=== PATIENT | female | born 1945 | race Caucasian/White ===

== ENCOUNTER 2019-05-10 13:25 | Outpatient (CLI) | payer MEDICARE, SELFPAY ==
--- NOTE | 2019-05-10 13:37 | ECG_ITS ---
Measurements Intervals [place] Rate: 68 P: 77 HI: 154 QRS: 69 QRSD: 84 T: 69 QT: 375 QTc: 399 Interpretive Statements SINUS RHYTHM WITH MARKED SINUS ARRHYTHMIA NORMAL ECG Electronically Signed On 05-10-2019 13:55:11 AIRCRAFT SERVIC[employer] by Sammy Allred D.O.
== END 2019-05-10 13:26 | disposition home or self-care (01) ==
LOC: CHSCARD 13:33
PROVIDERS: PCP Internal Medicine; Visit Provider Internal Medicine Cardiovascular Disease
DX: I49.9 Cardiac arrhythmia, unspecified (principal)
CPT/HCPCS: 93005

== ENCOUNTER 2019-05-17 09:32 | Outpatient (RCR) | payer MEDICARE, SELFPAY ==
--- NOTE | 2019-05-17 10:47 | PTOPEVAL ---
Thank you for referring this patient to [facility]. Please review, sign, date and return this plan of care [facility]. I agree with and certify that the following plan of care is medically necessary. Referring Physician Date Admitting Provider: Attending Provider: Darius Urbina MD Referring Provider: *PT Outpatient Evaluation Start: 05/17/19 10:10 Freq: Status: Active Protocol: Document 05/17/19 10:05 [facility] (Rec: 05/17/19 10:36 [facility] [id number]) Therapy Assessment Status Assessment Status Assessment Status Evaluation Outpatient Past Medical History Past Medical History Reason Unable to Obtain see patient intake form Evaluation Information Problem Diagnosis low back pain, L hip pain Onset 05/03/19 Additional Evaluation Detail oswestry = 56% functionally declined Subjective Information patient reports she has been Query Text:As Reported By Patient/ having pain in the low back Family and L side posterior hip for a few months. she reports no injury to the low back. she reports she has x-ray and believes she has also had an MRI of the back. patient reports she has increased pain with walking. she reports she has decreased pain with sitting with her legs propper up. she reports she has increased pain especially with cleaning her house (vaccuming , bending, dusting). she reports she is taking tramadol - she has been on this for pain in the back for a year or more. she reports she does not see much benefit from the tramadol. Prior Level of Function Comments Additional Prior Level of Function prior to a few months ago when Comments her back pain became increased she was able to do all above listed activities. she reports she feels the L side of her low back seems be getting worse more quickly. Pain Assessment Timing of Pain Assessment Timing of Pain Assessment Assessment Pain Scale Pain Scale Used Numeric (1 - 10) Self Report Pain Assessment Left Lower Back Reported Pain Level 7 Pain Description
== END 2019-05-31 17:00 | disposition home or self-care (01) ==
LOC: CHSPT 09:32
PROVIDERS: PCP Internal Medicine; Visit Provider Internal Medicine
DX: M54.5 Low back pain (principal)
CPT/HCPCS: 97014; 97110; 97161; G0283

== ENCOUNTER 2019-06-02 10:00 | Outpatient (RCR) | payer MEDICARE, SELFPAY | END 2019-06-07 12:52 | disposition home or self-care (01) | LOC: CHSSENLIFE 10:00 | PROVIDERS: PCP Internal Medicine; Visit Provider Psychiatry & Neurology Psychiatry | DX: F33.0 Major depressive disorder, recurrent, mild (principal); F41.9 Anxiety disorder, unspecified | CPT/HCPCS: 90792; 90853; 99213; G0463 ==

== ENCOUNTER 2019-08-04 09:41 | Outpatient (CLI) | payer MEDICARE, SELFPAY ==
[2019-08-04 09:52] LABS: Basophils Absolute Auto 0.04 K/mm3 (0.00-0.10); Basophils Percent Auto 0.8 % (0.0-1.0); Eosinophils Absolute Auto 0.14 K/mm3 (0.02-0.50); Eosinophils Percent Auto 2.9 % (1.0-6.0); Hematocrit 46.8 % (35.0-42.0); Immature Granulocyte Absolute 0.02 K/mm3 (0.00-0.00); Immature Granulocyte Percent A 0.4 % (0.0-0.0); Lymphocytes Absolute Auto 1.64 K/mm3 (1.10-4.50); Lymphocytes Percent Auto 33.5 % (18.0-42.0); Mean Corpuscular HGB Conc 29.9 g/dL (32.0-36.0); Mean Corpuscular Hemoglobin 31.9 pg (27.0-31.0); Mean Corpuscular Volume 106.6 fL (78.0-102.0); Mean Platelet Volume 10.3 fl (9.2-11.8); Monocytes Absolute Auto 0.35 K/mm3 (0.10-0.90); Monocytes Percent Auto 7.2 % (2.0-11.0); Neutrophils Absolute Auto 2.7 K/mm3 (1.7-7.2); Neutrophils Percent Auto 55.2 % (50.0-70.0); Platelet Count Result 198 K/mm3 (150-420); Red Blood Count 4.39 M/mm3 (4.20-5.40); Red Cell Distribution Width 12.7 % (11.6-14.4); White Blood Count 4.9 K/mm3 (4.8-10.8)
[2019-08-04 09:57] LABS: Add Urine Microscopic? NO; Appearance Urine Clear (Clear); Bilirubin Urine Negative (Negative); Blood Urine Negative (Negative); Color Urine Yellow (Yellow); Glucose Urine UA Negative (Negative); Ketones Urine Negative (Negative); Leukocyte Esterase Ur Negative (Negative); Nitrate Urine Negative (Negative); Protein Urine Negative (Negative); Specific Grav Ur 1.025 (1.010-1.020)
[2019-08-04 10:37] LABS: Alanine Aminotransferase 15 U/L (14-59); Albumin Level 3.3 g/dL (3.4-5.0); Alkaline Phosphatase 89 U/L (46-116); Anion Gap 14.7 mmol/L (7-16); Aspartate Amino Transferase 30 U/L (15-37); Bilirubin,Total 0.4 mg/dL (0.00-1.00); Blood Urea Nitrogen 18 mg/dL (7-18); Calcium 8.3 mg/dL (8.5-10.1); Carbon Dioxide 27 mmol/L (21-32); Chloride 107 mmol/L (98-108); Cholesterol 243 mg/dL (0-200); Estimated Glomerular Filt Rate > 60; Glucose 95 mg/dL (70-99); HDL Direct 72 mg/dL (40-60); LDL Cholesterol Calculated 159 mg/dL (<130); Osmolality Calculated 299 mOsm/kg (285-295); Potassium 4.7 mmol/L (3.5-5.1); Sodium 144 mmol/L (136-145); Total Protein 6.6 g/dL (6.4-8.2); Triglycerides 62 mg/dL (0-150)
== END 2019-08-04 09:42 | disposition home or self-care (01) ==
LOC: CHSLAB 09:43
PROVIDERS: PCP Internal Medicine; Visit Provider Internal Medicine
DX: E78.5 Hyperlipidemia, unspecified (principal); I10 Essential (primary) hypertension; D64.9 Anemia, unspecified
CPT/HCPCS: 36415; 80053; 80061; 81003; 84443; 85025

== ENCOUNTER 2019-11-09 09:40 | Outpatient (CLI) | payer MEDICARE, SELFPAY ==
[2019-11-09 09:50] LABS: Basophils Absolute Auto 0.03 K/mm3 (0.00-0.10); Basophils Percent Auto 0.6 % (0.0-1.0); Eosinophils Percent Auto 4.1 % (1.0-6.0); Hematocrit 40.8 % (35.0-42.0); Hemoglobin 13.2 g/dL (11.7-13.8); Immature Granulocyte Absolute 0.01 K/mm3 (0.00-0.00); Immature Granulocyte Percent A 0.2 % (0.0-0.0); Lymphocytes Absolute Auto 1.61 K/mm3 (1.10-4.50); Lymphocytes Percent Auto 33.4 % (18.0-42.0); Mean Corpuscular HGB Conc 32.4 g/dL (32.0-36.0); Mean Platelet Volume 9.5 fl (9.2-11.8); Monocytes Percent Auto 8.3 % (2.0-11.0); Neutrophils Absolute Auto 2.6 K/mm3 (1.7-7.2); Neutrophils Percent Auto 53.4 % (50.0-70.0); Platelet Count Result 236 K/mm3 (150-420); Red Blood Count 4.12 M/mm3 (4.20-5.40); White Blood Count 4.8 K/mm3 (4.8-10.8)
[2019-11-09 11:02] LABS: Alanine Aminotransferase 14 U/L (14-59); Albumin Level 3.4 g/dL (3.4-5.0); Alkaline Phosphatase 84 U/L (46-116); Anion Gap 5 mmol/L (8-16); Aspartate Amino Transferase 27 U/L (15-37); Bilirubin,Total 0.4 mg/dL (0.00-1.00); Blood Urea Nitrogen 19 mg/dL (7-18); Calcium 9.2 mg/dL (8.5-10.1); Carbon Dioxide 33 mmol/L (21-32); Chloride 104 mmol/L (98-108); Estimated Glomerular Filt Rate 44; Glucose 83 mg/dL (70-99); Osmolality Calculated 295 mOsm/kg (285-295); Potassium 4.6 mmol/L (3.5-5.1); Sodium 142 mmol/L (136-145); Total Protein 6.7 g/dL (6.4-8.2)
[2019-11-11 14:38] LABS: Parathyroid Intact 70 pg/mL (14-64)
[2019-11-12 20:02] LABS: Vitamin D 1,25 (OH)2 Total 45 pg/mL (18-72); Vitamin D2 1,25 (OH)2 <8 pg/mL; Vitamin D3 1,25 (OH)2 45 pg/mL
[2019-11-16 14:42] LABS: Vitamin D 25 Hydroxy 51 ng/mL (30-100)
== END 2019-11-09 09:41 | disposition home or self-care (01) ==
PROVIDERS: PCP Internal Medicine; Visit Provider Internal Medicine
DX: E88.09 Other disorders of plasma-protein metabolism, not elsewhere classified (principal); D75.89 Other specified diseases of blood and blood-forming organs; E55.9 Vitamin D deficiency, unspecified
CPT/HCPCS: 36415; 80053; 82306; 82652; 83970; 85025

== ENCOUNTER 2020-02-07 13:42 | Outpatient (CLI) | payer MEDICARE, SELFPAY ==
[2020-02-07 13:54] LABS: Basophils Absolute Auto 0.02 K/mm3 (0.00-0.10); Basophils Percent Auto 0.3 % (0.0-1.0); Eosinophils Absolute Auto 0.15 K/mm3 (0.02-0.50); Hematocrit 41.4 % (35.0-42.0); Hemoglobin 13.3 g/dL (11.7-13.8); Immature Granulocyte Absolute 0.03 K/mm3 (0.00-0.00); Immature Granulocyte Percent A 0.4 % (0.0-0.0); Lymphocytes Absolute Auto 1.78 K/mm3 (1.10-4.50); Lymphocytes Percent Auto 23.3 % (18.0-42.0); Mean Corpuscular HGB Conc 32.1 g/dL (32.0-36.0); Mean Corpuscular Volume 99.8 fL (78.0-102.0); Mean Platelet Volume 9.8 fl (9.2-11.8); Monocytes Absolute Auto 0.62 K/mm3 (0.10-0.90); Monocytes Percent Auto 8.1 % (2.0-11.0); Neutrophils Percent Auto 65.9 % (50.0-70.0); Platelet Count Result 228 K/mm3 (150-420); Red Blood Count 4.15 M/mm3 (4.20-5.40); White Blood Count 7.6 K/mm3 (4.8-10.8)
[2020-02-07 14:02] LABS: Add Urine Microscopic? YES; Appearance Urine Clear (Clear); Bilirubin Urine Negative (Negative); Blood Urine Negative (Negative); Color Urine Yellow (Yellow); Glucose Urine UA Negative (Negative); Ketones Urine 1+ (Negative); Leukocyte Esterase Ur Trace (Negative); Nitrate Urine Negative (Negative); Protein Urine 1+ (Negative); Specific Grav Ur >= 1.030 (1.010-1.020); pH Urine 5.5 (5.0-8.0)
[2020-02-07 14:10] LABS: Bacteria Urine 1+ /hpf; Mucus Urine Moderate /lpf; RBC Urine 0-2 /hpf (0-2); Squamous Epithelial Cell Urine Few /hpf (Few)
[2020-02-07 14:29] LABS: Alanine Aminotransferase 15 U/L (14-59); Albumin Level 3.8 g/dL (3.4-5.0); Alkaline Phosphatase 86 U/L (46-116); Anion Gap 9 mmol/L (8-16); Aspartate Amino Transferase 23 U/L (15-37); Bilirubin,Total 0.4 mg/dL (0.00-1.00); Blood Urea Nitrogen 21 mg/dL (7-18); Calcium 9.5 mg/dL (8.5-10.1); Carbon Dioxide 30 mmol/L (21-32); Chloride 105 mmol/L (98-108); Cholesterol 180 mg/dL (0-200); Estimated Glomerular Filt Rate 44; Glucose 77 mg/dL (70-99); HDL Direct 73 mg/dL (40-60); LDL Cholesterol Calculated 93 mg/dL (<130); Osmolality Calculated 300 mOsm/kg (285-295); Potassium 4.6 mmol/L (3.5-5.1); Sodium 144 mmol/L (136-145); Total Protein 6.9 g/dL (6.4-8.2); Triglycerides 69 mg/dL (0-150)
== END 2020-02-07 13:43 | disposition home or self-care (01) ==
LOC: CHSLAB 13:45
PROVIDERS: PCP Internal Medicine; Visit Provider Internal Medicine
DX: E78.5 Hyperlipidemia, unspecified (principal); I10 Essential (primary) hypertension; R82.90 Unspecified abnormal findings in urine
CPT/HCPCS: 36415; 80053; 80061; 81001; 85025; 87077; 87086; 87088; 87186

== ENCOUNTER 2020-06-27 10:33 | Outpatient (CLI) | payer MEDICARE, SELFPAY ==
[2020-06-27 10:44] LABS: Basophils Absolute Auto 0.03 K/mm3 (0.00-0.10); Basophils Percent Auto 0.6 % (0.0-1.0); Eosinophils Absolute Auto 0.36 K/mm3 (0.02-0.50); Eosinophils Percent Auto 6.8 % (1.0-6.0); Hematocrit 40.3 % (35.0-42.0); Immature Granulocyte Absolute 0.02 K/mm3 (0.00-0.00); Immature Granulocyte Percent A 0.4 % (0.0-0.0); Lymphocytes Percent Auto 39.5 % (18.0-42.0); Mean Corpuscular HGB Conc 32.3 g/dL (32.0-36.0); Mean Corpuscular Volume 99.3 fL (78.0-102.0); Mean Platelet Volume 9.3 fl (9.2-11.8); Monocytes Absolute Auto 0.44 K/mm3 (0.10-0.90); Monocytes Percent Auto 8.3 % (2.0-11.0); Neutrophils Absolute Auto 2.4 K/mm3 (1.7-7.2); Neutrophils Percent Auto 44.4 % (50.0-70.0); Platelet Count Result 222 K/mm3 (150-420); Red Blood Count 4.06 M/mm3 (4.20-5.40); Red Cell Distribution Width 12.7 % (11.6-14.4); White Blood Count 5.3 K/mm3 (4.8-10.8)
[2020-06-27 11:59] LABS: Alanine Aminotransferase 17 U/L (14-59); Albumin Level 3.4 g/dL (3.4-5.0); Alkaline Phosphatase 86 U/L (46-116); Anion Gap 8 mmol/L (8-16); Aspartate Amino Transferase 25 U/L (15-37); Bilirubin,Total 0.7 mg/dL (0.00-1.00); Blood Urea Nitrogen 21 mg/dL (7-18); CRP < 0.2 mg/dL (0.0-0.9); Carbon Dioxide 29 mmol/L (21-32); Chloride 106 mmol/L (98-108); Cholesterol 186 mg/dL (0-200); Estimated Glomerular Filt Rate 51; Glucose 78 mg/dL (70-99); HDL Direct 63 mg/dL (40-60); LDL Cholesterol Calculated 110 mg/dL (<130); Osmolality Calculated 298 mOsm/kg (285-295); Potassium 4.4 mmol/L (3.5-5.1); Sodium 143 mmol/L (136-145); Total Protein 6.5 g/dL (6.4-8.2); Triglycerides 66 mg/dL (0-150)
== END 2020-06-27 10:34 | disposition home or self-care (01) ==
LOC: CHSLAB 10:36
PROVIDERS: PCP Internal Medicine; Visit Provider Internal Medicine Cardiovascular Disease
DX: E78.5 Hyperlipidemia, unspecified (principal); I10 Essential (primary) hypertension; G89.29 Other chronic pain
CPT/HCPCS: 36415; 80053; 80061; 85025; 86140

== ENCOUNTER 2020-08-08 11:39 | Outpatient (CLI) | payer MEDICARE, SELFPAY ==
--- NOTE | ~2020-08-08 | XR_ITS ---
[id number]_[id number] 08/08/2020 12:09 Indication: Neck pain. Limited range of motion. Procedure: 4 view cervical spine Comparison: No prior studies for comparison. Findings: Normal cervical alignment. Vertebral body heights are maintained. No significant disc narro wing. Odontoid process within normal limits. There is mild multilevel uncinate and facet hypertrophy. There is carotid atherosclerotic changes, left greater than right. Lung apices are normal. Impression: 1: Mild cervical spondylosis. Reviewed, dictated and finalized at location A. Impression: 1: Mild cervical spondylosis.
--- NOTE | ~2020-08-08 | XR_ITS ---
EXAMINATION: XR heel LT min 2V DATE: 08/08/2020 12:09 INDICATION: Left heel pain and swelling. TECHNIQUE: 2 views of left calcaneus were obtained. COMPARISON: None. FINDINGS: Bone alignment is normal. No fracture. There is mild midfoot osteoarthritis. There are enth esophytes at the posterior and plantar aspects of calcaneal tuberosity. There is soft tissue swelling posterior to calcaneus, consistent with Mick deformity. IMPRESSION: 1. Mick deformity. Reviewed, dictated and finalized at location B. IMPRESSION: 1. Mick deformity.
--- NOTE | ~2020-08-08 | XR_ITS ---
EXAMINATION: XR ankle RT min 3V DATE: 08/08/2020 12:09 INDICATION: Right ankle pain. TECHNIQUE: 5 views of right ankle were obtained. COMPARISON: None. FINDINGS: Bone alignment is normal. No fracture. There is mild osteoarthritis of talonavicular joint. There are enthesophytes at the posterior and plantar aspects of calcaneal tuberosity. There is soft tissue swelling about the ankle. IMPRESSION: 1. No fracture. Reviewed, dictated and finalized at location B. IMPRESSION: 1. No fracture.
== END 2020-08-08 11:40 | disposition home or self-care (01) ==
LOC: CHSIMG 11:41
PROVIDERS: PCP Internal Medicine; Visit Provider Internal Medicine
DX: M79.672 Pain in left foot (principal); M25.571 Pain in right ankle and joints of right foot; M54.2 Cervicalgia
CPT/HCPCS: 72040; 73610; 73650

== ENCOUNTER 2020-08-15 15:12 | Outpatient (RCR) | payer MEDICARE, SELFPAY ==
--- NOTE | 2020-08-15 18:03 | PTOPEVAL ---
Thank you for referring Namita Trivedi to [facility].? The patient is scheduled to be seen for therapy? ____x/week for ___ weeks. Please review, sign, date and return this plan of care ARI. I agree with and certify that the following plan of care is medically necessary. Referring Physician Date Admitting Provider: Attending Provider: Darius Urbina MD Referring Provider: *PT Outpatient Evaluation Start: 08/15/20 15:19 Freq: Status: Active Protocol: Document 08/15/20 15:00 [facility] (Rec: 08/15/20 16:33 [facility] [id number]) Evaluation Information Problem Diagnosis cervical stenosis and L achilles tendinitis Onset 08/08/20 Subjective Information Namita Trivedi is a 75 year old Query Text:As Reported By Patient/ female who reports neck pain Family and L achilles pain. She reports both started insidiously about 2-3 months ago. She reports difficulty turning her head, looking up, and lateral flexing her neck in both durections. She reports difficulty looking over both shoulders to check her blind spot when driving. She reports increased achilles pain with ambulation. She is currently taking tramadol for her LBP, but no additional pain medications for her neck or achilles. She has 2 stairs to enter her home and reports no falls. She reports a hx of HTN and a heart arythmia monitored by her MD. Prior Level of Function Comments Additional Prior Level of Function Likes to walk her dog and Comments hopes to return to walking for short distances outside. Pain Assessment Pain Scale Pain Scale Used Numeric (1 - 10) Self Report Pain Assessment Left Posterior Foot/Feet Reported Pain Level 5 Lowest Pain Intensity 2 Greatest Pain Intensity 7 Neck Reported Pain Level 2 Lowest Pain Intensity 2 Greatest Pain Intensity 7 Pain Score Pain Score 2,5: Self Report Interventions Used Interventions Used By Clinicians Activity or ADL's,Exercise Cervical and Lumbar ROM Cervical ROM Cervical Flexion (0-60) 20 Query Text:Active in Degrees Cervical Extension (0-70) 30 Query
--- NOTE | 2020-09-28 10:48 | PTOPEVAL ---
Thank you for referring Namita Trivedi to [facility].? The patient is scheduled to be seen for therapy? ____x/week for ___ weeks. Please review, sign, date and return this plan of care ARI. I agree with and certify that the following plan of care is medically necessary. Referring Physician Date Admitting Provider: Attending Provider: Darius Urbina MD Referring Provider: *PT Outpatient Evaluation Start: 08/15/20 15:19 Freq: Status: Active Protocol: Document 09/28/20 09:45 J (Rec: 09/28/20 10:46 [facility] [id number]) Therapy Assessment Status Assessment Status Assessment Status Re-evaluation Evaluation Information Problem Diagnosis cervical stenosis and L achilles tendinitis Onset 08/08/20 Additional Evaluation Detail LEFS = 61% functional decline (patient reports mostly due to hip and back) NDI = 30% functional decline Subjective Information patient reports she is sore Query Text:As Reported By Patient/ this date. she reports she Family drove to [place] yesterday and reports she has been sore since this drive. she reports the soreness is increased on the R side of her neck and R shoulder this date. Pain Assessment Timing of Pain Assessment Timing of Pain Assessment Assessment Pain Scale Pain Scale Used Numeric (1 - 10) Self Report Pain Assessment Left Posterior Foot/Feet Reported Pain Level 0 Neck Reported Pain Level 6 Greatest Pain Intensity 6 Pain Score Pain Score 0,6: Self Report Interventions Used Interventions Used By Clinicians Activity or ADL's,Education, Electrical Stimulation, Exercise,Heat,Manual Therapy Techniques Cervical and Lumbar ROM Cervical ROM Cervical Flexion (0-60) 45 Query Text:Active in Degrees Cervical Extension (0-70) 45 Query Text:Active in Degrees Cervical Lateral Flexion Right (0-50) 20 Query Text:Active in Degrees Cervical Lateral Flexion Left (0-50) 20 Query Text:Active in Degrees Cervical Rotation Right (0-90) 45 Query Text:Active in Degrees Cervical Rotation Left (0-90) 50 Query Text:Active in Degrees Lower Extremity Range of Motion General Lower Extremity Range of Motion Gross Lower Extremity Range of Motion L ankle AROM PF 50, DF 12 Comments R ankle AROM PF 55, DF 15 Lower Extremity Muscle Strength Testing General Lower Extremity Strength Gross Lower E
--- NOTE | 2020-09-28 10:52 | PTOPEVAL ---
Thank you for referring Namita Trivedi to [facility].? The patient is scheduled to be seen for therapy? ____x/week for ___ weeks. Please review, sign, date and return this plan of care ARI. I agree with and certify that the following plan of care is medically necessary. Referring Physician Date Admitting Provider: Attending Provider: Darius Urbina MD Referring Provider: *PT Outpatient Evaluation Start: 08/15/20 15:19 Freq: Status: Active Protocol: Document 09/28/20 09:45 J (Rec: 09/28/20 10:46 [facility] [id number]) Therapy Assessment Status Assessment Status Assessment Status Re-evaluation Evaluation Information Problem Diagnosis cervical stenosis and L achilles tendinitis Onset 08/08/20 Additional Evaluation Detail LEFS = 61% functional decline (patient reports mostly due to hip and back) NDI = 30% functional decline Subjective Information patient reports she is sore Query Text:As Reported By Patient/ this date. she reports she Family drove to [place] yesterday and reports she has been sore since this drive. she reports the soreness is increased on the R side of her neck and R shoulder this date. Pain Assessment Timing of Pain Assessment Timing of Pain Assessment Assessment Pain Scale Pain Scale Used Numeric (1 - 10) Self Report Pain Assessment Left Posterior Foot/Feet Reported Pain Level 0 Neck Reported Pain Level 6 Greatest Pain Intensity 6 Pain Score Pain Score 0,6: Self Report Interventions Used Interventions Used By Clinicians Activity or ADL's,Education, Electrical Stimulation, Exercise,Heat,Manual Therapy Techniques Cervical and Lumbar ROM Cervical ROM Cervical Flexion (0-60) 45 Query Text:Active in Degrees Cervical Extension (0-70) 45 Query Text:Active in Degrees Cervical Lateral Flexion Right (0-50) 20 Query Text:Active in Degrees Cervical Lateral Flexion Left (0-50) 20 Query Text:Active in Degrees Cervical Rotation Right (0-90) 45 Query Text:Active in Degrees Cervical Rotation Left (0-90) 50 Query Text:Active in Degrees Lower Extremity Range of Motion General Lower Extremity Range of Motion Gross Lower Extremity Range of Motion L ankle AROM PF 50, DF 12 Comments R ankle AROM PF 55, DF 15 Lower Extremity Muscle Strength Testing General Lower Extremity Strength Gross Lower E
== END 2020-10-03 23:59 | disposition home or self-care (01) ==
LOC: CHSPT 15:12
PROVIDERS: PCP Internal Medicine; Visit Provider Internal Medicine
DX: M54.2 Cervicalgia (principal); M47.812 Spondylosis without myelopathy or radiculopathy, cervical region; M76.62 Achilles tendinitis, left leg
CPT/HCPCS: 97014; 97110; 97140; 97161; G0283

== ENCOUNTER 2021-01-26 12:33 | Outpatient (CLI) | payer MEDICARE, SELFPAY ==
[2021-01-26 12:53] LABS: Basophils Absolute Auto 0.02 K/mm3 (0.00-0.10); Basophils Percent Auto 0.4 % (0.0-1.0); Eosinophils Percent Auto 3.8 % (1.0-6.0); Immature Granulocyte Absolute 0.02 K/mm3 (0.00-0.00); Immature Granulocyte Percent A 0.4 % (0.0-0.0); Lymphocytes Percent Auto 30.5 % (18.0-42.0); Mean Corpuscular Hemoglobin 31.9 pg (27.0-31.0); Mean Corpuscular Volume 102.9 fL (78.0-102.0); Mean Platelet Volume 9.3 fl (9.2-11.8); Monocytes Absolute Auto 0.37 K/mm3 (0.10-0.90); Neutrophils Percent Auto 57.9 % (50.0-70.0); Platelet Count Result 212 K/mm3 (150-420); Red Blood Count 4.08 M/mm3 (4.20-5.40); Red Cell Distribution Width 12.3 % (11.6-14.4); White Blood Count 5.3 K/mm3 (4.8-10.8)
[2021-01-26 13:41] LABS: Alanine Aminotransferase 17 U/L (14-59); Albumin Level 3.4 g/dL (3.4-5.0); Alkaline Phosphatase 96 U/L (46-116); Anion Gap 7 mmol/L (8-16); Aspartate Amino Transferase 26 U/L (15-37); Bilirubin,Total 0.3 mg/dL (0.00-1.00); Blood Urea Nitrogen 27 mg/dL (7-18); Calcium 9.1 mg/dL (8.5-10.1); Carbon Dioxide 33 mmol/L (21-32); Chloride 105 mmol/L (98-108); Cholesterol 203 mg/dL (0-200); Estimated Glomerular Filt Rate 49; Glucose 83 mg/dL (70-99); HDL Direct 66 mg/dL (40-60); LDL Cholesterol Calculated 114 mg/dL (<130); Osmolality Calculated 304 mOsm/kg (285-295); Potassium 4.8 mmol/L (3.5-5.1); Sodium 145 mmol/L (136-145); Thyroid Stimulating Hormone 1.23 uIU/mL (0.36-3.74); Total Protein 6.3 g/dL (6.4-8.2); Triglycerides 116 mg/dL (0-150)
== END 2021-01-26 12:34 | disposition home or self-care (01) ==
LOC: CHSLAB 12:35
PROVIDERS: PCP Internal Medicine; Visit Provider Internal Medicine
DX: E78.5 Hyperlipidemia, unspecified (principal); I10 Essential (primary) hypertension
CPT/HCPCS: 36415; 80053; 80061; 84443; 85025

== ENCOUNTER 2021-03-23 10:22 | Outpatient (CLI) | payer MEDICARE, SELFPAY ==
[2021-03-23 11:26] LABS: SARS-CoV-2 Ag Negative (Negative)
== END 2021-03-23 10:23 | disposition home or self-care (01) ==
LOC: CHSLAB 10:24
PROVIDERS: PCP Internal Medicine; Visit Provider Internal Medicine
DX: Z20.822 Contact with and (suspected) exposure to COVID-19 (principal)
CPT/HCPCS: 87426; C9803

== ENCOUNTER 2021-08-03 12:01 | Outpatient (CLI) | payer MEDICARE, SELFPAY ==
[2021-08-03 12:21] LABS: Basophils Absolute Auto 0.03 K/mm3 (0.00-0.10); Basophils Percent Auto 0.4 % (0.0-1.0); Eosinophils Absolute Auto 0.11 K/mm3 (0.02-0.50); Eosinophils Percent Auto 1.6 % (1.0-6.0); Hematocrit 42.8 % (35.0-42.0); Hemoglobin 13.5 g/dL (11.7-13.8); Immature Granulocyte Absolute 0.02 K/mm3 (0.00-0.00); Immature Granulocyte Percent A 0.3 % (0.0-0.0); Lymphocytes Percent Auto 32.7 % (18.0-42.0); Mean Corpuscular HGB Conc 31.5 g/dL (32.0-36.0); Mean Corpuscular Hemoglobin 31.5 pg (27.0-31.0); Mean Corpuscular Volume 99.8 fL (78.0-102.0); Mean Platelet Volume 9.3 fl (9.2-11.8); Monocytes Absolute Auto 0.43 K/mm3 (0.10-0.90); Monocytes Percent Auto 6.1 % (2.0-11.0); Neutrophils Absolute Auto 4.2 K/mm3 (1.7-7.2); Neutrophils Percent Auto 58.9 % (50.0-70.0); Platelet Count Result 274 K/mm3 (150-420); Red Blood Count 4.29 M/mm3 (4.20-5.40); Red Cell Distribution Width 12.2 % (11.6-14.4)
[2021-08-03 18:15] LABS: Alanine Aminotransferase 14 U/L (14-59); Albumin Level 3.8 g/dL (3.4-5.0); Alkaline Phosphatase 89 U/L (46-116); Anion Gap 7 mmol/L (8-16); Aspartate Amino Transferase 27 U/L (15-37); Bilirubin,Total 0.4 mg/dL (0.00-1.00); Blood Urea Nitrogen 18 mg/dL (7-18); Calcium 9.3 mg/dL (8.5-10.1); Carbon Dioxide 30 mmol/L (21-32); Chloride 103 mmol/L (98-108); Cholesterol 202 mg/dL (0-200); Estimated Glomerular Filt Rate 53; Glucose 86 mg/dL (70-99); HDL Direct 69 mg/dL (40-60); LDL Cholesterol Calculated 113 mg/dL (<130); Osmolality Calculated 290 mOsm/kg (285-295); Potassium 4.6 mmol/L (3.5-5.1); Sodium 140 mmol/L (136-145); Thyroid Stimulating Hormone 1.04 uIU/mL (0.36-3.74); Total Protein 7.3 g/dL (6.4-8.2); Triglycerides 99 mg/dL (0-150)
== END 2021-08-03 12:02 | disposition home or self-care (01) ==
LOC: CHSLAB 12:05
PROVIDERS: PCP Internal Medicine; Visit Provider Internal Medicine
DX: I10 Essential (primary) hypertension (principal); E78.5 Hyperlipidemia, unspecified; R53.83 Other fatigue
CPT/HCPCS: 36415; 80053; 80061; 84443; 85025

== ENCOUNTER 2021-09-14 12:07 | Outpatient (CLI) | payer MEDICARE, SELFPAY ==
--- NOTE | 2021-09-14 12:13 | ECHO_ITS ---
Patient Info Name: Namita Trivedi Age: 76 years : 1945 Gender: Female Ht: 65 in Wt: 217 lbs BSA: 2.17 m2 HR: 77 bpm BP: 149 / 62 mmHg Technical Quality: Fair Exam Date: 09/14/2021 12:31 PM Exam Location: [facility] Patient Status: Outpatient Admit Date: 09/14/2021 Staff Ordering Physician: Sammy Allred DO Dredge Boat Engineer: Carlos Hill RDCS, RT Attending Provider: Sammy Allred DO Referring Physician: Chalino MARROQUIN; Exam Type: CA echo doppler color flow Study Info Indications I35.9 - Nonrheumatic aortic valve disorder, unspecified Complete two-dimensional, color flow and Doppler transthoracic echocardiogram is performed. Strain analysis performed. Summary 1. Complete two-dimensional, color flow and Doppler transthoracic echocardiogram is performed. 2. Left ventricular chamber dimension is normal. 3. Left ventricular systolic function is normal, estimated at 60-65%. 4. The left ventricular diastolic function is grade I diastolic dysfunction. 5. E/e' 9 is minimally elevated. 6. Global longitudinal strain is abnormal at -12.6%. 7. There is moderate aortic valve sclerosis. 8. There is mild aortic valve stenosis with a peak velocity of 219 cm/s, mean gradient of 10 mmHg, and aortic valve area of 1.8 cm2. 9. There is mild aortic valve regurgitation. Left Ventricle E/e' 9 is minimally elevated. Global longitudinal strain is abnormal at -12.6%. Left ventricular chamber dimension is normal. Left ventricular systolic function is normal, estimated at 60-65%. The left ventricular diastolic function is grade I diastolic dysfunction. Right Ventricle Right ventricular systolic function is normal and with normal TAPSE 2.0 cm. Right ventricular chamber dimension is normal. Left Atria Left atrial chamber dimension is normal. Right Atria Right atrial chamber dimension is normal. Aortic Valve The aortic valve is not well visualized. There is moderate aortic valve sclerosis. There is mild aortic valve stenosis with a peak velocity of 219 cm/s, mean gradient of 10 mmHg, and aortic valve area of 1.8 cm2. There is mild aortic valve regurgitation. Pulmonic Valve There is no pulmonic regurgitation. Mitral Valve There is no mitral valve stenosis. There is no mitral valve regurgitation. Tricuspid Valve There is no tricuspid valve regurgitation. Pericardium/Pleural There is no pericardial effusion. Inferior Vena Cava Normal inferior vena cava with >50% collapse upon inspiration consistent with normal right atrial pressure, 5 mmHg. Aorta The aortic root size at the sinus of Valsalva is normal. Left Ventricular Outflow Tract Name Value Normal LVOT 2D LVOT Diameter 2.1 cm LVOT Doppler LVOT Peak Velocity 129 cm/s LVOT Peak Gradient 7 mmHg LVOT Mean Gradient 3 mmHg LVOT VTI 23 cm LVOT VTI/AV VTI Ratio 0.5 LVOT Stroke Volume 75 ml Mitral Valve Name
== END 2021-09-14 12:08 | disposition home or self-care (01) ==
LOC: CHSIMG 12:09
PROVIDERS: PCP Internal Medicine; Visit Provider Internal Medicine Cardiovascular Disease
DX: I35.0 Nonrheumatic aortic (valve) stenosis (principal)
CPT/HCPCS: 93306

== ENCOUNTER 2022-01-11 11:15 | Outpatient (CLI) | payer MEDICARE, SELFPAY ==
--- NOTE | ~2022-01-11 | CT_ITS ---
EXAMINATION: CT BRAIN W/O DATE: 01/11/2022 11:35 INDICATION: Headache after injury. TECHNIQUE: Computed tomography (CT) of the head was performed without intravenous contrast. The dose- length product was 203.74 mGy-cm. Automated exposure control and iterative reconstruction technique w ere employed. COMPARISON: CT dated 05/27/2018 FINDINGS: Decreased brain parenchymal volume. There are scattered mild periventricular and subcortica l white matter changes, most likely related to small vessel ischemic disease (microangiopathy). There is intracranial atherosclerosis. Normal black-white differentiation. No acute intracranial hemorrhag e, infarction, mass or mass effect. No ventriculomegaly or midline shift. Midline sagittal images demonstrate a normal corpus callosum, c raniovertebral junction and sella turcica. Basilar cisterns are patent. Paranasal sinuses and mastoids are pneumatized. No depressed skull fractures. IMPRESSION: 1. No acute intracranial abnormality. Reviewed, dictated and finalized at location B.
--- NOTE | ~2022-01-11 | CT_ITS ---
EXAMINATION: CT cervical spine wo con DATE: 01/11/2022 11:35 INDICATION: Neck pain after fall TECHNIQUE: Computed tomography (CT) of the cervical spine was performed without intravenous contrast. The dose-length product was 204 mGy-cm. Automated exposure control and iterative reconstruction tech nique were employed. COMPARISON: None FINDINGS: Normal cervical alignment. There is degenerative disc disease at C4-5, C5-6 and C6-7. No ac ravindra fracture or traumatic malalignment. Craniovertebral junction is normal. Odontoid process is анна l. There is mild multilevel uncinate and facet hypertrophy. Lung apices are normal. There is carotid atherosclerosis. IMPRESSION: 1. No acute fracture. 2: Mild cervical spondylosis. Reviewed, dictated and finalized at location B.
== END 2022-01-11 11:16 | disposition home or self-care (01) ==
LOC: CHSIMG 11:17
PROVIDERS: PCP Internal Medicine; Visit Provider Internal Medicine
DX: S09.90XA Unspecified injury of head, initial encounter (principal); R51.9 Headache, unspecified; M54.2 Cervicalgia
CPT/HCPCS: 70450; 72125

== ENCOUNTER 2022-01-25 10:28 | Outpatient (CLI) | payer MEDICARE, SELFPAY ==
[2022-01-25 10:52] LABS: Appearance Urine Clear (Clear); Basophils Absolute Auto 0.04 K/mm3 (0.00-0.10); Basophils Percent Auto 0.5 % (0.0-1.0); Bilirubin Urine Negative (Negative); Blood Urine Negative (Negative); Eosinophils Absolute Auto 0.14 K/mm3 (0.02-0.50); Eosinophils Percent Auto 1.8 % (1.0-6.0); Glucose Urine UA Negative (Negative); Hematocrit 41.7 % (35.0-42.0); Hemoglobin 13.2 g/dL (11.7-13.8); Immature Granulocyte Absolute 0.02 K/mm3 (0.00-0.00); Immature Granulocyte Percent A 0.3 % (0.0-0.0); Ketones Urine Trace (Negative); Leukocyte Esterase Ur Negative LEU/UL (Negative); Lymphocytes Absolute Auto 1.74 K/mm3 (1.10-4.50); Lymphocytes Percent Auto 22.8 % (18.0-42.0); Mean Corpuscular HGB Conc 31.7 g/dL (32.0-36.0); Mean Corpuscular Hemoglobin 32.1 pg (27.0-31.0); Mean Corpuscular Volume 101.5 fL (78.0-102.0); Mean Platelet Volume 9.5 fl (9.2-11.8); Monocytes Absolute Auto 0.62 K/mm3 (0.10-0.90); Monocytes Percent Auto 8.1 % (2.0-11.0); Neutrophils Absolute Auto 5.1 K/mm3 (1.7-7.2); Neutrophils Percent Auto 66.5 % (50.0-70.0); Nitrate Urine Negative (Negative); Platelet Count Result 216 K/mm3 (150-420); Protein Urine Trace (Negative); Red Blood Count 4.11 M/mm3 (4.20-5.40); Red Cell Distribution Width 12.7 % (11.6-14.4); Specific Grav Ur 1.025 (1.010-1.020); White Blood Count 7.6 K/mm3 (4.8-10.8); pH Urine 6.5 (5.0-8.0)
[2022-01-25 10:57] LABS: Add Urine Microscopic? YES; Bacteria Urine Trace /hpf; Color Urine Dark Orange (Yellow); RBC Urine None seen /hpf (0-2); Squamous Epithelial Cell Urine Few /hpf (Few); WBC Urine None seen /hpf (0-3)
[2022-01-25 11:48] LABS: Alanine Aminotransferase 20 U/L (14-59); Albumin Level 3.5 g/dL (3.4-5.0); Alkaline Phosphatase 73 U/L (46-116); Anion Gap 6 mmol/L (8-16); Aspartate Amino Transferase 25 U/L (15-37); Bilirubin,Total 0.3 mg/dL (0.00-1.00); Blood Urea Nitrogen 25 mg/dL (7-18); Calcium 8.5 mg/dL (8.5-10.1); Carbon Dioxide 31 mmol/L (21-32); Chloride 107 mmol/L (98-108); Estimated Glomerular Filt Rate 39; Glucose 100 mg/dL (70-99); Osmolality Calculated 302 mOsm/kg (285-295); Potassium 4.9 mmol/L (3.5-5.1); Sodium 144 mmol/L (136-145); Total Protein 6.4 g/dL (6.4-8.2)
[2022-01-25 11:53] LABS: CRP < 0.5 mg/dL (0.0-0.9)
== END 2022-01-25 10:29 | disposition home or self-care (01) ==
LOC: CHSLAB 10:30
PROVIDERS: PCP Internal Medicine; Visit Provider Internal Medicine
DX: R51.9 Headache, unspecified (principal); I10 Essential (primary) hypertension; R53.83 Other fatigue
CPT/HCPCS: 36415; 80053; 81001; 85025; 86140

== ENCOUNTER 2022-02-20 14:37 | Outpatient (CLI) | payer MEDICARE, SELFPAY ==
[2022-02-20 15:54] LABS: Albumin Level 3.6 g/dL (3.4-5.0); Alkaline Phosphatase 71 U/L (46-116); Anion Gap 6 mmol/L (8-16); Aspartate Amino Transferase 28 U/L (15-37); Bilirubin,Total 0.3 mg/dL (0.00-1.00); Blood Urea Nitrogen 15 mg/dL (7-18); Carbon Dioxide 32 mmol/L (21-32); Chloride 108 mmol/L (98-108); Estimated Glomerular Filt Rate 51; Glucose 83 mg/dL (70-99); Osmolality Calculated 301 mOsm/kg (285-295); Potassium 4.7 mmol/L (3.5-5.1); Sodium 146 mmol/L (136-145); Total Protein 6.4 g/dL (6.4-8.2)
[2022-02-20 16:16] LABS: Alanine Aminotransferase 13 U/L (14-59)
== END 2022-02-20 14:38 | disposition home or self-care (01) ==
LOC: CHSLAB 14:39
PROVIDERS: PCP Internal Medicine; Visit Provider Internal Medicine
DX: R79.89 Other specified abnormal findings of blood chemistry (principal)
CPT/HCPCS: 36415; 80053

== ENCOUNTER 2022-04-04 09:54 | Emergency (ER) | payer MEDICARE, SELFPAY ==
--- NOTE | ~2022-04-04 | XR_ITS ---
XR chest 1V portable DATE: 04/04/2022 10:29 INDICATION: Dizziness, hypotension, weakness TECHNIQUE: Portable upright AP chest on 04/04/2022 at 1038 hours COMPARISON: May 13, 2018 CTA chest FINDINGS: Cardiomegaly. Aortic arch calcification and minimal thoracic aortic tortuosity. No hilar or mediastinal enlargement is detected. No pulmonary infiltrate or consolidation, pleural effusion or pulmonary vascular congestion or pneumo thorax. Diffuse osteopenia. Mild dextroscoliosis and degenerative spurring of the thoracic spine. IMPRESSION: Cardiomegaly, aortic atherosclerosis No active pulmonary disease Reviewed, dictated and finalized at location L. CIENCE TECHNICIAN
--- NOTE | 2022-04-04 10:07 | ECG_ITS ---
Measurements Intervals [place] Rate: 67 P: 51 NM: 158 QRS: 24 QRSD: 86 T: 29 QT: 404 QTc: 429 Interpretive Statements SINUS RHYTHM WITH SINUS ARRHYTHMIA BORDERLINE T WAVE ABNORMALITY- ANTERIOR LEADS BASELINE ARTIFACT- III, AVR, AVL, AVF BORDERLINE ECG COMPARED TO ECG 05/10/2019 13:47:35 NO SIGNIFICANT CHANGES Electronically Signed On 04-04-2022 10:55:06 [place] by Sammy Allred D.O.
[2022-04-04 10:23] VITALS: BP 118/85; PULSE 55; RESP 20; TEMP 36.6; O2SAT 98
[2022-04-04 10:27] LABS: Basophils Absolute Auto 0.02 K/mm3 (0.00-0.10); Basophils Percent Auto 0.4 % (0.0-1.0); Eosinophils Absolute Auto 0.09 K/mm3 (0.02-0.50); Eosinophils Percent Auto 1.8 % (1.0-6.0); Hematocrit 38.1 % (35.0-42.0); Hemoglobin 12.5 g/dL (11.7-13.8); Immature Granulocyte Absolute 0.01 K/mm3 (0.00-0.00); Immature Granulocyte Percent A 0.2 % (0.0-0.0); Lymphocytes Percent Auto 32.8 % (18.0-42.0); Mean Corpuscular HGB Conc 32.8 g/dL (32.0-36.0); Mean Corpuscular Hemoglobin 33.1 pg (27.0-31.0); Mean Corpuscular Volume 100.8 fL (78.0-102.0); Monocytes Absolute Auto 0.48 K/mm3 (0.10-0.90); Monocytes Percent Auto 9.8 % (2.0-11.0); Neutrophils Absolute Auto 2.7 K/mm3 (1.7-7.2); Platelet Count Result 196 K/mm3 (150-420); Red Blood Count 3.78 M/mm3 (4.20-5.40); Red Cell Distribution Width 12.1 % (11.6-14.4); White Blood Count 4.9 K/mm3 (4.8-10.8)
[2022-04-04 10:44] LABS: Lactic Acid Reflex 1.7 mmol/L (0.4-2.0)
[2022-04-04 10:45] LABS: Alanine Aminotransferase 11 U/L (14-59); Albumin Level 3.4 g/dL (3.4-5.0); Alkaline Phosphatase 63 U/L (46-116); Anion Gap 10 mmol/L (8-16); Aspartate Amino Transferase 26 U/L (15-37); Bilirubin,Total 0.5 mg/dL (0.00-1.00); Blood Urea Nitrogen 22 mg/dL (7-18); Calcium 8.8 mg/dL (8.5-10.1); Carbon Dioxide 29 mmol/L (21-32); Chloride 105 mmol/L (98-108); Estimated CRCL calculation 39 ml/min; Estimated Glomerular Filt Rate 42; Glucose 93 mg/dL (70-99); Osmolality Calculated 301 mOsm/kg (285-295); Potassium 4.6 mmol/L (3.5-5.1); Sodium 144 mmol/L (136-145); Total Protein 6.6 g/dL (6.4-8.2); Troponin I 11.2 ng/L (0.00-60.4)
[2022-04-04] MEDS: SODIUM CHLORIDE 0.9% IV 500 ML 999 ML IV CONT (10:50)
[2022-04-04 10:53] LABS: CRP < 0.5 mg/dL (0.0-0.9)
--- NOTE | 2022-04-04 11:53 | ED.DIZZY ---
HPI - Dizziness General Chief Complaint: Dizziness Stated Complaint: low blood pressure Time Seen by Provider: 04/04/22 09:57 Source: patient and EMS Mode of arrival: EMS Limitations: no limitations History of Present Illness HPI Narrative: this is a 76-year-old female with a history hypertension hyperlipidemia has been feeling dizzy with some mild weakness over the past 3 to 4 weeks, patient had her blood pressure checked and was a little bit low and called EMS and brought her to the emergency department. Otherwise patient denies any fever chills has been having some dizzy spells blood pressure here currently was 118 systolic. Denies any chest pain or shortness of breath no no abdominal pain no diarrhea constipation denies any dysuria or flank pain no cough or congestion. MD elicited complaint: dizziness Onset (ago): day(s) Timing: gradual onset Severity: mild Description: lightheadedness and off-balance Exacerbating factors: nothing Relieving factors: nothing Associated symptoms: other ( weakness) Related Data Home Medications Medication Instructions Recorded Confirmed lorazepam 0.5 mg tablet 0.5 mg PO DAILY PRN 01/15/19 08/27/21 tramadol 50 mg tablet 50 mg PO Q6H PRN 01/15/19 08/27/21 alendronate 70 mg tablet 70 mg PO WEEKLY 05/10/19 08/27/21 Allergies Allergy/AdvReac Type Severity Reaction Status Date / Time No Known Allergies Allergy Verified 08/27/21 14:02 Review of Systems Review of Systems: All systems reviewed & are unremarkable except as noted in HPI and below PMFSH Past Medical History Medical History Anxiety CKD (chronic kidney disease) stage 3, GFR 30-59 ml/min Colon cancer Depression Elevated lipids Essential hypertension Headache, migraine History of stroke Surgical History Surgical History H/O hernia repair Hx of appendectomy Social History Social History Smoking status: Never smoker Exam Const: General: healthy appearing Nutritional Appearance: well nourished Orientation/consciousness: patient oriented x3 Limitations: no limitations HENMT: Head: normal to inspection Face and sinus: normal facial exam Mouth: Yes Normal oral and palatal mucosa present Eyes: Conjunctivae: conjunctivae normal Pupils: Equal, round and reactive pupils present EOM: EOMs intact bilaterally Neck: Neck: normal visual inspection, no lymphadenopathy and no meningeal signs Chest: Chest palpation & inspection: normal inspection of the chest Resp: Effort & Inspection: normal respiratory effort Auscultation: clear to auscultation bilaterally Cardio: Rate: regular rate Rhythm: regular rhythm GI: Auscultation: normal bowel sounds : General: Yes bladder normal to palpation Urinary Catheter: Urinary Catheter: patent and draining Back/Spine/Pelvis: Back: no CVA tenderness Skin: General skin exam: normal color Rashes: no rashes Wounds: no wounds Neuro: General: patient oriented x3 and moves all extremities Cranial nerves: Yes Nystagmus not present Speech: normal speech Extrem: General: normal to inspection Psych: Mental Status: mental status grossly normal Course Course Emergency Course: Labs x-rays EKGs reviewed with patient with no acute findings. Vital Signs Vital signs: Vital Signs Temperature 36.6 C 04/04/22 10:23 Pulse Rate 55 L 04/04/22 10:23 Respiratory Rate 20 04/04/22 10:23 Blood Pressure 118/85 04/04/22 10:23 Pulse Oximetry 98 04/04/22 10:23 Oxygen Delivery Room Air 04/04/22 10:23 Temperature 36.7 C 04/04/22 14:00 Pulse Rate 60 04/04/22 14:00 Respiratory Rate 20 04/04/22 14:00 Blood Pressure 119/80 04/04/22 14:00 Pulse Oximetry 98 04/04/22 14:00 Oxygen Delivery Room Air 04/04/22 14:00 MDM - Dizziness Lab Data 04/04/22 10:22
[2022-04-04 12:07] LABS: Add Urine Microscopic? YES; Appearance Urine Clear (Clear); Bilirubin Urine Negative (Negative); Blood Urine Negative (Negative); Color Urine Light Yellow (Yellow); Glucose Urine UA Negative (Negative); Ketones Urine Negative (Negative); Leukocyte Esterase Ur 2+ LEU/UL (Negative); Nitrate Urine Negative (Negative); Protein Urine Negative (Negative); Specific Grav Ur 1.015 (1.010-1.020); Urobilinogen Urine 0.2 mg/dL (0.2-1.0); pH Urine 7.5 (5.0-8.0)
[2022-04-04 12:14] LABS: RBC Urine None seen /hpf (0-2); Squamous Epithelial Cell Urine Occasional /hpf (Few)
[2022-04-04 12:15] LABS: Bacteria Urine Trace /hpf
[2022-04-04 12:30] VITALS: BP 116/78; PULSE 58; RESP 20; O2SAT 98
[2022-04-04] MEDS: ACETAMINOPHEN 500 MG TABLET 1000 MG PO (13:00)
[2022-04-04 14:00] VITALS: BP 119/80; PULSE 60; RESP 20; TEMP 36.7; O2SAT 98
== END 2022-04-04 14:02 | disposition home or self-care (01) ==
PROVIDERS: Emergency Provider Emergency Medicine; PCP Internal Medicine
DX: N39.0 Urinary tract infection, site not specified (principal); F41.9 Anxiety disorder, unspecified; E78.5 Hyperlipidemia, unspecified; I12.9 Hypertensive chronic kidney disease with stage 1 through stage 4 chronic kidney disease, or unspecified chronic kidney disease; N18.30 Chronic kidney disease, stage 3 unspecified; Z85.038 Personal history of other malignant neoplasm of large intestine
CPT/HCPCS: 36415; 71045; 80053; 81001; 83605; 84484; 85025; 86140; 87086; 87088; 93005; 96361; 96365; 99284; J0696; J7040

== ENCOUNTER 2022-10-24 06:59 | Outpatient (CLI) | payer MEDICARE, SELFPAY ==
--- NOTE | ~2022-10-24 | XR_ITS ---
AP and lateral views of the bilateral hips Clinical history: Pain Findings: No acute fracture or dislocation is seen. Osseous alignment is anatomic. There is mild dege nerative spurring of both hip joints, left worse than right.. Soft tissues are unremarkable. Impression: Mild degenerative change of both hip joints, left worse than right. Reviewed, dictated and finalized at location . Impression: Mild degenerative change of both hip joints, left worse than right.
--- NOTE | ~2022-10-24 | XR_ITS ---
Right Knee Technique: AP, lateral, and sunrise views were obtained. Clinical History: Pain Findings: No fracture or dislocation is seen. Right knee arthroplasty hardware is in place. No hardwa re complication is evident. Soft tissues are unremarkable. No joint effusion is seen. Impression: No acute abnormality. Right knee arthroplasty in place. Reviewed, dictated and finalized at location . Impression: No acute abnormality. Right knee arthroplasty in place.
--- NOTE | ~2022-10-24 | XR_ITS ---
Left Knee Technique: AP, lateral, and sunrise views were obtained. Clinical History: Pain Findings: No fracture or dislocation is seen. Osseous alignment is anatomic. There is minimal degener ative spurring of the patella. Probable subtle chondrocalcinosis of menisci. No joint effusion is see n. Impression: Minimal degenerative spurring, as above. Probable subtle chondrocalcinosis of the menisci. Reviewed, dictated and finalized at location M. Impression: Minimal degenerative spurring, as above. Probable subtle chondrocalcinosis of the menisci.
--- NOTE | ~2022-10-24 | MR_ITS ---
. EXAMINATION: MR lumbar spine wo con DATE: 10/24/2022 08:19 INDICATION: Back pain with spinal stenosis. Low back pain. TECHNIQUE: Magnetic resonance imaging (MRI) of the lumbar spine was performed without intravenous con trast. Sequences included sagittal T2-weighted FSE, sagittal T2-weighted FS FSE, sagittal T1-weighted FSE, and axial T2-weighted FSE. COMPARISON: Lumbar spine MRI 08/18/2013 FINDINGS: There is 4 mm retrolisthesis of L1 on L2, 3 mm retrolisthesis of L2 on L3, and 3 mm anterol isthesis of L4 on L5. There is mild chronic anterior wedging of T11 vertebral body. There is moderate ly decreased disc height at L1-L2, mildly decreased disc height at L2-L3 and L3-L4, moderately decrea sed disc height at L4-L5, and mildly decreased disc height at L5-S1. The distal spinal cord signal intensity is normal. The conus medullaris is at L1. The following disc levels are specifically discussed: L1-L2: The disc is bulging. There is moderate bilateral facet joint osteoarthritis. There is mild rig ht and moderate left neural foraminal stenosis. There is mild central canal stenosis. L2-L3: The disc is bulging. There is moderate bilateral facet joint osteoarthritis. There is mild deandra ateral neural foraminal stenosis. There is mild central canal stenosis. L3-L4: The disc is bulging. There is mild bilateral facet joint osteoarthritis. There is moderate rig ht and mild left neural foraminal stenosis. There is mild central canal stenosis. L4-L5: The disc is bulging. There is severe bilateral facet joint osteoarthritis. There is mild bilat eral neural foraminal stenosis. There is mild central canal stenosis. L5-S1: The disc is bulging. There is severe bilateral facet joint osteoarthritis. There is mild bilat eral neural foraminal stenosis. There is mild central canal stenosis. IMPRESSION: 1. Moderate lumbar spondylosis, worsened from 08/18/2013. Reviewed, dictated and finalized at location A.
--- NOTE | ~2022-10-24 | US_ITS ---
EXAMINATION: US arterial ankle brachial ind DATE: 10/24/2022 08:50 INDICATION: Peripheral arterial occlusive disease TECHNIQUE: Segmental pressures and plethysmographic and Doppler waveforms of the brachial and lower e xtremity arteries were obtained. COMPARISON: None. FINDINGS: Right and left brachial artery pressures of 155 mm Hg and 136 mm Hg, respectively, are concordant (no rmal difference <= 30 mmHg). The right ankle-brachial index (BEAU) is 1.03 (normal >= 0.9-1.0). The right great toe-brachial index (TBI) is 0.48 (normal >= 0.65). Arterial Doppler waveforms are triphasic with brisk systolic upstroke s at both right posterior tibial and dorsalis pedis arteries. The left BEAU is 1.06. The left TBI is 0.50. Arterial Doppler waveforms are triphasic with brisk systo lic upstrokes at both left posterior tibial and dorsalis pedis arteries. IMPRESSION: 1. Mild arterial occlusive disease to the bilateral lower limbs with normal bilateral ABIs but mildly decreased bilateral TBIs Reviewed, dictated and finalized at location L. IMPRESSION: 1. Mild arterial occlusive disease to the bilateral lower limbs with normal deandra ateral ABIs but mildly decreased bilateral TBIs
== END 2022-10-24 07:00 | disposition home or self-care (01) ==
LOC: CHSIMG 07:01
PROVIDERS: PCP Internal Medicine; Visit Provider Internal Medicine
DX: I73.9 Peripheral vascular disease, unspecified (principal); M48.061 Spinal stenosis, lumbar region without neurogenic claudication; M54.50 Low back pain, unspecified; M43.06 Spondylolysis, lumbar region; Z96.651 Presence of right artificial knee joint
CPT/HCPCS: 72148; 73521; 73562; 93922

== ENCOUNTER 2022-11-14 09:37 | Outpatient (CLI) | payer MEDICARE, SELFPAY ==
[2022-11-14 10:44] LABS: Cholesterol 174 mg/dL (0-200); HDL Direct 61 mg/dL (40-60); LDL Cholesterol Calculated 98 mg/dL (<130); Triglycerides 74 mg/dL (0-150)
== END 2022-11-14 09:38 | disposition home or self-care (01) ==
LOC: CHSLAB 09:39
PROVIDERS: PCP Internal Medicine; Visit Provider Internal Medicine Cardiovascular Disease
DX: E78.5 Hyperlipidemia, unspecified (principal)
CPT/HCPCS: 36415; 80061

== ENCOUNTER 2022-12-19 12:26 | Outpatient (CLI) | payer MEDICARE, SELFPAY ==
--- NOTE | ~2022-12-19 | XR_ITS ---
EXAMINATION: XR lumbar spine 2-3V DATE: 12/19/2022 12:44 INDICATION: Back pain. TECHNIQUE: 3 views of lumbar spine were obtained. COMPARISON: Lumbar spine radiographs 08/05/2017 FINDINGS: There is 5 degrees levocurvature of lumbar spine. There is 6 mm retrolisthesis of L1 on L2 and 4 mm retrolisthesis of L2 on L3. There is 3 mm anterolisthesis of L4 on L5. There is a chronic co mpression fracture of T11 with 2/5 loss of height. There is moderately decreased disc height at L1-L2 and mildly decreased disc height at L3-L4 and L4-L5. There is multilevel facet joint osteoarthritis, severe in lower lumbar spine. There are surgical clips in the abdomen and pelvis. IMPRESSION: 1. Moderate lumbar spondylosis. Reviewed, dictated and finalized at location E.
== END 2022-12-19 12:27 | disposition home or self-care (01) ==
LOC: CHSIMG 12:28
PROVIDERS: PCP Internal Medicine; Visit Provider Internal Medicine
DX: M54.50 Low back pain, unspecified (principal); M43.06 Spondylolysis, lumbar region
CPT/HCPCS: 72100

== ENCOUNTER 2023-04-25 11:07 | Outpatient (CLI) | payer MEDICARE, SELFPAY ==
[2023-04-25 11:22] LABS: Basophils Absolute Auto 0.04 K/mm3 (0.00-0.10); Basophils Percent Auto 0.6 % (0.0-1.0); Eosinophils Absolute Auto 0.09 K/mm3 (0.02-0.50); Eosinophils Percent Auto 1.3 % (1.0-6.0); Hematocrit 43.4 % (35.0-42.0); Immature Granulocyte Absolute 0.03 K/mm3 (0.00-0.00); Immature Granulocyte Percent A 0.4 % (0.0-0.0); Lymphocytes Absolute Auto 2.02 K/mm3 (1.10-4.50); Mean Corpuscular HGB Conc 32.3 g/dL (32.0-36.0); Mean Corpuscular Hemoglobin 32.3 pg (27.0-31.0); Mean Corpuscular Volume 100.2 fL (78.0-102.0); Mean Platelet Volume 8.9 fl (9.2-11.8); Monocytes Absolute Auto 0.57 K/mm3 (0.10-0.90); Monocytes Percent Auto 8.2 % (2.0-11.0); Neutrophils Absolute Auto 4.2 K/mm3 (1.7-7.2); Neutrophils Percent Auto 60.5 % (50.0-70.0); Platelet Count Result 297 K/mm3 (150-420); Red Blood Count 4.33 M/mm3 (4.20-5.40); Red Cell Distribution Width 12.3 % (11.6-14.4)
[2023-04-25 12:24] LABS: Alanine Aminotransferase 19 U/L (14-59); Albumin Level 3.6 g/dL (3.4-5.0); Alkaline Phosphatase 76 U/L (46-116); Anion Gap 9 mmol/L (8-16); Aspartate Amino Transferase 34 U/L (15-37); Bilirubin,Total 0.5 mg/dL (0.00-1.00); Blood Urea Nitrogen 21 mg/dL (7-18); CRP < 0.5 mg/dL (0.0-0.9); Calcium 9.4 mg/dL (8.5-10.1); Carbon Dioxide 30 mmol/L (21-32); Chloride 104 mmol/L (98-108); Cholesterol 205 mg/dL (0-200); Estimated Glomerular Filt Rate 50; Free T3 2.33 pg/mL (2.18-3.98); Free T4 Free Thyroxine 0.85 ng/dL (0.76-1.46); Glucose 90 mg/dL (70-99); HDL Direct 68 mg/dL (40-60); LDL Cholesterol Calculated 118 mg/dL (<130); Osmolality Calculated 299 mOsm/kg (285-295); Potassium 4.4 mmol/L (3.5-5.1); Sodium 143 mmol/L (136-145); Thyroid Stimulating Hormone 1.29 uIU/mL (0.36-3.74); Total Protein 6.7 g/dL (6.4-8.2); Triglycerides 93 mg/dL (0-150)
== END 2023-04-25 11:08 | disposition home or self-care (01) ==
PROVIDERS: PCP Internal Medicine; Visit Provider Internal Medicine
DX: R63.4 Abnormal weight loss (principal); J18.9 Pneumonia, unspecified organism; I10 Essential (primary) hypertension; E78.5 Hyperlipidemia, unspecified
CPT/HCPCS: 36415; 80053; 80061; 84439; 84443; 84481; 85025; 86140

== ENCOUNTER 2023-05-26 14:59 | Outpatient (CLI) | payer MEDICARE, SELFPAY ==
--- NOTE | 2023-05-26 15:05 | ECHO_ITS ---
Patient Info Name: Namita Triveid Age: 78 years : 1945 Gender: Female Ht: 65 in Wt: 192 lbs BSA: 2.03 m2 HR: 75 bpm BP: 170 / 102 mmHg Heart Rhythm: Sinus Rhythm Technical Quality: Good Exam Date: 05/26/2023 2:55 PM Exam Location: Echo Lab Patient Status: Outpatient Admit Date: 05/26/2023 Staff Ordering Physician: Sammy Allred DO Supervisor Detasseling Crew: Isidoro Judge RDCS Attending Provider: Sammy Allred DO Referring Physician: Chalino MARROQUIN; Exam Type: CA echo doppler color flow Study Info Indications - nONRHUMATIC AORTIC VALVE STENOSIS Complete two-dimensional, color flow and Doppler transthoracic echocardiogram is performed. Summary 1. Complete two-dimensional, color flow and Doppler transthoracic echocardiogram is performed. 2. Left ventricular chamber dimension is normal. 3. Left ventricular systolic function is normal, estimated at 60-65%. 4. The left ventricular diastolic function is abnormal. 5. E/e' 16 is elevated. 6. There is moderate aortic valve stenosis based on a peak velocity of 210 cm/s, mean gradient of 11 mmHg, and aortic valve area of 1.2 cm2. 7. There is severe aortic valve sclerosis. 8. There is mild aortic valve regurgitation. 9. The mitral valve has moderately calcified annulus. 10. There is mild mitral valve regurgitation. 11. There is mild tricuspid valve regurgitation. 12. No pulmonary hypertension, estimated pulmonary arterial systolic pressure is 30 mmHg. Left Ventricle E/e' 16 is elevated. Left ventricular chamber dimension is normal. Left ventricular systolic function is normal, estimated at 60-65%. The left ventricular diastolic function is abnormal. Right Ventricle Right ventricular systolic function is normal and with normal TAPSE 2.3 cm. Right ventricular chamber dimension is normal. Left Atria Left atrial chamber dimension is normal. Right Atria Right atrial chamber dimension is normal. Aortic Valve The aortic valve is not well visualized. Cannot determine number of aortic valve leaflets. There is moderate aortic valve stenosis based on a peak velocity of 210 cm/s, mean gradient of 11 mmHg, and aortic valve area of 1.2 cm2. There is severe aortic valve sclerosis. There is mild aortic valve regurgitation. Pulmonic Valve There is no pulmonic regurgitation. Mitral Valve The mitral valve has moderately calcified annulus. There is no mitral valve stenosis. There is mild mitral valve regurgitation. Tricuspid Valve There is mild tricuspid valve regurgitation. No pulmonary hypertension, estimated pulmonary arterial systolic pressure is 30 mmHg. Pericardium/Pleural There is no pericardial effusion. Inferior Vena Cava Normal inferior vena cava with >50% collapse upon inspiration consistent with normal right atrial pressure, 5 mmHg. Aorta The aortic root size at the sinus of Valsalva is normal. Left Ventricular Outflow Tract Name Value Normal LVOT 2D LVOT Diameter 1.7 cm LVOT Doppler LVOT Peak Velocity 116 cm/s LVOT Peak Gradient 5 mmHg LVOT Mean Gradient 2 mmHg LVOT VTI 26 cm LVOT VTI/AV VTI Ratio 0.5
== END 2023-05-26 15:00 | disposition home or self-care (01) ==
PROVIDERS: PCP Internal Medicine; Visit Provider Internal Medicine Cardiovascular Disease
DX: I08.1 Rheumatic disorders of both mitral and tricuspid valves (principal)
CPT/HCPCS: 93306

== ENCOUNTER 2023-11-05 10:48 | Outpatient (CLI) | payer MEDICARE, SELFPAY ==
[2023-11-05 11:02] LABS: Basophils Absolute Auto 0.03 K/mm3 (0.00-0.10); Basophils Percent Auto 0.4 % (0.0-1.0); Eosinophils Absolute Auto 0.07 K/mm3 (0.02-0.50); Hematocrit 42.7 % (35.0-42.0); Hemoglobin 13.8 g/dL (11.7-13.8); Immature Granulocyte Absolute 0.02 K/mm3 (0.00-0.00); Immature Granulocyte Percent A 0.3 % (0.0-0.0); Lymphocytes Absolute Auto 2.02 K/mm3 (1.10-4.50); Lymphocytes Percent Auto 29.1 % (18.0-42.0); Mean Corpuscular HGB Conc 32.3 g/dL (32-36); Mean Corpuscular Hemoglobin 33.3 pg (27.0-31.0); Mean Corpuscular Volume 103.1 fL (78.0-102.0); Mean Platelet Volume 9.5 fl (9.2-11.8); Monocytes Percent Auto 8.7 % (2.0-11.0); Neutrophils Absolute Auto 4.19 K/mm3 (1.70-7.20); Neutrophils Percent Auto 60.5 % (50.0-70.0); Platelet Count Result 204 K/mm3 (150-420); Red Blood Count 4.14 M/mm3 (4.20-5.40); Red Cell Distribution Width 12.2 % (11.6-14.4); White Blood Count 6.9 K/mm3 (4.8-10.8)
[2023-11-05 11:11] LABS: Appearance Urine Clear (Clear); Bilirubin Urine 1+ (Negative); Blood Urine Negative (Negative); Glucose Urine UA Trace (Negative); Ketones Urine 1+ (Negative); Leukocyte Esterase Ur Trace LEU/UL (Negative); Nitrate Urine Negative (Negative); Protein Urine Trace (Negative); Specific Grav Ur >= 1.030 (1.010-1.020); pH Urine 5.5 (5.0-8.0)
[2023-11-05 11:38] LABS: Add Urine Microscopic? YES; Bacteria Urine 1+ /hpf; Color Urine Dark Orange (Yellow); RBC Urine None seen /hpf (0-2); Squamous Epithelial Cell Urine Rare /hpf (Few)
[2023-11-05 12:18] LABS: Alanine Aminotransferase 19 U/L (14-59); Albumin Level 3.8 g/dL (3.4-5.0); Alkaline Phosphatase 72 U/L (46-116); Anion Gap 10 mmol/L (4-12); Aspartate Amino Transferase 29 U/L (15-37); Bilirubin,Total 0.5 mg/dL (0.00-1.00); Blood Urea Nitrogen 22 mg/dL (7-18); Calcium 9.1 mg/dL (8.5-10.1); Carbon Dioxide 27 mmol/L (21-32); Chloride 102 mmol/L (98-108); Cholesterol 197 mg/dL (0-200); Estimated Glomerular Filt Rate 47; Glucose 99 mg/dL (70-99); HDL Direct 78 mg/dL (40-60); LDL Cholesterol Calculated 104 mg/dL (<130); Osmolality Calculated 291 mOsm/kg (285-295); Potassium 4.2 mmol/L (3.5-5.1); Sodium 139 mmol/L (136-145); Total Protein 6.6 g/dL (6.4-8.2); Triglycerides 74 mg/dL (0-150)
== END 2023-11-05 10:49 | disposition home or self-care (01) ==
LOC: CHSLAB 10:50
PROVIDERS: PCP Internal Medicine; Visit Provider Internal Medicine
DX: I10 Essential (primary) hypertension (principal); E78.5 Hyperlipidemia, unspecified
CPT/HCPCS: 36415; 80053; 80061; 81001; 85025

== ENCOUNTER 2024-02-05 10:54 | Outpatient (CLI) | payer MEDICARE, SELFPAY ==
[2024-02-05 11:07] LABS: Basophils Absolute Auto 0.03 K/mm3 (0.00-0.10); Basophils Percent Auto 0.4 % (0.0-1.0); Eosinophils Percent Auto 1.4 % (1.0-6.0); Hemoglobin 13.8 g/dL (11.7-13.8); Immature Granulocyte Absolute 0.02 K/mm3 (0.00-0.00); Immature Granulocyte Percent A 0.3 % (0.0-0.0); Lymphocytes Absolute Auto 1.72 K/mm3 (1.10-4.50); Lymphocytes Percent Auto 23.2 % (18.0-42.0); Mean Corpuscular HGB Conc 32.9 g/dL (32-36); Mean Corpuscular Hemoglobin 33.3 pg (27.0-31.0); Mean Corpuscular Volume 101.2 fL (78.0-102.0); Monocytes Absolute Auto 0.63 K/mm3 (0.10-0.90); Monocytes Percent Auto 8.5 % (2.0-11.0); Neutrophils Percent Auto 66.2 % (50.0-70.0); Platelet Count Result 219 K/mm3 (150-420); Red Blood Count 4.15 M/mm3 (4.20-5.40); Red Cell Distribution Width 12.2 % (11.6-14.4); White Blood Count 7.4 K/mm3 (4.8-10.8)
[2024-02-05 11:52] LABS: Alanine Aminotransferase 15 U/L (14-59); Albumin Level 3.7 g/dL (3.4-5.0); Alkaline Phosphatase 78 U/L (46-116); Anion Gap 7 mmol/L (4-12); Aspartate Amino Transferase 26 U/L (15-37); Bilirubin,Total 0.5 mg/dL (0.00-1.00); Blood Urea Nitrogen 22 mg/dL (7-18); Calcium 9.5 mg/dL (8.5-10.1); Carbon Dioxide 31 mmol/L (21-32); Chloride 103 mmol/L (98-108); Estimated Glomerular Filt Rate 47; Glucose 79 mg/dL (70-99); Osmolality Calculated 294 mOsm/kg (285-295); Potassium 4.1 mmol/L (3.5-5.1); Sodium 141 mmol/L (136-145); Total Protein 6.7 g/dL (6.4-8.2)
[2024-02-05 11:55] LABS: CRP < 0.5 mg/dL (0.0-0.9)
== END 2024-02-05 10:55 | disposition home or self-care (01) ==
PROVIDERS: PCP Internal Medicine; Visit Provider Internal Medicine
DX: I10 Essential (primary) hypertension (principal); R07.9 Chest pain, unspecified
CPT/HCPCS: 36415; 80053; 85025; 86140

== ENCOUNTER 2024-03-12 10:22 | Outpatient (CLI) | payer MEDICARE, SELFPAY ==
--- NOTE | ~2024-03-12 | XR_ITS ---
XR sacrum coccyx min 2V Ordering provider: Rodney Wallace, TANA History: . Sensory urge incontinence - RECENT FALL . Comparison: None. FINDINGS: BONES: Possibility of lucency over the first coccygeal segment is not excluded as seen in the lateral view. Otherwise, No acute fracture or dislocation. JOINTS: The sacroiliac joint spaces are normal. Pubic symphysitis. Bilateral hip mild to moderate osteoarthritic changes. Degenerative changes of the spine. SOFT TISSUES: Normal. Right stimulator device is noted. Postoperative changes are seen in the area of the pelvis and mid ab domen. IMPRESSION: No definite acute osseous abnormality sacrum. Possibility of lucency over the first coccygeal segment is not excluded CT evaluation advised. Reviewed, dictated and finalized at location A. S [employer]IST IMPRESSION: No definite acute osseous abnormality sacrum. Possibility of lucency over the f irst coccygeal segment is not excluded CT evaluation advised.
== END 2024-03-12 10:23 | disposition home or self-care (01) ==
PROVIDERS: PCP Internal Medicine; Visit Provider Physician Assistant Medical
DX: N39.41 Urge incontinence (principal)
CPT/HCPCS: 72220

== ENCOUNTER 2024-06-15 14:41 | Outpatient (CLI) | payer MEDICARE, SELFPAY ==
--- NOTE | 2024-06-15 14:45 | ECHO_ITS ---
Patient Info Name: Namita Trivedi Age: 79 years : 1945 Gender: Female Ht: 65 in Wt: 199 lbs BSA: 2.07 m2 HR: 79 bpm BP: 158 / 102 mmHg Heart Rhythm: Sinus Rhythm Technical Quality: Fair Exam Date: 06/15/2024 2:23 PM Exam Location: Echo Lab Patient Status: Outpatient Admit Date: 06/15/2024 Staff Ordering Physician: Sammy Allred DO Lead Java Programmer: Miriam Pulliam RDCS Attending Provider: Sammy Allred DO Referring Physician: Chalino MARROQUIN; Exam Type: CA echo doppler color flow Study Info Indications - Nonrheumatic aortic valve stenosis Complete two-dimensional, color flow and Doppler transthoracic echocardiogram is performed. Summary 1. Complete two-dimensional, color flow and Doppler transthoracic echocardiogram is performed. 2. Left ventricular chamber dimension is normal. 3. Left ventricular systolic function is normal, estimated at 60-65%. 4. The left ventricular diastolic function is abnormal. 5. E/e' 12 is mildly elevated. 6. There is severe aortic valve sclerosis. 7. There is mild to moderate aortic valve stenosis with a peak velocity of 253 cm/s, mean gradient of 14 mmHg, and aortic valve area of 1.5 cm2. 8. There is mild aortic valve regurgitation. 9. The mitral valve has moderately calcified annulus. 10. There is trace mitral valve regurgitation. 11. There is trace tricuspid valve regurgitation. 12. Mild pulmonary hypertension, estimated pulmonary arterial systolic pressure is 47 mmHg. Left Ventricle E/e' 12 is mildly elevated. Left ventricular chamber dimension is normal. Left ventricular systolic function is normal, estimated at 60-65%. The left ventricular diastolic function is abnormal. Right Ventricle Right ventricular systolic function is normal and with normal TAPSE 2.0 cm. Right ventricular chamber dimension is normal. Left Atria Left atrial chamber dimension is normal. Right Atria Right atrial chamber dimension is normal. Aortic Valve The aortic valve is trileaflet. There is severe aortic valve sclerosis. There is mild to moderate aortic valve stenosis with a peak velocity of 253 cm/s, mean gradient of 14 mmHg, and aortic valve area of 1.5 cm2. There is mild aortic valve regurgitation. Pulmonic Valve There is no pulmonic regurgitation. Mitral Valve The mitral valve has moderately calcified annulus. There is no mitral valve stenosis. There is trace mitral valve regurgitation. Tricuspid Valve There is trace tricuspid valve regurgitation. Mild pulmonary hypertension, estimated pulmonary arterial systolic pressure is 47 mmHg. Pericardium/Pleural There is no pericardial effusion. Inferior Vena Cava Normal inferior vena cava with >50% collapse upon inspiration consistent with normal right atrial pressure, 5 mmHg. Aorta The aortic root size at the sinus of Valsalva is normal. Left Ventricular Outflow Tract Name Value Normal LVOT 2D LVOT Diameter 2.0 cm LVOT Doppler LVOT Peak Velocity 140 cm/s LVOT Peak Gradient 0 mmHg LVOT Mean Gradient 0 mmHg LVOT VTI 28 cm LVOT VTI/AV VTI Ratio 0.5 LVOT Stroke Volume 85 ml Pulmonic Valve Name Value Normal RVOT Doppler RVOT Peak Gradient 2 mmHg PV Doppler PV Peak Velocity 104 cm/s PV Peak Gradient 4 mmHg Mitral Valve Name Value Normal MV Doppler MV Decel Bent 499 cm/s2 MV PHT 65 ms MV Area (PHT) 3.4 cm2 4.0-5.0 MV Diastolic Function MV E Peak Velocity 112 cm/s MV A Peak Velocity 100 cm/s MV E/A 1.1 MV Decel Time 224 ms Tricuspid Valve Name Value Normal TV Regurgitation Doppler TR Peak Velocity 325 cm/s TR Peak Gradient 42 mmHg Estimated PAP/RSVP RA Pressure 5 mmHg <=5 PA Systolic Pressure 47 mmHg <36 RV Systolic Pressure 47 mmHg <36 Aortic Valve Name Value Normal AV Doppler AV Peak Velocity 253 cm/s AV Peak Gradient 26 mmHg AV Mean Gradient 14 mmHg AV VTI 56 cm AV Area (Cont Eq VTI) 1.5 cm2 >=3.0 AV Area (Cont Eq Dimitri) 1.6 cm2 AV V1/V2 Ratio 0.55 AV Regurgitation 2D LVOT Area 3.0 cm2 AV Regurgitation Doppler AR Decel Time 1,676 ms AR Decel Bent 278 cm/s2 AR PHT 486 ms Ventricles Name Value Normal LV Dimensions 2D/MM IVS Diastolic Thickness (2D) 1.1 cm 0.6-1.0 LVID Diastole (2D) 4.5 cm 3.8-5.2 LVIW Diastolic Thickness (2D) 0.9 cm 0.6-0.9 LVID Systole (2D) 3.1 cm 2.2-3.5 LVOT Diameter 2.0 cm LV Mass (2D Cubed) 151.08 g 67.00-162.00 LV Mass Index (2D Cubed) 73 g/m2 43-95 Relative Wall Thickness (2D) 0.41 LV Fractional Shortening/Ejection Fraction 2D/MM LV Fractional Shortening (2D) 31 % 27-45 LV EF (2D Teicholz) 59 % 54-74 LV Diastolic Volume (4C MOD) 138 ml LV EF (4C MOD) 70 % LV Diastolic Volume (2C MOD) 143 ml LV EF (2C MOD) 64 % LV Diastolic Volume (BP MOD) 145 ml 46-106 LV Diastolic Volume Index (BP MOD) 70 ml/m2 29-61 LV Systolic Volume (BP MOD) 47 ml 14-42 LV Systolic Volume Index (BP MOD) 23 ml/m2 8-24 LV EF (BP MOD) 68 % 54-74 LV Diastolic Length (4C) 8.1 cm LV Systolic Length (4C) 7.1 cm LV Stroke Volume (4C MOD) 96 ml Atria Name Value Normal LA Dimensions LA Volume (4C A-L) 42 ml LA Volume (BP A-L) 53 ml RA Dimensions RA Area (4C) 13.5 cm2 <=18.0 Report Signatures
--- OUTSIDE RECORDS SUMMARY | 2024-06-15 16:11 | XMS_ITS | Clinical Summary ---
Author Organization [facility] Address [address] [place] [address] Phone Care Team Providers Care Grievance Coordinator Name Role Phone DOMENIC PERRY MD Primary Care Provider [phone] Reason for Visit and Chief Complaint The Chief Complaint is: Follow up after left SI injection 05/22/2023 ~50 % - 60 ongoing Problems Includes: Problems addressed during this encounter and other active Problems Current Visit Onset Date Resolved Date Provider Conditio n Status Chronic Kidney Disease Stage 2 Unknown AFSANEH Banda DARRIN SPRAYER INSECTICIDE-FPA, EARLY CHILDHOOD ASSOCIATE TEACHER-BC Active Last Documented On 3 2:12PM ; [facility] Past Visits Onset Date Resolved Date Provider Condition Status Depression Unknown AFSANEH G DARRIN SPRAYER INSECTICIDE-FPA, EARLY CHILDHOOD ASSOCIATE TEACHER-BC Active Last Documented On 3 2:10PM ; [facility] Anxiety Disorder Nos Unknown AFSANEH G DARRIN SPRAYER INSECTICIDE-FPA, EARLY CHILDHOOD ASSOCIATE TEACHER-BC Active Last Documented On 3 2:10PM ; [facility] Osteopenia Unknown AFSANEH G DARRIN SPRAYER INSECTICIDE-FPA, EARLY CHILDHOOD ASSOCIATE TEACHER-BC Active Last Documented On 3 2:12PM ; [facility] Hyperlipidemia Unknown AFSANEH G DARRIN SPRAYER INSECTICIDE-F PA, EARLY CHILDHOOD ASSOCIATE TEACHER-BC Active Last Documented On 3 2:12PM ; [facility] Labile Hypertension Unknown AFSANEH G DARRIN A PRN-FPA, EARLY CHILDHOOD ASSOCIATE TEACHER-BC Active Last Documented On 3 2:11PM ; [facility] Iron Deficiency Anemia Unknown AFSANEH G KUL P SPRAYER INSECTICIDE-FPA, EARLY CHILDHOOD ASSOCIATE TEACHER-BC Active Last Documented On 3 2:11PM ; [facility] Myalgia and Myositis Unknown AFSANEH CLIFFORD SPRAYER INSECTICIDE-FPA, EARLY CHILDHOOD ASSOCIATE TEACHER-BC Active Last Documented On 3 2:11PM ; [facility] Obesity Unknown AFSANEH CLIFFORD SPRAYER INSECTICIDE-FPA, EARLY CHILDHOOD ASSOCIATE TEACHER-BC Active Last Documented On 3 2:12PM ; [facility] Osteoarthritis Unknown AFSANEH MARQUEZL P SPRAYER INSECTICIDE-FPA, EARLY CHILDHOOD ASSOCIATE TEACHER-BC Active Last Documented On 3 2:11PM ; [facility] Note: multiple joints Plan of Treatment Patient was seen today for 4 chronic unstable conditions of the cervical, lumbosacral spine, and central nervous system.Without treatment patient is at risk for significant functional limitations resulting in diminished quality of life and impaired age appropriate activities of daily living. Multiple documents have been reviewed in combination with today's evaluation including imaging studies, outside provider notes, laboratory data, patient self-report questionnaires, and [place] prescription monitoring database entries. Significant social barriers exist to compliance resulting in limited prognosis. Decision to proceed with interventional therapies was made at the time of today's visit. - Last Documented On 06/17/2023 3:53PM ; [facility] Education and Decision Aids were provided during visit for: Pill Count: Tramadol Dr. Gerard raygoza Last Documented On 4 2:43PM ; [facility] Assessments Includes: Assessments from this encounter Findings - [N18.2 - Chronic kidney disease, stage 2 (mild)] Chronic kidney disease, stage 2 - Last Documented On 06/17/2023 3:53PM ; [facility] - [M46.1 - Sacroiliitis, not elsewhere classified] Sacroiliitis - Last Documented On 06/17/2023 3:53PM ; [facility] - [M47.892 - Other spondylosis, cervical region] Cervical spondylosis - Last Documented On 06/17/2023 3:53PM ; [facility] - [M54.50 - Low back pain, unspecified] Low back pain - Last Documented On 06/17/2023 3:53PM ; [facility] - [M48.061 - Spinal stenosis, lumbar region without neurogenic claudication] Lumbar stenosis - Last Documented On 06/17/2023 3:53PM ; [facility] - [M54.16 - Radiculopathy, lumbar region] Lumbar radiculopathy - Last Documented On 06/17/2023 3:53PM ; [facility] - [M79.7 - Fibromyalgia] Fibromyalgia - Last Documented On 06/17/2023 3:53PM ; [facility] - [G89.4 - Chronic pain syndrome] Chronic pain syndrome - Last Documented On 06/17/2023 3:53PM ; [facility] Instructions Includes: Instructions from this encounter Education and Decision Aids were provided during visit for: Pill Count: Tramadol Dr. Gerard raygoza Last Documented On 4 2:43PM ; [facility] Medical Equipment - Implanted Devices Includes: Current Devices No Medical Equipment Recorded Medications Includes: Medications discussed during this encounter and other current Medications Current Medications (continue as prescribed) Methocarbamol 500 MG Oral Tablet 08/18/2023 Provider: LIZABETH BAPTISTE Diagnosis: Other spondylosi s, cervical region One tablet three times a day as needed for neck or low back stiffness Last Documented On 4 10:09AM By AFSANEH BARONE ; [facility] Prevagen 10 MG Oral Capsule 08/18/2023 Provider: Diagnosis: Last Documented On 4 10:09AM By AFSANEH BARONE ; [facility] DULoxetine HCl 60 MG Oral Ca psule Delayed Release Particles 08/01/2023 Provider: LIZABETH BAPTISTE Diagnosis: 1 CAPSULE DAILY AT BEDTIME Last Documented On 4 10:09AM By AFSANEH BARONE ; [facility] Aspirin EC Low Strength 81 MG Oral Tablet Delayed Rele ase 11/26/2022 Provider: Diagnosis: Last Documented On 3 3:27PM By AFSANEH BARONE ; [facility] traMADol HCl 50 MG Oral Tablet 11/26/2022 Provider: Diagnosis: one tablet a day. Last Documented On 3 3:27PM By AFSANEH BARONE ; [facility] Montelukast Sodium 10 MG Oral Tablet 11/26/2022 Prov ider: Diagnosis: Last Documented On 3 3:27PM By AFSANEH BARONE ; [facility] Verapamil HCl ER 240 MG Oral Capsule Extended Re lease 24 Hour 11/26/2022 Provider: Diagnosis: Last Documented On 3 3:27PM By AFSANEH BARONE ; [facility] Ativan 0.5 MG Oral Tablet 11/26/2022 Provider: Diagnosis: 2 tablets at bedtime. Last Documented On 3 3:27PM By AFSANEH BARONE ; [facility] Bariatric Multivitamins/Iron Oral Capsule 11/26/2022 Provider: Diagnosis: Last Documented On 3 3:27PM By AFSANEH BARONE ; [facility] Pravastatin Sodium 10 MG Oral Tablet 11/26/2022 Prov ider: Diagnosis: Last Documented On 3 3:27PM By AFSANEH BARONE ; [facility] Tylenol Extra Strength 500 MG Oral Tablet 11/26/2022 Provider: Diagnosis: Last Documented On 3 3:27PM By AFSANEH BARONE ; [facility] Alendronate Sodium 70 MG Oral Tablet 11/26/2022 Prov ider: Diagnosis: 1 weekly. Last Documented On 3 3:27PM By AFSANEH BARONE ; [facility] Carvedilol 12.5 MG Oral Tablet 11/26/2022 Provider: Diagnosis: Last Documented On 3 3:27PM By AFSANEH BARONE ; [facility] Past Medications on file Nystatin [id number] UNIT/GM External Cream 08/18/2023 - 09/17/2023 Provider: LIZABETH BAPTISTE Diagnosis: Candidiasis, unspecified apply to buttocks 2 times daily Last Documented On 4 10:21AM By AFSANEH BARONE ; [facility] Fluconazole 100 MG Oral Tablet 08/18/2023 - 08/28/2023 Provider: LIZABETH BAPTISTE Diagnosis: Candidiasis, unspecified take 1 tablet today and then repeat in 1 week Last Documented On 10:21AM By AFSANEH BARNESP- ; [facility] Medications Administered Includes: Administered Medications from this encounter No Administered Medications Recorded Vital Signs Includes: Vital Signs from this encounter Vital Name 06/17/2023 03:05P Blood Pressure Sitting R 120/74 BP Cuff Size Regular Pulse Rate-Sitting (bpm) 96 Temp-Axillary (F) 95.9 Height (in) 65 Weight (lb) 194 Body Mass Index 32.3 Body Surface Area 2 Pain Level 3 Oxygen Saturation (%) 98 Last Documented: On 06/17/2023 3:10PM ; [facility] Results Includes: Results discussed during this encounter No Results Recorded For Specified Dates History of Present Illness Includes: History of Present Illness from this encounter HPI PHQ-9 Score: 8 Date:05/09/2023PI Score: Date:Oswestry Score: 44% Date: 05/09/23SOAPP-R Score: 19 Date: 05/09/23Pain Location: left lumbarQuality: thorbbingRadiation: into left leg. Severity: Timing: constant. Associated Sx: Aggravating Factors:being up on feet, shopping, walking, bending. Alleviating Factors:Laying down. Past Tx: physical therapy *2, injections, 12/31/22 L4-5 TFESI resolved radicular symptoms 90% back pain 50%, L Si joint injection 01/29/23 65% better, PT Mar 25-May 09 cervical spine [not helpful] ANA BASS is a 78 year old female. - Allergy list reviewed - Problem list reviewed - Medication reconciliation performed - Medication list reviewed - Prescription Drug Monitoring Program website checked. 03/05/2023 - How much of the medication are you taking a day? One per day - Last dose of medication? Last night - Pain comes/goes - Primary pain location Left lower back and sometimes down leg - Primary pain duration Some constant until I go sit and rest - Secondary pain duration The neck pain when I tilt head back or turn quickly - Secondary pain location My back and neck - Pain is burning - Pain is throbbing - Pain is dull, aching - Pain is shooting - Pain is described as tingling - Pain aggravated going up stairs - Pain aggravated standing - Pain aggravated by walking - Pain aggravated by working - Pain radiating to both shoulders - Neck pain radiating to both sides - Pain radiates in right eye - Pain radiates in both hands - Pain radiating in the left thigh - Vertigo - Last drug screen appropriate 11/26/2022 Discussion: FU after L SI joint injection which provided her with at least 60% relief of her low back pain. We reviewed her MRI of her cervical spine. She would like to hold off on any interventional procedure at this time. States pain is tolerable. She continues her HEP. She is happy with the increase in the Duloxetine stating it has helped with her depression/anxiety and pain. PRIOR VISIT: FU after doing PT for axial neck pain. She just finished 6 weeks of therapy. PT has not been helpful. She continues a home exercise program. Pain is mostly on the right side but she does have some left sided pain as well. We will obtain MRI and consider ablation depending on MRI results. Her low back pain on the left side is really hurting her again. She feels like her last SI joint injection started to wear off a few weeks ago. She did grocery shopping the other day and vacuumed and pain is severe again. Previous L SI joint injection was 65% helpful for her and this was done 3 1/2 months ago. She did PT for her low back pain last for 6 weeks in summer and continues her home exercise program. She has done PT several times for her low back pain. It has not helped her at all. I would recommend repeating the SI joint injection. PRIOR VISIT: Here for FU after L SI joint injection. She feels like pain is much better, upwards of 70% and only gets to about a 3/10 now. It is tolerable at this time. She continues to benefit from the epidural having little to no radicular symptoms. She is pleased with her results. In regards to her neck pain I would recommend PT. She will start in PT and then I will see her back in a few months. PRIOR VISIT: FU after L4-5 TFESI. She has no right sided back pain and little to no radicular symptoms now in the left leg. Her remaining pain is in the left low back/buttock area and is axial in nature. She has a tender L SI joint with positive provocative maneuvers. She has had conservative tx of her low back pain for over 6 months including PT and continues a home exercise program, rest, OTC meds, and avoidance of aggravating activity. I would recommend L SI joint injection at this time. She also complains of neck pain and states she is full of arthritis . I will request her cervical spine imaging and we can discuss further when low back symptoms have been fully treated. FIRST VISIT 11/26/22: Patient referred by her primary care Dr. Perry for low back pain. The patient states she has experienced low back pain for 4 to 5 years. It seems to have worsened in the last six months to one year. She has done physical therapy 3 to 4 times over the years. Her last physical therapy session for her low back pain was in the last six months. She continues a home exercise program. This has been minimally beneficial. She has used a TENS unit at therapy before and this was helpful for her. Her low back pain radiates down the left leg not past the knee in a L4 dermatomal pattern. She gets tingling in the thigh at times. Denies numbness. Denies any motor weakness. 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 If she has to do grocery shopping she states she needs a full day to rest because her pain increases so much. If she sits or lays down this lessens her pain. She takes Tramadol and Tylenol p.m. at night to sleep. She utilizes Tylenol sometimes throughout the day. She is currently on Duloxetine 30 mg, we may discuss increasing to 60mg. She is not on NSAIDs due to history of chronic kidney disease. Imaging was reviewed. We discussed transforaminal epidural steroid injection. Although she is reluctant and nervous she is agreeable. I encouraged her to take two Tylenol and one of her Lorazepam that she is already prescribed one hour before the procedure to help with her nerves. 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 Imaging: All relevant imaging available was personally reviewed with the patient today with the following tests and results noted: MRI Lumbar Spine 10/24/22 Spondylosis most severe at L4-5 and L5-S1 with mild central canal stenosis throughout lumbar spine. 4mm Retrolisthesis of L1 on L2, 3 mm of L2 on L3, and 3 mm anterolisthesis of L4 on L5. Multilevel DDD and bulging discs X-ray L Knee 10/24/22 Minimal degenerative spurring of patella. Probable subtle chondrocalcinosis X-ray R Knee 10/24/[address]. Unremarkable soft tissues X-ray Hip bilateral w/o pelvis 10/24/22 Mild degenerative changes bilaterally L>R CT cervical Spine01/11/22 Mild spondylosis. DDD MRI Cervical 05/20/23 Minimal broad based disc bulge and moderate to severe facet hypertrophy at C5-6 with moderate bilateral neural foraminal stenosis. Moderate facet hypertrophy with minimal disc bulge at C4-5 with mild bilateral neural foraminal stenosis. No central canal stenosis. Social History Description Last Updated 11/26/2022 Last Documented On 4 2:42PM ; [facility] Tobacco non-user 11/26/2022 Last Documented On 4 2:42PM ; [facility] Difficulty walking 11/26/2022 Last Documented On 4 2:42PM ; [facility] No consumption of alcohol 11/26/2022 Last Documented On 4 2:42PM ; [facility] Not using drugs 11/26/2022 Last Documented On 4 2:42PM ; [facility] Smoking Status Unknown Procedures and Surgical History Includes: Procedures from this encounter Procedures Code Diagnosis Performing Provider Service L ocation Service Date use of tobacco assessment performed 1000F Last Documented On 4 2:42PM ; [facility] patient screened for future fall risk: documentation of any fall with injury in past year 1100F Last Documented On 4 2:42PM ; [facility] review of medications documented 1160F Last Documented On 4 2:42PM ; [facility] screening for adult depression: impressi on and score five Last Documented On 4 2:42PM ; [facility] standardized depression screening: posit tena for symptoms Last Documented On 4 2:42PM ; [facility] Reviewed & agreed to staff entries. Last Documented On 4 2:42PM ; [facility] Clinical summary provided to patient Last Documented On 4 2:42PM ; [facility] SOAPP-R: total score 27 Last Documented On 4 2:42PM ; [facility] Surgical History Last Updated History of cholecystectomy 11/26/2022 Last Documented On 4 2:42PM ; [facility] History of hysterectomy 11/26/2022 Last Documented On 4 2:42PM ; [facility] History of Primary Knee Arthroplasty Rig ht 11/26/2022 Last Documented On 4 2:42PM ; [facility] Prior surgery Gatric Lap Band 11/26/2022 Last Documented On 4 2:42PM ; [facility] No Pacemaker 11/26/2022 Last Documented On 4 2:42PM ; [facility] Medical History Includes: Medical History addressed during this encounter Description Last Updated Has had no fall in the last 12 months. 0 08/18/2023 Last Documented On 4 2:42PM ; [facility] Has a fear of falling. 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 Last Documented On 4 2:42PM ; [facility] CT/MRI Back legs 11/26/2022 Last Documented On 4 2:42PM ; [facility] Exposure to a lot of bright sunlight 02/2023 Last Documented On 4 2:42PM ; [facility] Moderate to severe pain 11/26/2022 Last Documented On 4 2:42PM ; [facility] No Pain Pump 11/26/2022 Last Documented On 4 2:42PM ; [facility] No Spinal cord stimulator 11/26/2022 Last Documented On 4 2:42PM ; [facility] Physical therapy 11/26/2022 Last Documented On 4 2:42PM ; [facility] Please list all illnesses/co nditions you have been diagnosed with: Colon cancer. depression anxietytia in right eyearthritis bladder problems 11/26/2022 Last Documented On 4 2:42PM ; [facility] Please list all surgeries: Sleeve weight loss. 2011colon cancer. 1988-11/26/2022 Last Documented On 4 2:42PM ; [facility] Treatment with TENS unit 11/26/2022 Last Documented On 4 2:42PM ; [facility] Ultrasound Legs 11/26/2022 Last Documented On 4 2:42PM ; [facility] X-rays Legs. hips 11/26/2022 Last Documented On 4 2:42PM ; [facility] Family History Includes: Family History addressed during this encounter Description Last Updated Family history of diabetes mellitus Sist er 11/26/2022 Last Documented On 4 2:42PM ; [facility] Father Dementia 11/26/2022 Last Documented On 4 2:42PM ; [facility] Mother CVA ~OA ~RA 11/26/2022 Last Documented On 4 2:42PM ; [facility] Family history of Arthritis 11/26/2022 Last Documented On 4 2:42PM ; [facility] Maternal history of Arthritis 11/26/2022 Last Documented On 4 2:42PM ; [facility] Maternal history of family history of ki dney disease 11/26/2022 Last Documented On 4 2:42PM ; [facility] Sororal history of Arthritis 11/26/2022 Last Documented On 4 2:42PM ; [facility] Review of Systems Includes: Review of Systems from this encounter Systemic: No systemic symptoms other then noted. Fatigue and recent weight change. No recent weight loss. Head: No head symptoms other then noted. Headache chronic/recurring. Neck: Neck pain. Eyes: Eye symptoms. Otolaryngeal: No otolaryngeal symptoms other than noted. Cardiovascular: No cardiovascular symptoms other than noted. Chest pain or discomfort and varicose veins. Pulmonary: No pulmonary symptoms other than noted. Gastrointestinal: Normal appetite No GI symptoms other than noted. Obstipation with pain and constipation. Genitourinary: No genitourinary symptoms other than noted. Increased urinary frequency and urinary loss of control. Endocrine: No endocrine symptoms other than noted. Weakness. Hematologic: No easy bleeding and no tendency for easy bruising. H/o blood transfusions. Musculoskeletal: No musculoskeletal symptoms other than noted. Back pain, ankle joint swelling, and localized soft tissue swelling in the foot. Neurological: No neurological symptoms other than noted. Dizziness. No fainting passing out with needles or medical procedures. Falls and numbness. Psychological: Feeling nervous and depression. No sleep disturbances other than noted. Skin: No skin symptoms other than noted. Mental Status Includes: Mental Status from this encounter No Mental Status Recorded Functional Status Includes: Functional Status from this encounter No Functional Status Recorded Physical Exam Includes: Physical Exam from this encounter Allergies Includes: Active Allergies Substance Type Reaction Onset Date Resolved Date Statu s Adhesive Tape Allergy 11/26/2022 Activ e Last Documented On 9:45AM ; [facility] Encounters Encounter Provider Location Date Check-In Time Check-Out Time Diagnosis PAIN MANAGEMENT FOLLOW UP AFSANEH OSORIO, LIZABETH [facility] 06/17/19 24 2:42PM 3:20PM Cervical Spondylosis,S thuy Stenosis Lumbar,Chroni c Pain Syndrome,Sacr oiliitis,Lumb ar Radiculopathy ,Chronic Kidney Disease Stage 2,Fibromyalgi a,Dorsopathy Low Back Pain Insurance Includes: Active Insurance Policies Plan Name Member ID Group # Subscriber Relationship Effect tena Dates 1 - MEDICARE PART A CLAIMS/NGS [id number] ANA BASS Self 03/17/2011 - Unknown 2 - [employer] [id number] PLAN F ANA BASS Self 05/15/2017 - Unknown Clinical Notes Includes: Clinical Notes from this encounter * Progress note Date Encounter Last Documented by 06/17/2023 PAIN MANAGEMENT FOLLOW UP Last d ocumented on 06/17/2023; 3:53 PM, AFSANEH OSORIO, LIZABETH; [facility] Active Problems & Conditions - Anxiety Disorder Nos - Chronic Kidney Disease Stage 2 - Depression - Hyperlipidemia - Iron Deficiency Anemia - Labile Hypertension - Myalgia and Myositis - Obesity - Osteoarthritis - Osteopenia Chief Complaint The Chief Complaint is: Follow up after left SI injection 05/22/2023 50 % - 60 ongoing. History of Present Illness PHQ-9 Score: 8 Date:05/09/2023 BPI Score: Date: Oswestry Score: 44% Date: 05/09/23 SOAPP-R Score: 19 Date: 05/09/23 Pain Location: left lumbar Quality: thorbbing Radiation: into left leg. Severity: Timing: constant. Associated Sx: Aggravating Factors:being up on feet, shopping, walking, bending. Alleviating Factors:Laying down. Past Tx: physical therapy *2, injections, 12/31/22 L4-5 TFESI resolved radicular symptoms 90% back pain 50%, L Si joint injection 01/29/23 65% better, PT Mar 25- May 09 cervical spine [not helpful] ANA BASS is a 78 year old female. - Allergy list reviewed - Problem list reviewed - Medication reconciliation performed - Medication list reviewed - Prescription Drug Monitoring Program website checked. 03/05/2023 - How much of the medication are you taking a day? One per day - Last dose of medication? Last night - Pain comes/goes - Primary pain location Left lower back and sometimes down leg - Primary pain duration Some constant until I go sit and rest - Secondary pain duration The neck pain when I tilt head back or turn quickly - Secondary pain location My back and neck - Pain is burning - Pain is throbbing - Pain is dull, aching - Pain is shooting - Pain is described as tingling - Pain aggravated going up stairs - Pain aggravated standing - Pain aggravated by walking - Pain aggravated by working - Pain radiating to both shoulders - Neck pain radiating to both sides - Pain radiates in right eye - Pain radiates in both hands - Pain radiating in the left thigh - Vertigo - Last drug screen appropriate 11/26/2022 Discussion: FU after L SI joint injection which provided her with at least 60% relief of her low back pain. We reviewed her MRI of her cervical spine. She would like to hold off on any interventional procedure at this time. States pain is tolerable. She continues her HEP. She is happy with the increase in the Duloxetine stating it has helped with her depression/anxiety and pain. PRIOR VISIT: FU after doing PT for axial neck pain. She just finished 6 weeks of therapy. PT has not been helpful. She continues a home exercise program. Pain is mostly on the right side but she does have some left sided pain as well. We will obtain MRI and consider ablation depending on MRI results. Her low back pain on the left side is really hurting her again. She feels like her last SI joint injection started to wear off a few weeks ago. She did grocery shopping the other day and vacuumed and pain is severe again. Previous L SI joint injection was 65% helpful for her and this was done 3 1/2 months ago. She did PT for her low back pain last for 6 weeks in summer and continues her home exercise program. She has done PT several times for her low back pain. It has not helped her at all. I would recommend repeating the SI joint injection. PRIOR VISIT: Here for FU after L SI joint injection. She feels like pain is much better, upwards of 70% and only gets to about a 3/10 now. It is tolerable at this time. She continues to benefit from the epidural having little to no radicular symptoms. She is pleased with her results. In regards to her neck pain I would recommend PT. She will start in PT and then I will see her back in a few months. PRIOR VISIT: FU after L4-5 TFESI. She has no right sided back pain and little to no radicular symptoms now in the left leg. Her remaining pain is in the left low back/buttock area and is axial in nature. She has a tender L SI joint with positive provocative maneuvers. She has had conservative tx of her low back pain for over 6 months including PT and continues a home exercise program, rest, OTC meds, and avoidance of aggravating activity. I would recommend L SI joint injection at this time. She also complains of neck pain and states she is full of arthritis . I will request her cervical spine imaging and we can discuss further when low back symptoms have been fully treated. FIRST VISIT 11/26/22: Patient referred by her primary care Dr. Perry for low back pain. The patient states she has experienced low back pain for 4 to 5 years. It seems to have worsened in the last six months to one year. She has done physical therapy 3 to 4 times over the years. Her last physical therapy session for her low back pain was in the last six months. She continues a home exercise program. This has been minimally beneficial. She has used a TENS unit at therapy before and this was helpful for her. Her low back pain radiates down the left leg not past the knee in a L4 dermatomal pattern. She gets tingling in the thigh at times. Denies numbness. Denies any motor weakness. 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 If she has to do grocery shopping she states she needs a full day to rest because her pain increases so much. If she sits or lays down this lessens her pain. She takes Tramadol and Tylenol p.m. at night to sleep. She utilizes Tylenol sometimes throughout the day. She is currently on Duloxetine 30 mg, we may discuss increasing to 60mg. She is not on NSAIDs due to history of chronic kidney disease. Imaging was reviewed. We discussed transforaminal epidural steroid injection. Although she is reluctant and nervous she is agreeable. I encouraged her to take two Tylenol and one of her Lorazepam that she is already prescribed one hour before the procedure to help with her nerves. 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 Imaging: All relevant imaging available was personally reviewed with the patient today with the following tests and results noted: MRI Lumbar Spine 10/24/22 Spondylosis most severe at L4-5 and L5-S1 with mild central canal stenosis throughout lumbar spine. 4mm Retrolisthesis of L1 on L2, 3 mm of L2 on L3, and 3 mm anterolisthesis of L4 on L5. Multilevel DDD and bulging discs X-ray L Knee 10/24/22 Minimal degenerative spurring of patella. Probable subtle chondrocalcinosis X-ray R Knee 10/24/[address]. Unremarkable soft tissues X-ray Hip bilateral w/o pelvis 10/24/22 Mild degenerative changes bilaterally L>R CT cervical Spine01/11/22 Mild spondylosis. DDD MRI Cervical 05/20/23 Minimal broad based disc bulge and moderate to severe facet hypertrophy at C5-6 with moderate bilateral neural foraminal stenosis. Moderate facet hypertrophy with minimal disc bulge at C4-5 with mild bilateral neural foraminal stenosis. No central canal stenosis. Current Medication - Alendronate Sodium 70 MG Oral Tablet 1 weekly., 0 days, 0 refills - Aspirin EC Low Strength 81 MG Oral Tablet Delayed Release One tablet daily 0 days, 0 refills - Ativan 0.5 MG Oral Tablet 2 tablets at bedtime., 0 days, 0 refills - Bariatric Multivitamins/Iron Oral Capsule 1 capsule daily 0 days, 0 refills - Carvedilol 12.5 MG Oral Tablet One tablet daily 0 days, 0 refills - DULoxetine HCl 60 MG Oral Capsule Delayed Release Particles 1 capsule daily at bedtime, 30 days, 2 refills - Montelukast Sodium 10 MG Oral Tablet One tablet daily 0 days, 0 refills - Pravastatin Sodium 10 MG Oral Tablet One tablet daily 0 days, 0 refills - traMADol HCl 50 MG Oral Tablet One tablet daily one tablet a day., 0 days, 0 refills - Tylenol Extra Strength 500 MG Oral Tablet One tablet daily 0 days, 0 refills - Verapamil HCl ER 240 MG Oral Capsule Extended Release 24 Hour 1 capsule daily 0 days, 0 refills Past Medical/Surgical History 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 depression anxietytia in right eyearthritis bladder problems, and Please list all surgeries: Sleeve weight loss. 2011colon cancer. . Medical: Moderate to severe pain. No Spinal cord stimulator and no Pain Pump. Surgical / Procedural: Prior surgery Gatric Lap Band. No Pacemaker. Tests: X-rays Legs. hips, CT/MRI Back legs, and Ultrasound Legs. Environmental Exposure: Exposure to a lot of bright sunlight. Physical Trauma: Has had no fall in the last 12 months. Has a fear of falling. Diagnoses: Cancer Colon w/ Hemicolectomy in 40's Surgical: - Cholecystectomy - Hysterectomy - Primary Knee Arthroplasty Right Social History Difficulty walking. Tobacco use: Tobacco non-user. Alcohol: No consumption of alcohol. Drug Use: Not using drugs. Marital: . Allergies - Adhesive Tape Family History Father Dementia Mother CVA OA RA Arthritis Diabetes mellitus Sister Maternal: Arthritis Kidney disease Sororal: Arthritis Review Of Systems Systemic: No systemic symptoms other then noted. Fatigue and recent weight change. No recent weight loss. Head: No head symptoms other then noted. Headache chronic/recurring. Neck: Neck pain. Eyes: Eye symptoms. Otolaryngeal: No otolaryngeal symptoms other than noted. Cardiovascular: No cardiovascular symptoms other than noted. Chest pain or discomfort and varicose veins. Pulmonary: No pulmonary symptoms other than noted. Gastrointestinal: Normal appetite No GI symptoms other than noted. Obstipation with pain and constipation. Genitourinary: No genitourinary symptoms other than noted. Increased urinary frequency and urinary loss of control. Endocrine: No endocrine symptoms other than noted. Weakness. Hematologic: No easy bleeding and no tendency for easy bruising. H/o blood transfusions. Musculoskeletal: No musculoskeletal symptoms other than noted. Back pain, ankle joint swelling, and localized soft tissue swelling in the foot. Neurological: No neurological symptoms other than noted. Dizziness. No fainting passing out with needles or medical procedures. Falls and numbness. Psychological: Feeling nervous and depression. No sleep disturbances other than noted. Skin: No skin symptoms other than noted. Physical Findings - Vitals taken 06/17/2023 03:05 pm BP-Sitting R 120/74 mmHg BP Cuff Size Regular Pulse Rate-Sitting 96 bpm Temp-Axillary 95.9 F Height 65 in Weight 194 lbs Body Mass Index 32.3 kg/m2 Body Surface Area 2 m2 Pain Level 3 Oxygen Saturation 98 % Musculoskeletal System: General/bilateral: Musculoskeletal Scales: Value Lumbar oswestry score 42 Psychiatric: Psychiatric: Value PHQ9 score: 8 Constitutional: Well developed. Well nourished. No acute distress. HEENT: NC/AT. Anicteric. Clear Conjunctiva. PERRLA. MM's pink/moist. No discharge via nares. No discharge via EAC. Neck supple. No thyromegally. No palpable masses. No lymphadenopathy in cervical chain bilaterally. CVS: RRR. No murmurs. No peripheral edema. Peripheral pulses palpable in all extremities. Pulmonary: CTA bilaterally. No wheezes. No rales. No crackles. No rubs. Normal chest expansion. Spine/MSK: Positive facet loading bilaterally. Positive thigh thrust and Paul's on the L with tender L SI joint. Tender over lower lumbar facets. Negative straight leg test bilaterally. Gait: Not antalgic. No steppage gait. No Trendelenburg gait. No circumspected gait pattern. Heel walk normal. Toe walk normal. Tandem gait normal. Neuro: Awake. Alert. Oriented x3. DTR's intact in all extremities. DTR's equal in all extremities. No sensory deficit. No motor deficit. Psych: No apparent distress. Mood normal. Affect normal. No pain behaviors. Skin: Normal. [place], warm, dry. Tests Educational Testing: Questionnaires PHQ-9: Value SOAPP-R: total score 27 Assessment - [N18.2 - Chronic kidney disease, stage 2 (mild)] Chronic kidney disease, stage 2 - [M46.1 - Sacroiliitis, not elsewhere classified] Sacroiliitis - [M47.892 - Other spondylosis, cervical region] Cervical spondylosis - [M54.50 - Low back pain, unspecified] Low back pain - [M48.061 - Spinal stenosis, lumbar region without neurogenic claudication] Lumbar stenosis - [M54.16 - Radiculopathy, lumbar region] Lumbar radiculopathy - [M79.7 - Fibromyalgia] Fibromyalgia - [G89.4 - Chronic pain syndrome] Chronic pain syndrome Therapy - Reviewed & agreed to staff entries. - Clinical summary provided to patient. Counseling/Education - Pill Count: Tramadol Dr. Perry Discussed FU 2 months and as needed. Consider MBB for cervical spine and lumbar spine. Can repeat SI joint and TFESI as needed. Plan Patient was seen today for 4 chronic unstable conditions of the cervical, lumbosacral spine, and central nervous system.Without treatment patient is at risk for significant functional limitations resulting in diminished quality of life and impaired age appropriate activities of daily living. Multiple documents have been reviewed in combination with today's evaluation including imaging studies, outside provider notes, laboratory data, patient self-report questionnaires, and [place] prescription monitoring database entries. Significant social barriers exist to compliance resulting in limited prognosis. Decision to proceed with interventional therapies was made at the time of today's visit. Practice Management Use of tobacco assessment performed and patient screened for future fall risk documentation of any fall with injury in past year Review of medications documented; Standardized depression screening: positive for symptoms and for adult impression and score five; [70239] Established outpatient, medically appropriate H&P, moderate level decision making, 30-39 minutes. A total of [ 15] minutes were spent caring for this patient. Please see details of care in the notes above. Results of this interaction were communicated directly to the patient's referring and/or primary care provider. All imaging studies and test results discussed in the above document were personally reviewed and evaluated by the performing provider. For all patients on acute or chronic opioids, ongoing need for opioid analgesia is assessed at each visit with consideration of discontinuation or wean to lowest effective dose when possible and appropriate. Contents of this document have been edited for correctness, but may be subject to typographical or bit bender errors. Verify all diagnoses, medications, dosages, and patient instructions with patient and/or the originator of this document. Care Team - DOMENIC PERRY MD - Primary Care Health Reminders - Assess Blood Pressure satisfied 06/17/2023. - Assess BMI satisfied 06/17/2023. - Assess Screening for Fall Risk satisfied 06/17/2023. - Assess Tobacco Use satisfied 06/17/2023. - Depression Screening satisfied 06/17/2023.
--- OUTSIDE RECORDS SUMMARY | 2024-06-15 16:11 | XMS_ITS | Clinical Summary ---
Author Organization [facility] Address [address] [place] [address] Phone Care Team Providers Care Dermatology Technician Name Role Phone DOMENIC PERRY MD Primary Care Provider [phone] Reason for Visit and Chief Complaint The Chief Complaint is: 3 month follow up Problems Includes: Problems addressed during this encounter and other active Problems Current Visit Onset Date Resolved Date Provider Conditio n Status Chronic Kidney Disease Stage 2 Unknown AFSANEH Banda DARRIN RECRUITING OPERATIONS CONSULTANT-FPA, CRYPTOLOGIST-BC Active Last Documented On 3 2:12PM ; [facility] Past Visits Onset Date Resolved Date Provider Condition Status Depression Unknown AFSANEH Banda DARRIN RECRUITING OPERATIONS CONSULTANT-FPA, CRYPTOLOGIST-BC Active Last Documented On 3 2:10PM ; [facility] Anxiety Disorder Nos Unknown AFSANEH Banda DARRIN RECRUITING OPERATIONS CONSULTANT-FPA, CRYPTOLOGIST-BC Active Last Documented On 3 2:10PM ; [facility] Osteopenia Unknown AFSANEH G DARRIN RECRUITING OPERATIONS CONSULTANT-FPA, CRYPTOLOGIST-BC Active Last Documented On 3 2:12PM ; [facility] Hyperlipidemia Unknown AFSANEH Banda DARRIN RECRUITING OPERATIONS CONSULTANT-F PA, CRYPTOLOGIST-BC Active Last Documented On 3 2:12PM ; [facility] Labile Hypertension Unknown AFSANEH G DARRIN A PRN-FPA, CRYPTOLOGIST-BC Active Last Documented On 3 2:11PM ; [facility] Iron Deficiency Anemia Unknown AFSANEH Veronika KUL P RECRUITING OPERATIONS CONSULTANT-FPA, CRYPTOLOGIST-BC Active Last Documented On 3 2:11PM ; [facility] Myalgia and Myositis Unknown AFSANEH MARQUEZLP RECRUITING OPERATIONS CONSULTANT-FPA, CRYPTOLOGIST-BC Active Last Documented On 3 2:11PM ; [facility] Obesity Unknown AFSANEH MARQUEZLP RECRUITING OPERATIONS CONSULTANT-FPA, CRYPTOLOGIST-BC Active Last Documented On 3 2:12PM ; [facility] Osteoarthritis Unknown AFSANEH Banda KUL P RECRUITING OPERATIONS CONSULTANT-FPA, CRYPTOLOGIST-BC Active Last Documented On 3 2:11PM ; [facility] Note: multiple joints Plan of [...] of today's visit. - Last Documented On 05/09/2023 10:19AM ; [facility] Education and Decision Aids were provided during visit for: Pill Count: Tramadol [per PC P] Last Documented On 4 9:39AM ; [facility] Assessments Includes: Assessments from this encounter Findings - [N18.2 - Chronic kidney disease, stage 2 (mild)] Chronic kidney disease, stage 2 - Last Documented On 05/09/2023 10:19AM ; [facility] - [M46.1 - Sacroiliitis, not elsewhere classified] Sacroiliitis - Last Documented On 05/09/2023 10:19AM ; [facility] - [M47.892 - Other spondylosis, cervical region] Cervical spondylosis - Last Documented On 05/09/2023 10:19AM ; [facility] - [M54.50 - Low back pain, unspecified] Low back pain - Last Documented On 05/09/2023 10:19AM ; [facility] - [M48.061 - Spinal stenosis, lumbar region without neurogenic claudication] Lumbar stenosis - Last Documented On 05/09/2023 10:19AM ; [facility] - [M54.16 - Radiculopathy, lumbar region] Lumbar radiculopathy - Last Documented On 05/09/2023 10:19AM ; [facility] - [M79.7 - Fibromyalgia] Fibromyalgia - Last Documented On 05/09/2023 10:19AM ; [facility] - [G89.4 - Chronic pain syndrome] Chronic pain syndrome - Last Documented On 05/09/2023 10:19AM ; [facility] Instructions Includes: Instructions from this encounter Education and Decision Aids were provided during visit for: Pill Count: Tramadol [per PC P] Last Documented On 4 9:39AM ; [facility] Medical Equipment - Implanted Devices Includes: [...] 4 10:09AM By AFSANEH BARONE ; [facility] Prevagen 10 MG Oral Capsule 08/18/2023 Provider: Diagnosis: Last Documented On 4 10:09AM By AFSANEH BARONE ; [facility] DULoxetine HCl 60 MG Oral Ca psule Delayed Release Particles 08/01/2023 Provider: LIZABETH BAPTISTE Diagnosis: 1 CAPSULE DAILY AT BEDTIME Last Documented On 4 10:09AM By AFSANEH BARONE ; [facility] Aspirin EC Low Strength 81 MG Oral Tablet Delayed Rele ase 11/26/2022 Provider: Diagnosis: Last Documented On 3 3:27PM By AFSANEH BARONE ; [facility] traMADol HCl 50 MG Oral Tablet 11/26/2022 Provider: Diagnosis: one tablet a day. Last Documented On 3 3:27PM By AFSANEH BARONE ; [facility] Montelukast Sodium 10 MG Oral Tablet 11/26/2022 Prov ider: Diagnosis: Last Documented On 3 3:27PM By AFSANEH BARONE ; [facility] Verapamil HCl ER 240 MG Oral Capsule Extended Re lease 24 Hour 11/26/2022 Provider: Diagnosis: Last Documented On 3 3:27PM By AFSANEH BARONE ; [facility] Ativan 0.5 MG Oral Tablet 11/26/2022 Provider: Diagnosis: 2 tablets at bedtime. Last Documented On 3 3:27PM By AFSANEH BARONE ; [facility] Bariatric Multivitamins/Iron Oral Capsule 11/26/2022 Provider: Diagnosis: Last Documented On 3 3:27PM By AFSANEH BARONE ; [facility] Pravastatin Sodium 10 MG Oral Tablet 11/26/2022 Prov ider: Diagnosis: Last Documented On 3 3:27PM By AFSANEH BARONE ; [facility] Tylenol Extra Strength 500 MG Oral Tablet 11/26/2022 Provider: Diagnosis: Last Documented On 3 3:27PM By AFSANEH BARONE ; [facility] Alendronate Sodium 70 MG Oral Tablet 11/26/2022 Prov ider: Diagnosis: 1 weekly. Last Documented On 3 3:27PM By AFSANEH ABRONE ; [facility] Carvedilol 12.5 MG Oral Tablet 11/26/2022 Provider: Diagnosis: Last Documented On 3 3:27PM By AFSANEH BARONE ; [facility] Past Medications on file Nystatin [id number] UNIT/GM External Cream 08/18/2023 - 09/17/2023 Provider: LIZABETH BAPTISTE Diagnosis: Candidiasis, unspecified apply to buttocks 2 times daily Last Documented On 4 10:21AM By AFSANEH BARONE ; [facility] Fluconazole 100 MG Oral Tablet 08/18/2023 - 08/28/2023 Provider: LIZABETH BAPTISTE Diagnosis: Candidiasis, unspecified take 1 tablet today and then repeat in 1 week Last Documented On 4 10:21AM By AFSANEH BARONE ; [facility] Medications Administered Includes: Administered Medications from this encounter No Administered Medications Recorded Vital Signs Includes: Vital Signs from this encounter Vital Name 05/09/2023 09:53A Blood Pressure Sitting R 122/72 BP Cuff Size Regular Pulse Rate-Sitting (bpm) 88 Temp-Temporal 96.5 Height (in) 65 Weight (lb) 193 Body Mass Index 32.1 Body Surface Area (m2) 1.9 Pain Level 6 Oxygen Saturation (%) 98 Last Documented: On 05/09/2023 9:54AM ; [facility] Results Includes: Results discussed during [...] drug screen appropriate 11/26/2022 Discussion: FU after doing PT for axial neck [...] numbness. Denies any motor weakness. 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 She understands she needs a steam train driver and was given the procedure without [...] L>R CT cervical Spine01/11/22 Mild spondylosis. DDD Social History Description Last Updated 11/26/2022 Last Documented On 4 9:39AM ; [facility] Tobacco non-user 11/26/2022 Last Documented On 4 9:39AM ; [facility] Difficulty walking 11/26/2022 Last Documented On 4 9:39AM ; [facility] No consumption of alcohol 11/26/2022 Last Documented On 4 9:39AM ; [facility] Not using drugs 11/26/2022 Last Documented On 4 9:39AM ; [facility] Smoking Status Unknown Procedures and Surgical History Includes: Procedures from this encounter Procedures Code Diagnosis Performing Provider Service L ocation Service Date use of tobacco assessment performed 1000F Last Documented On 4 9:39AM ; [facility] patient screened for future fall risk: documentation of any fall with injury in past year 1100F Last Documented On 4 9:52AM ; [facility] review of medications documented 1160F Last Documented On 4 9:39AM ; [facility] screening for adult depression: impressi on and score five Last Documented On 4 9:39AM ; [facility] standardized depression screening: posit tena for symptoms Last Documented On 4 9:39AM ; [facility] Reviewed & agreed to staff entries. Last Documented On 4 9:39AM ; [facility] Clinical summary provided to patient Last Documented On 4 9:39AM ; [facility] SOAPP-R: total score 27 Last Documented On 4 9:39AM ; [facility] Surgical History Last Updated History of cholecystectomy 11/26/2022 Last Documented On 4 9:39AM ; [facility] History of hysterectomy 11/26/2022 Last Documented On 4 9:39AM ; [facility] History of Primary Knee Arthroplasty Rig ht 11/26/2022 Last Documented On 4 9:39AM ; [facility] Prior surgery Gatric Lap Band 11/26/2022 Last Documented On 4 9:39AM ; [facility] No Pacemaker 11/26/2022 Last Documented On 4 9:39AM ; [facility] Medical History Includes: Medical History addressed during this encounter Description Last Updated Has had no fall in the last 12 months. 0 08/18/2023 Last Documented On 4 9:39AM ; [facility] Has a fear of falling. 05/09/2023 Last Documented On 4 10:19AM ; [facility] History of cancer Colon w/ Hemicolectomy in 40's 11/26/2022 Last Documented On 4 9:39AM ; [facility] behavioral health care coordinator 11/26/2022 Last Documented On 4 9:39AM ; [facility] CT/MRI Back legs 11/26/2022 Last Documented On 4 9:39AM ; [facility] Exposure to a lot of bright sunlight 02/2023 Last Documented On 4 9:39AM ; [facility] Moderate to severe pain 11/26/2022 Last Documented On 4 9:39AM ; [facility] No Pain Pump 11/26/2022 Last Documented On 4 9:39AM ; [facility] No Spinal cord stimulator 11/26/2022 Last Documented On 4 9:39AM ; [facility] Physical therapy 11/26/2022 Last Documented On 4 9:39AM ; [facility] Please list all illnesses/co nditions you have been diagnosed with: Colon cancer. depression anxietytia in right eyearthritis bladder problems 11/26/2022 Last Documented On 4 9:39AM ; [facility] Please list all surgeries: Sleeve weight loss. 2011colon cancer. 1989-11/26/2022 Last Documented On 4 9:39AM ; [facility] Treatment with TENS unit 11/26/2022 Last Documented On 4 9:39AM ; [facility] Ultrasound Legs 11/26/2022 Last Documented On 4 9:39AM ; [facility] X-rays Legs. hips 11/26/2022 Last Documented On 4 9:39AM ; [facility] Family History Includes: Family History addressed during this encounter Description Last Updated Family history of diabetes mellitus Sist er 11/26/2022 Last Documented On 4 9:39AM ; [facility] Father Dementia 11/26/2022 Last Documented On 4 9:39AM ; [facility] Mother CVA ~OA ~RA 11/26/2022 Last Documented On 4 9:39AM ; [facility] Family history of Arthritis 11/26/2022 Last Documented On 4 9:39AM ; [facility] Maternal history of Arthritis 11/26/2022 Last Documented On 4 9:39AM ; [facility] Maternal history of family history of ki dney disease 11/26/2022 Last Documented On 4 9:39AM ; [facility] Sororal history of Arthritis 11/26/2022 Last Documented On 4 9:39AM ; [facility] Review of Systems Includes: Review of [...] Activ e Last Documented On 9:45AM ; [facility] Encounters Encounter Provider Location Date Check-In Time Check-Out Time Diagnosis PAIN MANAGEMENT FOLLOW UP AFSANEH MARQUEZNEENA ELIN-FPA, CRYPTOLOGIST-BC [facility] 05/09/19 24 9:34AM 10:17AM Cervical Spondylosis,S thuy Stenosis Lumbar,Chroni c Pain Syndrome,Sacr oiliitis,Lumb ar Radiculopathy ,Chronic Kidney Disease Stage 2,Fibromyalgi a,Dorsopathy Low Back Pain Insurance Includes: Active Insurance Policies Plan Name Member ID Group # Subscriber Relationship Effect tena Dates 1 - MEDICARE PART A CLAIMS/NGS [id number] ANA Shabazz KALI Self 03/17/2011 - Unknown 2 - [employer] [id number] PLAN F NAA BASS Self 05/15/2017 - Unknown Clinical Notes Includes: Clinical Notes from this encounter * Progress note Date Encounter Last Documented by 05/09/2023 PAIN MANAGEMENT FOLLOW UP Last d ocumented on 05/09/2023; 10:19 AM, AFSANEH Banda DARRIN ELIN-BELTRANA, CRYPTOLOGIST-SIERRA; [facility] Active Problems & Conditions - Anxiety Disorder Nos - Chronic Kidney Disease Stage 2 - Depression - Hyperlipidemia - Iron Deficiency Anemia - Labile Hypertension - Myalgia and Myositis - Obesity - Osteoarthritis - Osteopenia Chief Complaint The Chief Complaint is: 3 month follow up. History of Present Illness PHQ-9 Score: 8 [...] injection 01/29/23 65% better, PT Mar 25- Feb 23 cervical spine [not helpful] ANA BASS is [...] drug screen appropriate 11/26/2022 Discussion: FU after doing PT for axial neck [...] numbness. Denies any motor weakness. 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 She understands she needs a steam train driver and was given the procedure without [...] L>R CT cervical Spine01/11/22 Mild spondylosis. DDD Current Medication - Alendronate Sodium 70 MG [...] 0 days, 0 refills - DULoxetine HCl 30 MG Oral Capsule Delayed Release Particles 1 capsule daily 0 days, 0 refills - Montelukast Sodium 10 MG Oral [...] days, 0 refills Past Medical/Surgical History Reported: behavioral health care coordinator, 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 depression anxietytia in right eyearthritis bladder problems, and Please list all surgeries: Sleeve weight loss. 2010colon cancer. 1988-. Medical: Moderate to severe pain. No Spinal [...] than noted. Physical Findings - Vitals taken 05/09/2023 09:53 am BP-Sitting R 122/72 mmHg BP Cuff Size Regular Pulse Rate-Sitting 88 bpm Temp-Temporal 96.5 F Height 65 in Weight 193 lbs Body Mass Index 32.1 kg/m2 Pain Level 6 Pain Level Note lumbar Oxygen Saturation 98 % Musculoskeletal System: General/bilateral: [...] Affect normal. No pain behaviors. Skin: Normal. [place], warm, dry. Tests Educational Testing: Questionnaires PHQ-9: [...] to patient. Counseling/Education - Pill Count: Tramadol [per PCP] Discussed MRI for neck pain. Repeat SI joint injection. FU after procedure. Consider MBB for cervical spine and lumbar spine. Can repeat SI joint and TFESI as needed. Risks, benefits and alternatives (including doing nothing) were discussed with the patient who agreed to proceed with interventional treatment despite risk and agreement that potential benefits outweighs the chance of significant harm. Plan StartCited - Other spondylosis, cervical region Radiology @ [facility]/MRI: MRI Cervical w/o contrast Instructions: continued neck pain R>L despite PT EndCited StartCited - Sacroiliitis, not elsewhere classified Pain Management CPT/(SI) Joint procedur: SI joint injection with fluoro Instructions: L SI joint steroid injection patient would like to schedule this the same day as her MRI of her cervical spine EndCited Patient was seen today for 4 chronic [...] and for adult impression and score five; [[id number]] Established outpatient, medically appropriate H&P, moderate level [...] but may be subject to typographical or telehealth coordinator errors. Verify all diagnoses, medications, dosages, and patient instructions with patient and/or the originator of this document. Care Team - DOMENIC PERRY MD - Primary Care Health Reminders - Assess Blood Pressure satisfied 05/09/2023. - Assess BMI satisfied 05/09/2023. - Assess Screening for Fall Risk satisfied 05/09/2023. - Assess Tobacco Use satisfied 05/09/2023. - Depression Screening satisfied 05/09/2023.
--- OUTSIDE RECORDS SUMMARY | 2024-06-15 16:11 | XMS_ITS | Clinical Summary ---
Author Organization [facility] Address [address] [place] [address] Care Team Providers Care Sheeter Helper Name Role Phone Darius Urbina MD Primary Care Provider [phone] Allergies Active Allergy Reactions Criticality Noted Date Comments Tape Unknown 11/01/2011 Adhesive- red and blisters Medications methocarbamol (ROBAXIN) 500 MG tablet Take 1 tablet (500 mg total) by mouth 3 (three) times daily as needed. Active traMADol (ULTRAM) 50 MG tablet Take 1 tablet (50 mg total) by mouth daily. Active aspirin 81 MG chewable tablet Chew 1 tablet (81 mg total) by mouth daily. Active verapamil (CALAN) 120 MG tablet Take 2 tablets (240 mg total) by mouth daily. Active montelukast (SINGULAIR) 10 MG tablet Take 1 tablet (10 mg total) by mouth daily. Active Multiple Vitamins-Minera ls (MULTIVITAMIN ADULTS OR) Take 1 tablet by mouth daily. bariatric Active LORazepam (ATIVAN) 0.5 MG tablet Take 2 tablets (1 mg total) by mouth daily. Active pravastatin (PRAVACHOL) 10 MG tablet Take 1 tablet (10 mg total) by mouth daily. Active alendronate (FOSAMAX) 70 MG tablet Take 1 tablet (70 mg total) by mouth every 7 days. mondays Active DULoxetine (CYMBALTA) 60 MG capsule Take 1 capsule (60 mg total) by mouth daily. Active diphenhydrAMINE -APAP (TYLENOL PM) 25-500 MG Tab tablet Take 2 tablets by mouth nightly at bedtime. Active acetaminophen (TYLENOL) 500 MG tablet Take 1 tablet (500 mg total) by mouth daily. Active biotin 300 MCG Tab Take 1 tablet (300 mcg total) by mouth daily. Active Family History Medical History Relation Comments Anesthesia problems Mother heart stoppe d- denies mal. hyperthermia Arthritis Mother Kidney Disease Mother Diabetes Sister 1 PONV Sister 1 Mental Health Sister 2 Relation Status Comments Mother Sister 1 Sister 2 Social History Tobacco Use Types Packs/Day Years Used Date Smoking Tobacco: Never Smokeless Tobacco: Never Tobacco Cessation:Counseling Given: Not Answered Alcohol Use Standard Drinks/Week Comments Not Currently 0 (1 standard drink = 0.6 oz pur e alcohol) seldom Comments No Sex and Gender Information Value Date Recorded Sex Assigned at Not on file Legal Sex Female 9:06 PM EXCHANGE TROUBLE SHOOTER Gender Identity Not on file Sexual Orientation Not on file Last Filed Vital Signs Vital Sign Reading Time Taken Comments Blood Pressure 175/103 01/22/2024 1:05 PM EXCHANGE TROUBLE SHOOTER Pulse 69 01/22/2024 1:05 PM EXCHANGE TROUBLE SHOOTER Temperature 36.4 C (97.6 F) 01/22/2024 1:05 PM EXCHANGE TROUBLE SHOOTER Respiratory Rate 18 01/22/2024 1:05 PM EXCHANGE TROUBLE SHOOTER Oxygen Saturation 99% 01/22/2024 1:05 PM EXCHANGE TROUBLE SHOOTER Inhaled Oxygen Concentration - - Weight 88.4 kg (194 lb 14.2 oz) 024 11:06 AM EXCHANGE TROUBLE SHOOTER Height 165.1 cm (5' 5 ) 01/14/2024 10:4 0 AM CDT Body Mass Index 32.43 01/14/2024 10:40 AM CDT Plan of Treatment Health Maintenance Due Date Last Done Comments Hepatitis C 1963 DTaP, Tdap and Td Vaccines ( 1 - Tdap) 1965 Zoster Vaccines (1 of 2) 1996 Annual Medicare Wellness Visit 2011 Dexa Scan (General) 2011 Pneumococcal Vaccine: 65+ Years (1 of 1 - PCV) 2011 RSV Immunization or 60+ Years (1 - 1-dose 75+ series) 2021 COVID-19 Vaccine (4 - 2023-2 5 season) 2023 02/13/2021, 06/13/2020, 05/23/2020 Influenza Adult (#1) 2023 Meningococcal B Vaccine Aged Out No l onger eligible based on patient's age to complete this topic Meningococcal Vaccine Aged Out No enrico irasema eligible based on patient's age to complete this topic RSV Immunizations Under 20 Months Aged Out No longer eligible b ased on patient's age to complete this topic Medical Devices Implanted Type Area Remote Broadcast Technician Device Identifier Shelf Expiration Date Model / Serial / Lot Interstim X Implanted:Qt y: 1 on 01/22/2024 by Wilmer Jaramillo MD at [facility] Stimulator Implant N/A: Buttocks [employer] 04/30/2025 [id number] / [id number] / Implant Lead Implanted:Qt y: 1 on 01/22/2024 by Wilmer Jaramillo MD at [facility] Stimulator Implant N/A: Sacrum [employer] 09/07/2025 [id number] / / [id number] Insurance MEDICARE [id number] Advance Directives * Full Code (Latest Code Status on File) Date Activated Date Inactivated Comments 01/22/2024 12:40 PM 01/22/2024 3:39 PM Care Teams Sheeter Helper Relationship Specialty Start Date End Date Darius Urbina MD [address] [place] [address] PCP - General INTERNAL MEDICINE 01/14/24
--- OUTSIDE RECORDS SUMMARY | 2024-06-15 16:12 | XMS_ITS ---
Care Plan - [facility] Created on: June 15, 2024 ANA BASS : 1945 Sex: Female Author Organization [facility] Address [address] [place] [address] Phone Care Team Providers Care Ground Hand Name Role Phone DOMENIC PERRY MD Primary Care Provider [phone]
--- OUTSIDE RECORDS SUMMARY | 2024-06-15 16:12 | XMS_ITS | Clinical Summary ---
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 Name Role Phone DOMENIC PERRY MD Primary Care Provider [phone] Reason for Visit and Chief Complaint The Chief Complaint is: Follow up SI injection 01/29/2023 ~50 % 65 onoging Problems Includes: Problems addressed during this encounter and other active Problems Current Visit Onset Date Resolved Date Provider Conditio n Status Chronic Kidney Disease Stage 2 Unknown AFSANEH Banda DARRIN FOOD STAND MANAGER-FPA, ZINC PLATING MACHINE OPERATOR-BC Active Last Documented On 3 2:12PM ; [facility] Past Visits Onset Date Resolved Date Provider Condition Status Depression Unknown AFSANEH G DARRIN FOOD STAND MANAGER-FPA, ZINC PLATING MACHINE OPERATOR-BC Active Last Documented On 3 2:10PM ; [facility] Anxiety Disorder Nos Unknown AFSANEH G DARRIN FOOD STAND MANAGER-FPA, ZINC PLATING MACHINE OPERATOR-BC Active Last Documented On 3 2:10PM ; [facility] Osteopenia Unknown AFSANEH G DARRIN FOOD STAND MANAGER-FPA, ZINC PLATING MACHINE OPERATOR-BC Active Last Documented On 3 2:12PM ; [facility] Hyperlipidemia Unknown AFSANEH G DARRIN FOOD STAND MANAGER-F PA, ZINC PLATING MACHINE OPERATOR-BC Active Last Documented On 3 2:12PM ; [facility] Labile Hypertension Unknown AFSANEH G DARRIN A PRN-FPA, ZINC PLATING MACHINE OPERATOR-BC Active Last Documented On 3 2:11PM ; [facility] Iron Deficiency Anemia Unknown AFSANEH G KUL P FOOD STAND MANAGER-FPA, ZINC PLATING MACHINE OPERATOR-BC Active Last Documented On 3 2:11PM ; [facility] Myalgia and Myositis Unknown AFSANEH MARQUEZLP FOOD STAND MANAGER-FPA, ZINC PLATING MACHINE OPERATOR-BC Active Last Documented On 3 2:11PM ; [facility] Obesity Unknown AFSANEH Banda DARRIN FOOD STAND MANAGER-FPA, ZINC PLATING MACHINE OPERATOR-BC Active Last Documented On 3 2:12PM ; [facility] Osteoarthritis Unknown AFSANEH Banda KUL P FOOD STAND MANAGER-FPA, ZINC PLATING MACHINE OPERATOR-BC Active Last Documented On 3 2:11PM ; [facility] Note: multiple joints Plan of Treatment Patient was seen today for 2 chronic unstable conditions of the lumbosacral spine, and central nervous system.Without treatment [...] of today's visit. - Last Documented On 02/17/2023 10:09AM ; [facility] Education and Decision Aids were provided during visit for: Pill Count: Tramadol [per PC P] Last Documented On 3 9:46AM ; [facility] Assessments Includes: Assessments from this encounter Findings - [N18.2 - Chronic kidney disease, stage 2 (mild)] Chronic kidney disease, stage 2 - Last Documented On 02/17/2023 10:09AM ; [facility] - [M46.1 - Sacroiliitis, not elsewhere classified] Sacroiliitis - Last Documented On 02/17/2023 10:09AM ; [facility] - [M47.892 - Other spondylosis, cervical region] Cervical spondylosis - Last Documented On 02/17/2023 10:09AM ; [facility] - [M54.50 - Low back pain, unspecified] Low back pain - Last Documented On 02/17/2023 10:09AM ; [facility] - [M48.061 - Spinal stenosis, lumbar region without neurogenic claudication] Lumbar stenosis - Last Documented On 02/17/2023 10:09AM ; [facility] - [M54.16 - Radiculopathy, lumbar region] Lumbar radiculopathy - Last Documented On 02/17/2023 10:09AM ; [facility] - [M79.7 - Fibromyalgia] Fibromyalgia - Last Documented On 02/17/2023 10:09AM ; [facility] - [G89.4 - Chronic pain syndrome] Chronic pain syndrome - Last Documented On 02/17/2023 10:09AM ; [facility] Instructions Includes: Instructions from this encounter Education and Decision Aids were provided during visit for: Pill Count: Tramadol [per PC P] Last Documented On 3 9:46AM ; [facility] Medical Equipment - Implanted Devices Includes: [...] On 4 10:09AM By AFSANEH BARONE ; [facility] Prevagen 10 MG Oral Capsule 08/18/2023 Provider: Diagnosis: Last Documented On 4 10:09AM By AFSANEH BARONE ; [facility] DULoxetine HCl 60 MG Oral Ca psule Delayed Release Particles 08/01/2023 Provider: LIZABETH BAPTISTE Diagnosis: 1 CAPSULE DAILY AT BEDTIME Last Documented On 4 10:09AM By AFSANEH BARONE ; [facility] Aspirin EC Low Strength 81 MG Oral Tablet Delayed Rele ase 11/26/2022 Provider: Diagnosis: Last Documented On 3 3:27PM By AFSANEH BARONE ; [facility] traMADol HCl 50 MG Oral Tablet 11/26/2022 Provider: Diagnosis: one tablet a day. Last Documented On 3 3:27PM By AFSANEH BARONE ; [facility] Montelukast Sodium 10 MG Oral Tablet 11/26/2022 Prov ider: Diagnosis: Last Documented On 3 3:27PM By AFSANEH BARONE ; [facility] Verapamil HCl ER 240 MG Oral Capsule Extended Re lease 24 Hour 11/26/2022 Provider: Diagnosis: Last Documented On 3 3:27PM By AFSANEH BARONE ; [facility] Ativan 0.5 MG Oral Tablet 11/26/2022 Provider: Diagnosis: 2 tablets at bedtime. Last Documented On 3 3:27PM By AFSANEH BARONE ; [facility] Bariatric Multivitamins/Iron Oral Capsule 11/26/2022 Provider: Diagnosis: Last Documented On 3 3:27PM By AFSANEH BARONE ; [facility] Pravastatin Sodium 10 MG Oral Tablet 11/26/2022 Prov ider: Diagnosis: Last Documented On 3 3:27PM By AFSANEH BARONE ; [facility] Tylenol Extra Strength 500 MG Oral Tablet 11/26/2022 Provider: Diagnosis: Last Documented On 3 3:27PM By AFSANEH BARONE ; [facility] Alendronate Sodium 70 MG Oral Tablet 11/26/2022 Prov ider: Diagnosis: 1 weekly. Last Documented On 3 3:27PM By AFSANEH BARONE ; [facility] Carvedilol 12.5 MG Oral Tablet 11/26/2022 Provider: Diagnosis: Last Documented On 3 3:27PM By AFSANEH BARONE ; [facility] Past Medications on file Nystatin 329111 UNIT/GM External Cream 08/18/2023 - 09/17/2023 Provider: LIZABETH BAPTISTE Diagnosis: Candidiasis, unspecified apply to buttocks 2 times daily Last Documented On 4 10:21AM By AFSANEH BARONE ; [facility] Fluconazole 100 MG Oral Tablet 08/18/2023 - 08/28/2023 Provider: LIZABETH BAPTISTE Diagnosis: Candidiasis, unspecified take 1 tablet today and then repeat in 1 week Last Documented On 4 10:21AM By AFSANEH YU- ; [facility] Medications Administered Includes: Administered Medications from this encounter No Administered Medications Recorded Vital Signs Includes: Vital Signs from this encounter Vital Name 02/17/2023 09:51A Blood Pressure Sitting R 106/70 BP Cuff Size Regular Pulse Rate-Sitting (bpm) 101 Temp-Oral (F) 95.9 Height (in) 65 Weight (lb) 194 Body Mass Index 32.3 Body Surface Area 2 Pain Level 3 Oxygen Saturation (%) 99 Last Documented: On 02/17/2023 9:53AM ; [facility] Results Includes: Results discussed during this encounter No Results Recorded For Specified Dates History of Present Illness Includes: History of Present Illness from this encounter HPI PHQ-9 Score: 8 Date:11/26/2022PI Score: Date:Oswestry Score: 42% Date:11/26/2022SOAPP-R Score: 27 high Date:11/26/2022ain Location: left lumbarQuality: thorbbingRadiation: into left leg. Severity: Timing: constant. Associated Sx: Aggravating Factors:being up on feet, shopping, walking, bending. Alleviating Factors:Laying down. Past Tx: physical therapy *2, injections, L4-5 TFESI 12/25 resolved radicular symptoms 90% back pain 50%, L Si joint injection 01/29/23 65% better ANA BASS is a 77 year old female. - Allergy list reviewed - Problem list reviewed - Medication reconciliation performed - Medication list reviewed - Prescription Drug Monitoring Program website checked. 02/04/2023 Dr. Perry - How much of the medication are [...] Pain radiating in the left thigh - No vertigo - Last drug screen appropriate 11/26/2022 Discussion: Here for FU after L SI joint injection. She feels like pain is much better, upwards of 70% and only gets to about a 3/10 now. It is tolerable at this time. She continues to benefit from the epidural having little to no radicular symptoms. SHe is pleased with her results. In regards [...] numbness. Denies any motor weakness. 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 and was given the procedure without [...] Description Last Updated 11/26/2022 Last Documented On 3 9:46AM ; [facility] Tobacco non-user 11/26/2022 Last Documented On 3 9:46AM ; [facility] Difficulty walking 11/26/2022 Last Documented On 3 9:46AM ; [facility] No consumption of alcohol 11/26/2022 Last Documented On 3 9:46AM ; [facility] Not using drugs 11/26/2022 Last Documented On 3 9:46AM ; [facility] Smoking Status Unknown Procedures and Surgical History Includes: Procedures from this encounter Procedures Code Diagnosis Performing Provider Service L ocation Service Date use of tobacco assessment performed 1000F Last Documented On 3 9:46AM ; [facility] review of medications documented 1160F Last Documented On 3 9:46AM ; [facility] screening for adult depression: impressi on and score five Last Documented On 3 9:46AM ; [facility] standardized depression screening: posit tena for symptoms Last Documented On 3 9:46AM ; [facility] Reviewed & agreed to staff entries. Last Documented On 3 9:46AM ; [facility] Clinical summary provided to patient Last Documented On 3 9:46AM ; [facility] SOAPP-R: total score 27 Last Documented On 3 9:46AM ; [facility] Surgical History Last Updated History of cholecystectomy 11/26/2022 Last Documented On 3 9:46AM ; [facility] History of hysterectomy 11/26/2022 Last Documented On 3 9:46AM ; [facility] History of Primary Knee Arthroplasty Rig ht 11/26/2022 Last Documented On 3 9:46AM ; [facility] Prior surgery Gatric Lap Band 11/26/2022 Last Documented On 3 9:46AM ; [facility] No Pacemaker 11/26/2022 Last Documented On 3 9:46AM ; [facility] Medical History Includes: Medical History addressed during this encounter Description Last Updated Has had no fall in the last 12 months. 0 08/18/2023 Last Documented On 3 9:46AM ; [facility] Denies a fear of falling. 05/09/2023 Last Documented On 3 9:46AM ; [facility] History of cancer Colon w/ Hemicolectomy in 40's 11/26/2022 Last Documented On 3 9:46AM ; [facility] patient centered care specialist 11/26/2022 Last Documented On 3 9:46AM ; [facility] CT/MRI Back legs 11/26/2022 Last Documented On 3 9:46AM ; [facility] Exposure to a lot of bright sunlight 02/2023 Last Documented On 3 9:46AM ; [facility] Moderate to severe pain 11/26/2022 Last Documented On 3 9:46AM ; [facility] No Pain Pump 11/26/2022 Last Documented On 3 9:46AM ; [facility] No Spinal cord stimulator 11/26/2022 Last Documented On 3 9:46AM ; [facility] Physical therapy 11/26/2022 Last Documented On 3 9:46AM ; [facility] Please list all illnesses/co nditions you have been diagnosed with: Colon cancer. depression anxietytia in right eyearthritis bladder problems 11/26/2022 Last Documented On 3 9:46AM ; [facility] Please list all surgeries: Sleeve weight loss. 2011colon cancer. 1988-11/26/2022 Last Documented On 3 9:46AM ; [facility] Treatment with TENS unit 11/26/2022 Last Documented On 3 9:46AM ; [facility] Ultrasound Legs 11/26/2022 Last Documented On 3 9:46AM ; [facility] X-rays Legs. hips 11/26/2022 Last Documented On 3 9:46AM ; [facility] Family History Includes: Family History addressed during this encounter Description Last Updated Family history of diabetes mellitus Sist er 11/26/2022 Last Documented On 3 9:46AM ; [facility] Father Dementia 11/26/2022 Last Documented On 3 9:46AM ; [facility] Mother CVA ~OA ~RA 11/26/2022 Last Documented On 3 9:46AM ; [facility] Family history of Arthritis 11/26/2022 Last Documented On 3 9:46AM ; [facility] Maternal history of Arthritis 11/26/2022 Last Documented On 3 9:46AM ; [facility] Maternal history of family history of ki dney disease 11/26/2022 Last Documented On 3 9:46AM ; [facility] Sororal history of Arthritis 11/26/2022 Last Documented On 3 9:46AM ; [facility] Review of Systems Includes: Review of [...] Allergy 11/26/2022 Activ e Last Documented On 4 9:45AM ; [facility] Encounters Encounter Provider Location Date Check-In Time Check-Out Time Diagnosis PAIN MANAGEMENT FOLLOW UP AFSANEH CLIFFORD FOOD STAND MANAGER-FPA, ZINC PLATING MACHINE OPERATOR-BC [facility] 02/18/20 23 9:42AM 10:07AM Spinal Stenosis Lumbar,Chronic Pain Syndrome,Sacro iliitis,Lumbar Radiculopathy, Chronic Kidney Disease Stage 2,Fibromyalgia ,Dorsopathy Low Back Pain,Cervical Spondylosis Insurance Includes: Active Insurance Policies Plan Name Member ID Group # Subscriber Relationship Effect tena Dates 1 - MEDICARE PART A CLAIMS/NGS [id number] ANA MADRIDS Self 03/17/2011 - Unknown 2 - [employer] [id number] PLAN F ANA Shabazz KALI Self 05/15/2017 - Unknown Clinical Notes Includes: Clinical Notes from this encounter * Progress note Date Encounter Last Documented by 02/17/2023 PAIN MANAGEMENT FOLLOW UP Last d ocumented on 02/17/2023; 10:09 AM, AFSANEH Banda DARRIN FOOD STAND MANAGER-FPA, ZINC PLATING MACHINE OPERATOR-BC; [facility] Active Problems & Conditions - Anxiety Disorder Nos - Chronic Kidney Disease Stage 2 - Depression - Hyperlipidemia - Iron Deficiency Anemia - Labile Hypertension - Myalgia and Myositis - Obesity - Osteoarthritis - Osteopenia Chief Complaint The Chief Complaint is: Follow up SI injection 01/29/2023 50 % 65 onoging. History of Present Illness PHQ-9 Score: 8 Date:11/26/2022 BPI Score: Date: Oswestry Score: 42% Date:11/26/2022 SOAPP-R Score: 27 high Date:11/26/2022 Pain Location: left lumbar Quality: thorbbing Radiation: into left leg. Severity: Timing: constant. Associated Sx: Aggravating Factors:being up on feet, shopping, walking, bending. Alleviating Factors:Laying down. Past Tx: physical therapy *2, injections, L4-5 TFESI 12/25 resolved radicular symptoms 90% back pain 50%, L Si joint injection 01/29/23 65% better ANA BASS is a 77 year old female. - Allergy list reviewed - Problem list reviewed - Medication reconciliation performed - Medication list reviewed - Prescription Drug Monitoring Program website checked. 02/04/2023 Dr. Perry - How much of the medication are [...] Pain radiating in the left thigh - No vertigo - Last drug screen appropriate 11/26/2022 Discussion: Here for FU after L SI joint injection. She feels like pain is much better, upwards of 70% and only gets to about a 3/10 now. It is tolerable at this time. She continues to benefit from the epidural having little to no radicular symptoms. SHe is pleased with her results. In regards [...] numbness. Denies any motor weakness. 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 depression anxietytia in right eyearthritis bladder problems, and Please list all surgeries: Sleeve weight loss. 2010[place] cancer. . Medical: Moderate to severe pain. No Spinal cord stimulator and no Pain Pump. Surgical / Procedural: Prior surgery Gatric Lap Band. No Pacemaker. Tests: X-rays Legs. hips, CT/MRI Back legs, and Ultrasound Legs. Environmental Exposure: Exposure to a lot of bright sunlight. Physical Trauma: Has had no fall in the last 12 months. and Denies a fear of falling. Diagnoses: Cancer Colon w/ Hemicolectomy in 's Surgical: - Cholecystectomy - Hysterectomy - Primary [...] than noted. Physical Findings - Vitals taken 02/17/2023 09:51 am BP-Sitting R 106/70 mmHg BP Cuff Size Regular Pulse Rate-Sitting 101 bpm Temp-Oral 95.9 F Height 65 in Weight 194 lbs Body Mass Index 32.3 kg/m2 Body Surface Area 2 m2 Pain Level 3 Pain Level Note Left hip Oxygen Saturation 99 % Musculoskeletal System: General/bilateral: Musculoskeletal Scales: Value Lumbar oswestry score 42 Psychiatric: Psychiatric: Value PHQ9 score: 5 Constitutional: Well developed. Well nourished. No acute [...] Affect normal. No pain behaviors. Skin: Normal. [place], warm, dry. Tests Educational Testing: Questionnaires PHQ-9: [...] - Pill Count: Tramadol [per PCP] Discussed Start PT for neck pain. FU 3 months. Consider MBB for cervical spine. Plan StartCited - Other spondylosis, cervical region Therapy/Physical Therapy: Physical Therapy Instructions: Evaluate and Treat for neck pain. Establish HEP. She would like to start after the first of the year. Octavio [facility] [place] please EndCited Patient was seen today for 2 chronic unstable conditions of the lumbosacral spine, and central nervous system.Without treatment patient is at risk for significant functional limitations resulting in diminished quality of life and impaired age appropriate activities of daily living. Multiple documents have been reviewed in combination with today's evaluation including imaging studies, outside provider notes, laboratory data, patient self-report questionnaires, and [employer] prescription monitoring database entries. Significant social barriers exist to compliance resulting in limited prognosis. Decision to proceed with interventional therapies was made at the time of today's visit. Practice Management Use of tobacco assessment performed Review of medications documented; Standardized depression screening: positive for symptoms and for adult impression and score five; [[id number]] Established outpatient, medically appropriate H&P, moderate level [...] but may be subject to typographical or machine group leader errors. Verify all diagnoses, medications, dosages, and patient instructions with patient and/or the originator of this document. Care Team - DOMENIC PERRY MD - Primary Care Health Reminders - Assess Blood Pressure satisfied 02/17/2023. - Assess BMI satisfied 02/17/2023. - Assess Need for CT Lung Screen satisfied 02/17/2023. - Assess Tobacco Use satisfied 02/17/2023. - Depression Screening satisfied 02/17/2023.
--- OUTSIDE RECORDS SUMMARY | 2024-06-15 16:12 | XMS_ITS | Clinical Summary ---
Author Organization [facility] Address [address] [place] [address] Phone Care Team Providers Care Timber Killer Name Role Phone DOMENIC PERRY MD Primary Care Provider [phone] Reason for Visit and Chief Complaint POST PROCEDURE PHONE CALL Problems Includes: Problems addressed during this encounter and other active Problems All Visits Onset Date Resolved Date Provider Condition S tatus Depression Unknown AFSANEH G DARRIN STUDENT MINISTRIES DIRECTOR-FPA, SOLUTIONS DEVELOPER-BC Active Last Documented On 3 2:10PM ; [facility] Anxiety Disorder Nos Unknown AFSANEH G DARRIN STUDENT MINISTRIES DIRECTOR-FPA, SOLUTIONS DEVELOPER-BC Active Last Documented On 3 2:10PM ; [facility] Osteopenia Unknown AFSANEH G DARRIN STUDENT MINISTRIES DIRECTOR-FPA, SOLUTIONS DEVELOPER-BC Active Last Documented On 3 2:12PM ; [facility] Chronic Kidney Disease Stage 2 Unknown ANTHONY SA G DARRIN STUDENT MINISTRIES DIRECTOR-FPA, SOLUTIONS DEVELOPER-BC Active Last Documented On 3 2:12PM ; [facility] Hyperlipidemia Unknown AFSANEH G DARRIN STUDENT MINISTRIES DIRECTOR-F PA, SOLUTIONS DEVELOPER-BC Active Last Documented On 3 2:12PM ; [facility] Labile Hypertension Unknown AFSANEH G DARRIN A PRN-FPA, SOLUTIONS DEVELOPER-BC Active Last Documented On 3 2:11PM ; [facility] Iron Deficiency Anemia Unknown AFSANEH G KUL P STUDENT MINISTRIES DIRECTOR-FPA, SOLUTIONS DEVELOPER-BC Active Last Documented On 3 2:11PM ; [facility] Myalgia and Myositis Unknown AFSANEH G DARRIN STUDENT MINISTRIES DIRECTOR-OSCAR, SOLUTIONS DEVELOPER-BC Active Last Documented On 3 2:11PM ; [facility] Obesity Unknown AFSANEH Banda DARRIN STUDENT MINISTRIES DIRECTOR-FPA, SOLUTIONS DEVELOPER-BC Active Last Documented On 3 2:12PM ; [facility] Osteoarthritis Unknown AFSANEH Banda JIMMYMele P TERRY-FPWellington, SOLUTIONS DEVELOPER-BC Active Last Documented On 3 2:11PM ; [facility] Note: multiple joints Plan of Treatment No Plan of Treatment Recorded Assessments Includes: Assessments from this encounter No Assessments Recorded Medical Equipment - Implanted Devices Includes: Current [...] On 4 10:09AM By AFSANEH BARONE ; [facility] Prevagen 10 MG Oral Capsule 08/18/2023 Provider: Diagnosis: Last Documented On 4 10:09AM By AFSANEH BARONE ; [facility] DULoxetine HCl 60 MG Oral Ca psule Delayed Release Particles 08/01/2023 Provider: LIZABETH BAPTISTE Diagnosis: 1 CAPSULE DAILY AT BEDTIME Last Documented On 4 10:09AM By AFSANEH BARONE ; [facility] Aspirin EC Low Strength 81 MG Oral Tablet Delayed Rele ase 11/26/2022 Provider: Diagnosis: Last Documented On 3 3:27PM By AFSANEH BARONE ; [facility] traMADol HCl 50 MG Oral Tablet 11/26/2022 Provider: Diagnosis: one tablet a day. Last Documented On 3 3:27PM By AFSANEH BARONE ; [facility] Montelukast Sodium 10 MG Oral Tablet 11/26/2022 Prov ider: Diagnosis: Last Documented On 3 3:27PM By AFSANEH BARONE ; [facility] Verapamil HCl ER 240 MG Oral Capsule Extended Re lease 24 Hour 11/26/2022 Provider: Diagnosis: Last Documented On 3 3:27PM By AFSANEH BARONE ; [facility] Ativan 0.5 MG Oral Tablet 11/26/2022 Provider: Diagnosis: 2 tablets at bedtime. Last Documented On 3 3:27PM By AFSANEH BARONE ; [facility] Bariatric Multivitamins/Iron Oral Capsule 11/26/2022 Provider: Diagnosis: Last Documented On 3 3:27PM By AFSANEH BARONE ; [facility] Pravastatin Sodium 10 MG Oral Tablet 11/26/2022 Prov ider: Diagnosis: Last Documented On 3 3:27PM By AFSANEH BARONE ; [facility] Tylenol Extra Strength 500 MG Oral Tablet 11/26/2022 Provider: Diagnosis: Last Documented On 3 3:27PM By AFSANEH BARONE ; [facility] Alendronate Sodium 70 MG Oral Tablet 11/26/2022 Prov ider: Diagnosis: 1 weekly. Last Documented On 3 3:27PM By AFSANEH BARONE ; [facility] Carvedilol 12.5 MG Oral Tablet 11/26/2022 Provider: Diagnosis: Last Documented On 3 3:27PM By AFSANEH BARONE ; [facility] Past Medications on file Nystatin 134490 UNIT/GM External Cream 08/18/2023 - 09/17/2023 Provider: LIZABETH BAPTISTE Diagnosis: Candidiasis, unspecified apply to buttocks 2 times daily Last Documented On 4 10:21AM By AFSANEH BARONE ; [facility] Fluconazole 100 MG Oral Tablet 08/18/2023 - 08/28/2023 Provider: LIZABETH BAPTISTE Diagnosis: Candidiasis, unspecified take 1 tablet today and then repeat in 1 week Last Documented On 4 10:21AM By AFSANEH BARONE ; [facility] Medications Administered Includes: Administered Medications from this encounter No Administered Medications Recorded Results Includes: Results discussed during this encounter No Results Recorded For Specified Dates History of Present Illness Includes: History of Present Illness from this encounter No History of Present Illness Recorded Social History Description Last Updated 11/26/2022 Last Documented On 4 9:33AM ; [facility] Tobacco non-user 11/26/2022 Last Documented On 4 9:33AM ; [facility] Difficulty walking 11/26/2022 Last Documented On 4 9:33AM ; [facility] No consumption of alcohol 11/26/2022 Last Documented On 4 9:33AM ; [facility] Not using drugs 11/26/2022 Last Documented On 4 9:33AM ; [facility] Smoking Status Unknown Procedures and Surgical History Surgical History Last Updated History of cholecystectomy 11/26/2022 Last Documented On 4 9:33AM ; [facility] History of hysterectomy 11/26/2022 Last Documented On 4 9:33AM ; [facility] History of Primary Knee Arthroplasty Rig ht 11/26/2022 Last Documented On 4 9:33AM ; [facility] Prior surgery Gatric Lap Band 11/26/2022 Last Documented On 4 9:33AM ; [facility] No Pacemaker 11/26/2022 Last Documented On 4 9:33AM ; [facility] Medical History Includes: Medical History addressed during this encounter Description Last Updated Has had no fall in the last 12 months. 0 08/18/2023 Last Documented On 4 9:33AM ; [facility] Has a fear of falling. 05/09/2023 Last Documented On 4 9:33AM ; [facility] History of cancer Colon w/ Hemicolectomy in 40's 11/26/2022 Last Documented On 4 9:33AM ; [facility] care professional 11/26/2022 Last Documented On 4 9:33AM ; [facility] CT/MRI Back legs 11/26/2022 Last Documented On 4 9:33AM ; [facility] Exposure to a lot of bright sunlight 02/2023 Last Documented On 4 9:33AM ; [facility] Moderate to severe pain 11/26/2022 Last Documented On 4 9:33AM ; [facility] No Pain Pump 11/26/2022 Last Documented On 4 9:33AM ; [facility] No Spinal cord stimulator 11/26/2022 Last Documented On 4 9:33AM ; [facility] Physical therapy 11/26/2022 Last Documented On 4 9:33AM ; [facility] Please list all illnesses/co nditions you have been diagnosed with: Colon cancer. depression anxietytia in right eyearthritis bladder problems 11/26/2022 Last Documented On 4 9:33AM ; [facility] Please list all surgeries: Sleeve weight loss. 2011colon cancer. 1989-11/26/2022 Last Documented On 4 9:33AM ; [facility] Treatment with TENS unit 11/26/2022 Last Documented On 4 9:33AM ; [facility] Ultrasound Legs 11/26/2022 Last Documented On 4 9:33AM ; [facility] X-rays Legs. hips 11/26/2022 Last Documented On 4 9:33AM ; [facility] Family History Includes: Family History addressed during this encounter Description Last Updated Family history of diabetes mellitus Sist er 11/26/2022 Last Documented On 4 9:33AM ; [facility] Father Dementia 11/26/2022 Last Documented On 4 9:33AM ; [facility] Mother CVA ~OA ~RA 11/26/2022 Last Documented On 4 9:33AM ; [facility] Family history of Arthritis 11/26/2022 Last Documented On 4 9:33AM ; [facility] Maternal history of Arthritis 11/26/2022 Last Documented On 4 9:33AM ; [facility] Maternal history of family history of ki dney disease 11/26/2022 Last Documented On 4 9:33AM ; [facility] Sororal history of Arthritis 11/26/2022 Last Documented On 4 9:33AM ; [facility] Review of Systems Includes: Review of Systems from this encounter No Review of Systems Recorded Mental Status Includes: Mental Status from this encounter No Mental Status Recorded Functional Status Includes: Functional Status from this encounter No Functional Status Recorded Physical Exam Includes: Physical Exam from this encounter No Physical Exam Recorded Allergies Includes: Active Allergies Substance Type Reaction Onset Date Resolved Date Statu s Adhesive Tape Allergy 11/26/2022 Activ e Last Documented On 4 9:45AM ; [facility] Encounters Encounter Provider Location Date Check-In Time Check-Out Time Diagnosis POST PROCEDURE PHONE CALL AFSANEH CLIFFORD APRN-FPA, GIGI-BC 05/27/2023 9:32AM 11:59PM Insurance Includes: Active Insurance Policies Plan Name Member ID Group # Subscriber Relationship Effect tena Dates 1 - MEDICARE PART A CLAIMS/NGS [id number] ANA GARLANDVINS Self 03/17/2011 - Unknown 2 - [employer] [id number] PLAN F ANA Shabazz KALI Self 05/15/2017 - Unknown Clinical Notes Includes: Clinical Notes from this encounter * Progress note Date Encounter Last Documented by 05/27/2023 POST PROCEDURE PHONE CALL Last d ocumented on 05/27/2023; 9:43 AM, Maria Elena Suarez RN; [facility] Top of Document Post-Procedural Patient Screening Questionnaire Date of Procedure: 05/22/23 Procedure: Left SI joint steroid injection 1. How have you felt since your last procedure? Doing better each day. Improved Same Worse 2. Pain level prior to procedure? 5-08/24 3. Pain level currently? 05/24 4. How long after procedure did symptoms begin? Denies Same pain but worse New Symptoms ? If new, describe: Improving Staying the same Getting worse 5. Any post procedure issues with injection? Denies Heat Swelling Soreness Redness Streaking Injection site pain Bleeding Discharge/Drainage 6. Are you experiencing new numbness in the groin or saddle area? Yes No 7.New loss of bowel or bladder control? Yes No 8. Are you having any of the following symptoms? Denies Had a COULTER the next day, but it went away Fever Chills Night Sweats Rigors/Shaking Chills Headaches Neck Stiffness Sensitivity to sound New muscle pain/Stiffness Weakness Nausea Vomiting Diarrhea Dizziness Rash Flushing Mood Irritability Blood Pressure changes Blood sugar changes Completed by Mitul Suarez RN on 05/27/23 Active Problems & Conditions - Anxiety Disorder Nos - Chronic Kidney Disease Stage 2 - Depression - Hyperlipidemia - Iron Deficiency Anemia - Labile Hypertension - Myalgia and Myositis - Obesity - Osteoarthritis - Osteopenia Current Medication - Alendronate Sodium 70 MG [...] days, 0 refills Past Medical/Surgical History Reported: care professional, Treatment with TENS unit, Physical therapy, Please [...] Sister Maternal: Arthritis Kidney disease Sororal: Arthritis Care Team - DOMENIC PERRY MD - Primary Care Health Reminders - Assess Tobacco Use satisfied 05/27/2023.
--- OUTSIDE RECORDS SUMMARY | 2024-06-15 16:12 | XMS_ITS | Referral Summary ---
Author Organization [facility] Address [address] [place] [address] Care Team Providers Care Candy Maker Name Role Phone Darius Urbina MD Primary Care Provider [phone] Allergies Active Allergy Reactions Criticality Noted Date Comments Adhesive Tape-Silicones Prochlorperazine Rash Medium Medications celecoxib (CeleBREX) 200 mg capsule take 1 capsule (200MG) by ORAL route every day as needed 30 6 02/04/2012 Active atenolol (TENORMIN) 25 mg tablet 08/07/2017 Active biotin 5 mg capsule Take 1 capsule by mouth. Active ibuprofen (ibuprofen) 200 mg tab/cap Take by mouth every 6 hours. Active LORazepam (ATIVAN) 1 mg tablet Take 1 mg by mouth. Active meloxicam (MOBIC) 15 mg tablet 07/30/2017 Active mirtazapine (REMERON) 30 mg tablet 07/30/2017 Active montelukast (SINGULAIR) 10 mg tablet Take 10 mg by mouth. Active raNITIdine (ZANTAC) 300 mg tablet 08/07/2017 Active traMADol (ULTRAM) 50 mg tablet Take 50 mg by mouth 2 times daily. 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 Gender Identity Not on file Sexual Orientation Not on file Last Filed Vital Signs Vital Sign Reading Time Taken Comments Blood Pressure 165/114 08/26/2017 10:15 AM CDT Pulse 97 08/26/2017 10:15 AM CDT Temperature - - Respiratory Rate - - Oxygen Saturation - - Inhaled Oxygen Concentration - - Weight 97.5 kg (215 lb) 08/26/2017 10:15 AM CDT Height 160 cm (5' 3 ) 08/26/2017 10:15 AM CDT Body Mass Index 38.09 08/26/2017 10:15 AM CDT Plan of Treatment Not on file Insurance MEDICARE [facility] Address: [facility] [address] [place] [address] [facility] Care Teams Candy Maker Relationship Specialty Start Date End Date Darius Urbina MD PCP - General 02/27/12
--- OUTSIDE RECORDS SUMMARY | 2024-06-15 16:12 | XMS_ITS ---
Author Organization [facility] Address [address] [place] [address] Phone Care Team Providers Care Social Welfare Research Worker Name Role Phone DOMENIC PERRY MD Primary Care Provider [phone] Problems Includes: Active, inactive, and resolved Problems All Visits Onset Date Resolved Date Provider Condition S tatus Depression Unknown AFSANEH G DARRIN POLICY ISSUE CLERK-FPA, HOP WEIGHER-BC Active Last Documented On 3 2:10PM ; [facility] Anxiety Disorder Nos Unknown AFSANEH G DARRIN POLICY ISSUE CLERK-FPA, HOP WEIGHER-BC Active Last Documented On 3 2:10PM ; [facility] Osteopenia Unknown AFSANEH G DARRIN POLICY ISSUE CLERK-FPA, HOP WEIGHER-BC Active Last Documented On 3 2:12PM ; [facility] Chronic Kidney Disease Stage 2 Unknown ANTHONY SA G DARRIN POLICY ISSUE CLERK-FPA, HOP WEIGHER-BC Active Last Documented On 3 2:12PM ; [facility] Hyperlipidemia Unknown AFSANEH G DARRIN POLICY ISSUE CLERK-F PA, HOP WEIGHER-BC Active Last Documented On 3 2:12PM ; [facility] Labile Hypertension Unknown AFSANEH G DARRIN A PRN-FPA, HOP WEIGHER-BC Active Last Documented On 3 2:11PM ; [facility] Iron Deficiency Anemia Unknown AFSANEH G KUL P POLICY ISSUE CLERK-FPA, HOP WEIGHER-BC Active Last Documented On 3 2:11PM ; [facility] Myalgia and Myositis Unknown AFSANEH G DARRIN POLICY ISSUE CLERK-FPA, HOP WEIGHER-BC Active Last Documented On 3 2:11PM ; [facility] Obesity Unknown AFSANEH Banda DARRIN POLICY ISSUE CLERK-FPA, HOP WEIGHER-BC Active Last Documented On 3 2:12PM ; [facility] Osteoarthritis Unknown AFSANEH Banda KUL P POLICY ISSUE CLERK-FPA, HOP WEIGHER-BC Active Last Documented On 3 2:11PM ; [facility] Note: multiple joints Plan of Treatment Education and Decision Aids were provided during visit for: Pill Count: Tramadol Dr. Gerard raygoza Last Documented On 4 2:43PM ; [facility] Pill Count: Tramadol [per PC P] Last Documented On 4 9:39AM ; [facility] Pill Count: Tramadol [per PC P] Last Documented On 3 9:46AM ; [facility] Pill Count: Tramadol [per PC P] Last Documented On 3 11:04AM ; [facility] Pill Count: Tramadol [per PC P] Last Documented On 3 3:29PM ; [facility] Assessments Includes: Assessments for all patient encounters Findings Encounter Date Cervical spondylosis PAIN MANAGEMENT FOL LOW UP with AFSANEH Banda DARRIN POLICY ISSUE CLERK-FPA, HOP WEIGHER-BC 08/18/2023 Last Documented On 4 10:16AM ; [facility] Chronic kidney disease, stage 2 PAIN MAN AGEMENT FOLLOW UP with AFSANEH Banda DARRIN POLICY ISSUE CLERK-FPA, HOP WEIGHER-BC 08/18/2023 Last Documented On 4 10:16AM ; [facility] Chronic pain syndrome PAIN MANAGEMENT FO LLOW UP with AFSANEH Veronika DARRIN POLICY ISSUE CLERK-FPA, HOP WEIGHER-BC 08/18/2023 Last Documented On 4 10:16AM ; [facility] Fibromyalgia PAIN MANAGEMENT FOLL OW UP with AFSANEH G DARRIN POLICY ISSUE CLERK-FPA, HOP WEIGHER-BC 08/18/2023 Last Documented On 4 10:16AM ; [facility] Low back pain PAIN MANAGEMENT FOLL OW UP with AFSANEH G DARRIN POLICY ISSUE CLERK-FPA, HOP WEIGHER-BC 08/18/2023 Last Documented On 4 10:16AM ; [facility] Lumbar radiculopathy PAIN MANAGEMENT FOL LOW UP with AFSANEH G DARRIN POLICY ISSUE CLERK-FPA, HOP WEIGHER-BC 08/18/2023 Last Documented On 4 10:16AM ; [facility] Lumbar stenosis PAIN MANAGEMENT FOLL OW UP with AFSANEH G DARRIN POLICY ISSUE CLERK-FPA, HOP WEIGHER-BC 08/18/2023 Last Documented On 4 10:16AM ; [facility] Sacroiliitis PAIN MANAGEMENT FOLL OW UP with AFSANEH G DARRIN POLICY ISSUE CLERK-FPA, HOP WEIGHER-BC 08/18/2023 Last Documented On 4 10:16AM ; [facility] Cervical spondylosis PAIN MANAGEMENT FOL LOW UP with AFSANEH G DARRIN POLICY ISSUE CLERK-FPA, HOP WEIGHER-BC 06/17/2023 Last Documented On 4 3:53PM ; [facility] Chronic kidney disease, stage 2 PAIN MAN AGEMENT FOLLOW UP with AFSANEH G DARRIN POLICY ISSUE CLERK-FPA, HOP WEIGHER-BC 06/17/2023 Last Documented On 4 3:53PM ; [facility] Chronic pain syndrome PAIN MANAGEMENT FO LLOW UP with AFSANEH G DARRIN POLICY ISSUE CLERK-FPA, HOP WEIGHER-BC 06/17/2023 Last Documented On 4 3:53PM ; [facility] Fibromyalgia PAIN MANAGEMENT FOLL OW UP with AFSANEH G DARRIN POLICY ISSUE CLERK-FPA, HOP WEIGHER-BC 06/17/2023 Last Documented On 4 3:53PM ; [facility] Low back pain PAIN MANAGEMENT FOLL OW UP with AFSANEH G DARRIN POLICY ISSUE CLERK-FPA, HOP WEIGHER-BC 06/17/2023 Last Documented On 4 3:53PM ; [facility] Lumbar radiculopathy PAIN MANAGEMENT FOL LOW UP with AFSANEH G DARRIN POLICY ISSUE CLERK-FPA, HOP WEIGHER-BC 06/17/2023 Last Documented On 4 3:53PM ; [facility] Lumbar stenosis PAIN MANAGEMENT FOLL OW UP with AFSANEH G DARRIN POLICY ISSUE CLERK-FPA, HOP WEIGHER-BC 06/17/2023 Last Documented On 4 3:53PM ; [facility] Sacroiliitis PAIN MANAGEMENT FOLL OW UP with AFSANEH G DARRIN POLICY ISSUE CLERK-FPA, HOP WEIGHER-BC 06/17/2023 Last Documented On 4 3:53PM ; [facility] Cervical spondylosis PAIN MANAGEMENT FOL LOW UP with AFSANEH Veronika DARRIN POLICY ISSUE CLERK-FPA, HOP WEIGHER-BC 05/09/2023 Last Documented On 4 10:19AM ; [facility] Chronic kidney disease, stage 2 PAIN MAN AGEMENT FOLLOW UP with AFSANEH Veronika DARRIN POLICY ISSUE CLERK-FPA, HOP WEIGHER-BC 05/09/2023 Last Documented On 4 10:19AM ; [facility] Chronic pain syndrome PAIN MANAGEMENT FO LLOW UP with AFSANEH G DARRIN POLICY ISSUE CLERK-FPA, HOP WEIGHER-BC 05/09/2023 Last Documented On 4 10:19AM ; [facility] Fibromyalgia PAIN MANAGEMENT FOLL OW UP with AFSANEH Veronika DARRIN POLICY ISSUE CLERK-FPA, HOP WEIGHER-BC 05/09/2023 Last Documented On 4 10:19AM ; [facility] Low back pain PAIN MANAGEMENT FOLL OW UP with AFSANEH Veronika DARRIN POLICY ISSUE CLERK-FPA, HOP WEIGHER-BC 05/09/2023 Last Documented On 4 10:19AM ; [facility] Lumbar radiculopathy PAIN MANAGEMENT FOL LOW UP with AFSANEH Veronika DARRIN POLICY ISSUE CLERK-FPA, HOP WEIGHER-BC 05/09/2023 Last Documented On 4 10:19AM ; [facility] Lumbar stenosis PAIN MANAGEMENT FOLL OW UP with AFSANEH Veronika DARRIN POLICY ISSUE CLERK-FPA, HOP WEIGHER-BC 05/09/2023 Last Documented On 4 10:19AM ; [facility] Sacroiliitis PAIN MANAGEMENT FOLL OW UP with AFSANEH G DARRIN POLICY ISSUE CLERK-FPA, HOP WEIGHER-BC 05/09/2023 Last Documented On 4 10:19AM ; [facility] Cervical spondylosis PAIN MANAGEMENT FOL LOW UP with AFSANEH G DARRIN POLICY ISSUE CLERK-FPA, HOP WEIGHER-BC 02/17/2023 Last Documented On 3 10:09AM ; [facility] Chronic kidney disease, stage 2 PAIN MAN AGEMENT FOLLOW UP with AFSANEH G DARRIN POLICY ISSUE CLERK-FPA, HOP WEIGHER-BC 02/17/2023 Last Documented On 3 10:09AM ; [facility] Chronic pain syndrome PAIN MANAGEMENT FO LLOW UP with AFSANEH Veronika DARRIN POLICY ISSUE CLERK-FPA, HOP WEIGHER-BC 02/17/2023 Last Documented On 3 10:09AM ; [facility] Fibromyalgia PAIN MANAGEMENT FOLL OW UP with AFSANEH G DARRIN POLICY ISSUE CLERK-FPA, HOP WEIGHER-BC 02/17/2023 Last Documented On 3 10:09AM ; [facility] Low back pain PAIN MANAGEMENT FOLL OW UP with AFSANEH Veronika DARRIN POLICY ISSUE CLERK-FPA, HOP WEIGHER-BC 02/17/2023 Last Documented On 3 10:09AM ; [facility] Lumbar radiculopathy PAIN MANAGEMENT FOL LOW UP with AFSANEH G DARRIN POLICY ISSUE CLERK-FPA, HOP WEIGHER-BC 02/17/2023 Last Documented On 3 10:09AM ; [facility] Lumbar stenosis PAIN MANAGEMENT FOLL OW UP with AFSANEH G DARRIN POLICY ISSUE CLERK-FPA, HOP WEIGHER-BC 02/17/2023 Last Documented On 3 10:09AM ; [facility] Sacroiliitis PAIN MANAGEMENT FOLL OW UP with AFSANEH G DARRIN POLICY ISSUE CLERK-FPA, HOP WEIGHER-BC 02/17/2023 Last Documented On 3 10:09AM ; [facility] Chronic kidney disease, stage 2 PAIN MAN AGEMENT FOLLOW UP with AFSANEH Veronika DARRIN POLICY ISSUE CLERK-FPA, HOP WEIGHER-BC 01/10/2023 Last Documented On 3 11:30AM ; [facility] Chronic pain syndrome PAIN MANAGEMENT FO LLOW UP with AFSANEH G DARRIN POLICY ISSUE CLERK-FPA, HOP WEIGHER-BC 01/10/2023 Last Documented On 3 11:30AM ; [facility] Fibromyalgia PAIN MANAGEMENT FOLL OW UP with AFSANEH G DARRIN POLICY ISSUE CLERK-FPA, HOP WEIGHER-BC 01/10/2023 Last Documented On 3 11:30AM ; [facility] Low back pain PAIN MANAGEMENT FOLL OW UP with AFSANEH G DARRIN POLICY ISSUE CLERK-FPA, HOP WEIGHER-BC 01/10/2023 Last Documented On 3 11:30AM ; [facility] Lumbar radiculopathy PAIN MANAGEMENT FOL LOW UP with AFSANEH G DARRIN POLICY ISSUE CLERK-FPA, HOP WEIGHER-BC 01/10/2023 Last Documented On 3 11:30AM ; [facility] Lumbar stenosis PAIN MANAGEMENT FOLL OW UP with AFSANEH Veronika DARRIN POLICY ISSUE CLERK-FPA, HOP WEIGHER-BC 01/10/2023 Last Documented On 3 11:30AM ; [facility] Sacroiliitis PAIN MANAGEMENT FOLL OW UP with AFSANEH Veronika DARRIN POLICY ISSUE CLERK-FPA, HOP WEIGHER-BC 01/10/2023 Last Documented On 3 11:30AM ; [facility] Chronic kidney disease, stage 2 PAIN MAN AGEMENT NEW CONSULT with AFSANEH Banda DARRIN POLICY ISSUE CLERK-FPA, HOP WEIGHER-BC 11/26/2022 Last Documented On 3 3:29PM ; [facility] Chronic pain syndrome PAIN MANAGEMENT NE W CONSULT with AFSANEH G DARRIN POLICY ISSUE CLERK-FPA, HOP WEIGHER-BC 11/26/2022 Last Documented On 3 3:29PM ; [facility] Fibromyalgia PAIN MANAGEMENT NEW CONSULT with AFSANEH Veronika DARRIN POLICY ISSUE CLERK-FPA, HOP WEIGHER-BC 11/26/2022 Last Documented On 3 3:29PM ; [facility] Low back pain PAIN MANAGEMENT NEW CONSULT with AFSANEH Veronika DARRIN POLICY ISSUE CLERK-FPA, HOP WEIGHER-BC 11/26/2022 Last Documented On 3 3:29PM ; [facility] Lumbar radiculopathy PAIN MANAGEMENT NEW CONSULT with AFSANEH G DARRIN POLICY ISSUE CLERK-FPA, HOP WEIGHER-BC 11/26/2022 Last Documented On 3 3:29PM ; [facility] Lumbar stenosis PAIN MANAGEMENT NEW CONSULT with AFSANEH Veronika DARRIN POLICY ISSUE CLERK-FPA, HOP WEIGHER-BC 11/26/2022 Last Documented On 3 3:29PM ; [facility] Instructions Includes: Instructions for all patient encounters Education and Decision Aids were provided during visit for: Pill Count: Tramadol Dr. Gerard raygoza Last Documented On 4 2:43PM ; [facility] Pill Count: Tramadol [per PC P] Last Documented On 4 9:39AM ; [facility] Pill Count: Tramadol [per PC P] Last Documented On 3 9:46AM ; [facility] Pill Count: Tramadol [per PC P] Last Documented On 3 11:04AM ; [facility] Pill Count: Tramadol [per PC P] Last Documented On 3 3:29PM ; [facility] Medical Equipment - Implanted Devices Includes: Current and historical Devices No Medical Equipment Recorded Medications Includes: Current and historical Medications Current Medications (continue as prescribed) Methocarbamol 500 MG Oral Tablet 08/18/2023 Provider: LIZABETH BAPTISTE Diagnosis: Other spondylosi s, cervical region One tablet three times a day as needed for neck or low back stiffness Last Documented On 4 10:09AM By AFSANEH BARONE ; [facility] Prevagen 10 MG Oral Capsule 08/18/2023 Provider: Diagnosis: Last Documented On 4 10:09AM By AFSANEH BARONE ; [facility] DULoxetine HCl 60 MG Oral Ca psule Delayed Release Particles 08/01/2023 Provider: LIZABETH BAPTISTE Diagnosis: 1 CAPSULE DAILY AT BEDTIME Last Documented On 4 10:09AM By AFSANEH BARONE ; [facility] Aspirin EC Low Strength 81 MG Oral Tablet Delayed Rele ase 11/26/2022 Provider: Diagnosis: Last Documented On 3 3:27PM By AFSANEH BARONE ; [facility] traMADol HCl 50 MG Oral Tablet 11/26/2022 Provider: Diagnosis: one tablet a day. Last Documented On 3 3:27PM By AFSANEH BARONE ; [facility] Montelukast Sodium 10 MG Oral Tablet 11/26/2022 Prov ider: Diagnosis: Last Documented On 3 3:27PM By AFSANEH BARONE ; [facility] Verapamil HCl ER 240 MG Oral Capsule Extended Re lease 24 Hour 11/26/2022 Provider: Diagnosis: Last Documented On 3 3:27PM By AFSANEH BARONE ; [facility] Ativan 0.5 MG Oral Tablet 11/26/2022 Provider: Diagnosis: 2 tablets at bedtime. Last Documented On 3 3:27PM By AFSANEH BARONE ; [facility] Bariatric Multivitamins/Iron Oral Capsule 11/26/2022 Provider: Diagnosis: Last Documented On 3 3:27PM By AFSANEH BARONE ; [facility] Pravastatin Sodium 10 MG Oral Tablet 11/26/2022 Prov ider: Diagnosis: Last Documented On 3 3:27PM By AFSANEH BARONE ; [facility] Tylenol Extra Strength 500 MG Oral Tablet 11/26/2022 Provider: Diagnosis: Last Documented On 3 3:27PM By AFSANEH BARONE ; [facility] Alendronate Sodium 70 MG Oral Tablet 11/26/2022 Prov ider: Diagnosis: 1 weekly. Last Documented On 3 3:27PM By AFSANEH BARONE ; [facility] Carvedilol 12.5 MG Oral Tablet 11/26/2022 Provider: Diagnosis: Last Documented On 3 3:27PM By AFSANEH BARONE ; [facility] Past Medications on file Nystatin [id number] UNIT/GM External Cream 08/18/2023 - 09/17/2023 Provider: LIZABETH BAPTISTE Diagnosis: Candidiasis, unspecified apply to buttocks 2 times daily Last Documented On 4 10:21AM By AFSANEH BARONE ; [facility] Fluconazole 100 MG Oral Tablet 08/18/2023 - 08/28/2023 Provider: LIZABETH BAPTISTE Diagnosis: Candidiasis, unspecified take 1 tablet today and then repeat in 1 week Last Documented On 4 10:21AM By AFSANEH BARONE ; [facility] DULoxetine HCl 60 MG Oral Capsule Delayed Release Particles 05/14/2023 - 08/01/2023 Provider: AFSANEH HIGGINS HOP WEIGHER-SIERRA Diagnosis: 1 capsule daily at bedtime Last Documented On 4 10:41AM By AFSANEH BARONE ; [facility] DULoxetine HCl 30 MG Oral Ca psule Delayed Release Particles 11/26/2022 - 05/14/2023 Provider: Diagnosis: Last Documented On 4 12:21PM By AFSANEH BARONE ; [facility] Medications Administered Includes: Administered Medications in patient's chart No Administered Medications Recorded Vital Signs Includes: Vital Signs from 06/16/2023 through 06/15/2024 Vital Name 08/18/2023 09:49A 06/17/2023 03: 05P Blood Pressure Sitting R 114/70 120/74 BP Cuff Size Regular Regular Pulse Rate-Sitting (bpm) 77 96 Height (in) 65 65 Weight (lb) 191 194 Body Mass Index 31.8 32.3 Body Surface Area 1.9 2 Pain Level 5 3 Oxygen Saturation (%) 99 98 Temp-Axillary (F) 95.9 Last Documented: On 08/18/2023 9:51AM ; [facility] On 06/17/2023 3:10PM ; [facility] Results Includes: Results from 06/16/2023 through 06/15/2024 No Results Recorded For Specified Dates History of Present Illness History of Present Illness not supported for this document type No History of Present Illness Recorded Social History Description Last Updated 11/26/2022 Last Documented On 3 3:29PM ; [facility] Tobacco non-user 11/26/2022 Last Documented On 3 3:29PM ; [facility] Difficulty walking 11/26/2022 Last Documented On 3 3:29PM ; [facility] No consumption of alcohol 11/26/2022 Last Documented On 3 3:29PM ; [facility] Not using drugs 11/26/2022 Last Documented On 3 3:29PM ; [facility] Smoking Status Unknown Procedures and Surgical History Surgical History Last Updated History of cholecystectomy 11/26/2022 Last Documented On 3 3:29PM ; [facility] History of hysterectomy 11/26/2022 Last Documented On 3 3:29PM ; [facility] History of Primary Knee Arthroplasty Rig ht 11/26/2022 Last Documented On 3 3:29PM ; [facility] Prior surgery Gatric Lap Band 11/26/2022 Last Documented On 3 3:29PM ; [facility] No Pacemaker 11/26/2022 Last Documented On 3 3:29PM ; [facility] Medical History Includes: Medical History in patient's chart Description Last Updated Has had a fall in the last 12 months. On Mothers day 08/18/2023 Last Documented On 4 10:16AM ; [facility] Has a fear of falling. 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 Last Documented On 3 3:29PM ; [facility] CT/MRI Back legs 11/26/2022 Last Documented On 3 3:29PM ; [facility] Exposure to a lot of bright sunlight 02/2023 Last Documented On 3 3:29PM ; [facility] Moderate to severe pain 11/26/2022 Last Documented On 3 3:29PM ; [facility] No Pain Pump 11/26/2022 Last Documented On 3 3:29PM ; [facility] No Spinal cord stimulator 11/26/2022 Last Documented On 3 3:29PM ; [facility] Physical therapy 11/26/2022 Last Documented On 3 3:29PM ; [facility] Please list all illnesses/co nditions you have been diagnosed with: Colon cancer. depression anxietytia in right eyearthritis bladder problems 11/26/2022 Last Documented On 3 3:29PM ; [facility] Please list all surgeries: Sleeve weight loss. 2011colon cancer. 1988-90 11/26/2022 Last Documented On 3 3:29PM ; [facility] Treatment with TENS unit 11/26/2022 Last Documented On 3 3:29PM ; [facility] Ultrasound Legs 11/26/2022 Last Documented On 3 3:29PM ; [facility] X-rays Legs. hips 11/26/2022 Last Documented On 3 3:29PM ; [facility] Family History Includes: Family History in patient's chart Description Last Updated Family history of diabetes mellitus Sist er 11/26/2022 Last Documented On 3 3:29PM ; [facility] Father Dementia 11/26/2022 Last Documented On 3 3:29PM ; [facility] Mother CVA ~OA ~RA 11/26/2022 Last Documented On 3 3:29PM ; [facility] Family history of Arthritis 11/26/2022 Last Documented On 3 3:29PM ; [facility] Maternal history of Arthritis 11/26/2022 Last Documented On 3 3:29PM ; [facility] Maternal history of family history of ki dney disease 11/26/2022 Last Documented On 3 3:29PM ; [facility] Sororal history of Arthritis 11/26/2022 Last Documented On 3 3:29PM ; [facility] Review of Systems Review of Systems not supported for this document type No Review of Systems Recorded Mental Status No Mental Status Recorded Functional Status No Functional Status Recorded Physical Exam Physical Exam not supported for this document type No Physical Exam Recorded Allergies Includes: Active, inactive, and resolved Allergies Substance Type Reaction Onset Date Resolved Date Statu s Adhesive Tape Allergy 11/26/2022 Activ e Last Documented On 4 9:45AM ; [facility] Encounters Includes: Encounters from 06/16/2023 through 06/15/2024 Encounter Provider Location Date Check-In Time Check-Out Time Diagnosis PAIN MANAGEMENT FOLLOW UP AFSANEH CLIFFORD POLICY ISSUE CLERK-FPA, HOP WEIGHER-BC [facility] 08/18/19 24 9:44AM 10:11AM Cervical Spondylosis,S thuy Stenosis Lumbar,Chroni c Pain Syndrome,Sacr oiliitis,Lumb ar Radiculopathy ,Chronic Kidney Disease Stage 2,Fibromyalgi a,Dorsopathy Low Back Pain PAIN MANAGEMENT FOLLOW UP AFSANEH Banda DARRIN OSORIO, [facility] 06/17/19 24 2:42PM 3:20PM Cervical Spondylosis,S thuy Stenosis Lumbar,Chroni c Pain Syndrome,Sacr oiliitis,Lumb ar Radiculopathy ,Chronic Kidney Disease Stage 2,Fibromyalgi a,Dorsopathy Low Back Pain Insurance Includes: Active Insurance Policies Plan Name Member ID Group # Subscriber Relationship Effect tena Dates 1 - MEDICARE PART A CLAIMS/NGS [id number] ANA BASS Self 03/17/2011 - Unknown 2 - [employer] [id number] PLAN F ANA BASS Self 05/15/2017 - Unknown Clinical Notes Includes: Signed Clinical Notes starting from 04/05/2022 * Progress note Date Encounter Last Documented by 08/18/2023 PAIN MANAGEMENT FOLLOW UP Last d ocumented on 08/18/2023; 10:16 AM, AFSANEH Veronika DARRIN OSORIO, [facility]; [facility] Active Problems & Conditions - Anxiety Disorder Nos - Chronic Kidney Disease Stage 2 - Depression - Hyperlipidemia - Iron Deficiency Anemia - Labile Hypertension - Myalgia and Myositis - Obesity - Osteoarthritis - Osteopenia Chief Complaint The Chief Complaint is: 2 month follow up on pain. History of Present Illness PHQ-9 Score: 8 [...] Mar 25- May 09 cervical spine [not helpful]; L SI injection 05/22/23 [60% improvement] ANA BASS is a 78 year old female. - Allergy list reviewed - Problem list reviewed - Medication reconciliation performed - Medication list reviewed - Prescription Drug Monitoring Program website checked. 05/05/2023 - How much of the medication are [...] - Last drug screen appropriate 11/26/2022 Discussion: Routine FU neck and low back pain. States she continues to benefit from the lumbar epidural and has no right sided back pain. Her L side low back pain continues to be better than what it was previously after SI joint injection but doesn't feel like she is getting as much relief as she was before. SHe has noted some back spasms since a fall several weeks ago. She fell while helping her grandson carry a dresser. She saw her PCP a few days later and pain is much better now other than the spasms. Also has a rash in the buttocks area that she is embarrassed to talk w/ her PCP about and asks me to look at it. Feels moist all the time with yellow/white film and noted itching. on exam Noted reddened skin, moist, thick white film to gluteal cleft. FIRST VISIT 11/26/22: Patient referred by her [...] numbness. Denies any motor weakness. 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 and was given the procedure without [...] MG Oral Capsule Delayed Release Particles 1 CAPSULE DAILY AT BEDTIME, 90 days, 0 refills - Montelukast Sodium 10 MG Oral Tablet One tablet daily 0 days, 0 refills - Pravastatin Sodium 10 MG Oral Tablet One tablet daily 0 days, 0 refills - Prevagen 10 MG Oral Capsule One tablet daily 0 days, 0 refills - traMADol HCl 50 MG Oral Tablet One tablet daily one tablet a day., 0 days, 0 refills - Tylenol Extra Strength 500 MG Oral Tablet One tablet daily 0 days, 0 refills - Verapamil HCl ER 240 MG Oral Capsule Extended Release 24 Hour 1 capsule daily 0 days, 0 refills Past Medical/Surgical History 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 depression anxietytia in right eyearthritis bladder problems, and Please list all surgeries: Sleeve weight loss. 2010con cancer. . Medical: Moderate to severe pain. No Spinal cord stimulator and no Pain Pump. Surgical / Procedural: Prior surgery Gatric Lap Band. No Pacemaker. Tests: X-rays Legs. hips, CT/MRI Back legs, and Ultrasound Legs. Environmental Exposure: Exposure to a lot of bright sunlight. Physical Trauma: Has had a fall in the last 12 months. On day and Has a fear of falling. Diagnoses: Cancer [...] than noted. Physical Findings - Vitals taken 08/18/2023 09:49 am BP-Sitting R 114/70 mmHg BP Cuff Size Regular Pulse Rate-Sitting 77 bpm Height 65 in Weight 191 lbs Body Mass Index 31.8 kg/m2 Body Surface Area 1.9 m2 Pain Level 5 Pain Level Note Lumbar and left shoulder Oxygen Saturation 99 % Musculoskeletal System: General/bilateral: [...] Affect normal. No pain behaviors. Skin: Normal. [place], warm, dry. Tests Educational Testing: Questionnaires PHQ-9: [...] entries. - Clinical summary provided to patient. Discussed FU 2 months and as needed. Consider MBB for cervical spine and lumbar spine. Can repeat SI joint and TFESI as needed. Requesting CD images Lumbar spine [?MILD] Plan StartCited - Candidiasis, unspecified Fluconazole 100 MG tablet take 1 tablet today and then repeat in 1 week, 10 days, 0 refills Nystatin 400343 UNIT/GM gram apply to buttocks 2 times daily, 30 days, 0 refills EndCited StartCited - Other PHY ORDER/COMMENT please request CD images of MRI lumbar spine from [place] EndCited StartCited - Other spondylosis, cervical region Methocarbamol 500 MG tablet One tablet three times a day as needed for neck or low back stiffness, 30 days, 0 refills EndCited Patient was seen today for 4 [...] notes, laboratory data, patient self-report questionnaires, and [place] prescription monitoring database entries. Significant social barriers [...] and for adult impression and score five; [20644] Established outpatient, medically appropriate H&P, moderate level decision making, 30+ minutes. A total of [ 15] minutes [...] but may be subject to typographical or ordnance engineer errors. Verify all diagnoses, medications, dosages, and patient instructions with patient and/or the originator of this document. Care Team - DOMENIC PERRY MD - Primary Care Health Reminders - Assess Blood Pressure satisfied 08/18/2023. - Assess BMI satisfied 08/18/2023. - Assess Screening for Fall Risk satisfied 08/18/2023. - Assess Tobacco Use satisfied 08/18/2023. - Depression Screening satisfied 08/18/2023. * Progress note Date Encounter Last Documented by 06/17/2023 PAIN MANAGEMENT FOLLOW UP Last d ocumented on 06/17/2023; 3:53 PM, AFSANEH CLIFFORD APRN-FPA, HOP WEIGHER-BC; [facility] Active Problems & Conditions - [...] pain last for 6 weeks in summer of 2022 and continues her home exercise program. She [...] numbness. Denies any motor weakness. 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 depression anxietytia in right eyearthritis bladder problems, and Please list all surgeries: Sleeve weight loss. 2010palisade cancer. . Medical: Moderate to severe pain. [...] Affect normal. No pain behaviors. Skin: Normal. [place], warm, dry. Tests Educational Testing: Questionnaires PHQ-9: [...] notes, laboratory data, patient self-report questionnaires, and [place] prescription monitoring database entries. Significant social barriers [...] and for adult impression and score five; [62436] Established outpatient, medically appropriate H&P, moderate level [...] but may be subject to typographical or ordnance engineer errors. Verify all diagnoses, medications, dosages, and [...]
--- OUTSIDE RECORDS SUMMARY | 2024-06-15 16:12 | XMS_ITS | CONTINUITY OF CARE DOCUMENT ---
Author Name [facility]laclaireheaven Address Unknown Organization [facility] Address [address] [place] [address] Phone [phone] Care Team Providers Care Base Draw Operator Name Role Phone Jose SKY, Isidoro Unavailable [phone] DOMENIC PERRY MD Unavailable DOMENIC PERRY MD Unavailable INSURANCE PROVIDERS Payer name Policy type / Coverage type [place] red constitution party ID [employer] insurance [employer] [id number] [place] [employer] Medicare [id number]
--- OUTSIDE RECORDS SUMMARY | 2024-06-15 16:12 | XMS_ITS | Clinical Summary ---
Author Organization [facility] Address [address] [place] [address] Phone Care Team Providers Care Outside Sales Account Executive Name Role Phone DOMENIC PERRY MD Primary Care Provider [phone] Reason for Visit and Chief Complaint The Chief Complaint is: 2 month follow up on pain Problems Includes: Problems addressed during this encounter and other active Problems Current Visit Onset Date Resolved Date Provider Conditio n Status Chronic Kidney Disease Stage 2 Unknown AFSANEH Banda DARRIN COMMUNICATION SPECIALIST-FPA, ASSISTANT BUYER-BC Active Last Documented On 3 2:12PM ; [facility] Past Visits Onset Date Resolved Date Provider Condition Status Depression Unknown AFSANEH Banda DARRIN COMMUNICATION SPECIALIST-FPA, ASSISTANT BUYER-BC Active Last Documented On 3 2:10PM ; [facility] Anxiety Disorder Nos Unknown AFSANEH Banda DARRIN COMMUNICATION SPECIALIST-FPA, ASSISTANT BUYER-BC Active Last Documented On 3 2:10PM ; [facility] Osteopenia Unknown AFSANEH G DARRIN COMMUNICATION SPECIALIST-FPA, ASSISTANT BUYER-BC Active Last Documented On 3 2:12PM ; [facility] Hyperlipidemia Unknown AFSANEH Banda DARRIN COMMUNICATION SPECIALIST-F PA, ASSISTANT BUYER-BC Active Last Documented On 3 2:12PM ; [facility] Labile Hypertension Unknown AFSANEH G DARRIN A PRN-FPA, ASSISTANT BUYER-BC Active Last Documented On 3 2:11PM ; [facility] Iron Deficiency Anemia Unknown AFSANEH Veronika KUL P COMMUNICATION SPECIALIST-FPA, ASSISTANT BUYER-BC Active Last Documented On 3 2:11PM ; [facility] Myalgia and Myositis Unknown AFSANEH CLIFFORD COMMUNICATION SPECIALIST-FPA, ASSISTANT BUYER-BC Active Last Documented On 3 2:11PM ; [facility] Obesity Unknown AFSANEH MARQUEZLP COMMUNICATION SPECIALIST-FPA, ASSISTANT BUYER-BC Active Last Documented On 3 2:12PM ; [facility] Osteoarthritis Unknown AFSANEH MARQUEZL P COMMUNICATION SPECIALIST-FPA, ASSISTANT BUYER-BC Active Last Documented On 3 2:11PM ; [facility] Note: multiple joints Plan of [...] of today's visit. - Last Documented On 08/18/2023 10:16AM ; [facility] Assessments Includes: Assessments from this encounter Findings - [N18.2 - Chronic kidney disease, stage 2 (mild)] Chronic kidney disease, stage 2 - Last Documented On 08/18/2023 10:16AM ; [facility] - [M46.1 - Sacroiliitis, not elsewhere classified] Sacroiliitis - Last Documented On 08/18/2023 10:16AM ; [facility] - [M47.892 - Other spondylosis, cervical region] Cervical spondylosis - Last Documented On 08/18/2023 10:16AM ; [facility] - [M54.50 - Low back pain, unspecified] Low back pain - Last Documented On 08/18/2023 10:16AM ; [facility] - [M48.061 - Spinal stenosis, lumbar region without neurogenic claudication] Lumbar stenosis - Last Documented On 08/18/2023 10:16AM ; [facility] - [M54.16 - Radiculopathy, lumbar region] Lumbar radiculopathy - Last Documented On 08/18/2023 10:16AM ; [facility] - [M79.7 - Fibromyalgia] Fibromyalgia - Last Documented On 08/18/2023 10:16AM ; [facility] - [G89.4 - Chronic pain syndrome] Chronic pain syndrome - Last Documented On 08/18/2023 10:16AM ; [facility] Medical Equipment - Implanted Devices Includes: Current Devices No Medical Equipment Recorded Medications Includes: Medications discussed during this encounter and other current Medications New / Renewed during this visit LIZABETH BAPTISTE on 08/18/2023 Nystatin [id number] UNIT/GM External Cream Provider: LIZABETH VASQUEZ 30 day supply: 30 gram, 0 refills Diagnosis: Candidiasis, unspecified apply to buttocks 2 times daily Pharmacy: [facility], [id number] - Last Documented On 4 10:21AM By AFSANEH BARONE ; [facility] Fluconazole 100 MG Oral Tablet Provider: LIZABETH BAPTISTE 10 day supply: 2 tablet, 0 refills Diagnosis: Candidiasis, unspecified take 1 tablet today and then repeat in 1 week Pharm[place]: [place], [id number] - Last Documented On 4 10:21AM By AFSANEH BARONE ; [facility] Methocarbamol 500 MG Oral Tablet Provider: AFSANEH OSORIO ASSISTANT BUYERHENOK 30 day supply: 90 tablet, 0 refills Diagnosis: Other spondylosis, cervical region One tablet three times a day as needed for neck or low back stiffness Pharmacy: [facility], [id number] - Last Documented On 4 10:09AM By AFSANEH BARONE ; [facility] Current Medications (continue as prescribed) Prevagen 10 MG Oral Capsule 08/18/2023 Provider: Diagnosis: Last Documented On 4 10:09AM By AFSANEH BARONE ; [facility] DULoxetine HCl 60 MG Oral Ca psule Delayed Release Particles 08/01/2023 Provider: CANDELARIA BAPTISTE Diagnosis: 1 CAPSULE DAILY AT BEDTIME Last Documented On 4 10:09AM By AFSANEH BARNESPWILLIE ; [facility] Aspirin EC Low Strength 81 MG Oral Tablet Delayed Rele ase 11/26/2022 Provider: Diagnosis: Last Documented On 3 3:27PM By AFSANEH BARONE ; [facility] traMADol HCl 50 MG Oral Tablet 11/26/2022 Provider: Diagnosis: one tablet a day. Last Documented On 3 3:27PM By [facility]H [facility] ; [facility] Montelukast Sodium 10 MG Oral Tablet 11/26/2022 Prov ider: Diagnosis: Last Documented On 3 3:27PM By AFSANEH BARONE ; [facility] Verapamil HCl ER 240 MG Oral Capsule Extended Re lease 24 Hour 11/26/2022 Provider: Diagnosis: Last Documented On 3 3:27PM By AFSANEH BARONE ; [facility] Ativan 0.5 MG Oral Tablet 11/26/2022 Provider: Diagnosis: 2 tablets at bedtime. Last Documented On 3 3:27PM By AFSANEH BARONE ; [facility] Bariatric Multivitamins/Iron Oral Capsule 11/26/2022 Provider: Diagnosis: Last Documented On 3 3:27PM By AFSANEH BARONE ; [facility] Pravastatin Sodium 10 MG Oral Tablet 11/26/2022 Prov ider: Diagnosis: Last Documented On 3 3:27PM By AFSANEH BARONE ; [facility] Tylenol Extra Strength 500 MG Oral Tablet 11/26/2022 Provider: Diagnosis: Last Documented On 3 3:27PM By AFSANEH BARONE ; [facility] Alendronate Sodium 70 MG Oral Tablet 11/26/2022 Prov ider: Diagnosis: 1 weekly. Last Documented On 3 3:27PM By AFSANEH BARONE ; [facility] Carvedilol 12.5 MG Oral Tablet 11/26/2022 Provider: Diagnosis: Last Documented On 3 3:27PM By AFSANEH YU- ; [facility] Medications Administered Includes: Administered Medications from this encounter No Administered Medications Recorded Vital Signs Includes: Vital Signs from this encounter Vital Name 08/18/2023 09:49A Blood Pressure Sitting R 114/70 BP Cuff Size Regular Pulse Rate-Sitting (bpm) 77 Height (in) 65 Weight (lb) 191 Body Mass Index 31.8 Body Surface Area 1.9 Pain Level 5 Oxygen Saturation (%) 99 Last Documented: On 08/18/2023 9:51AM ; [facility] Results Includes: Results discussed during this encounter [...] PT Mar 25-May 09 cervical spine [not helpful]; L SI [...] numbness. Denies any motor weakness. 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 She understands she needs a grab driver and was given the procedure without [...] Last Updated 11/26/2022 Last Documented On 4 9:44AM ; [facility] Tobacco non-user 11/26/2022 Last Documented On 4 9:44AM ; [facility] Difficulty walking 11/26/2022 Last Documented On 4 9:44AM ; [facility] No consumption of alcohol 11/26/2022 Last Documented On 4 9:44AM ; [facility] Not using drugs 11/26/2022 Last Documented On 4 9:44AM ; [facility] Smoking Status Unknown Procedures and Surgical History Includes: Procedures from this encounter Procedures Code Diagnosis Performing Provider Service L ocation Service Date use of tobacco assessment performed 1000F Last Documented On 4 9:44AM ; [facility] patient screened for future fall risk: documentation of any fall with injury in past year 1100F Last Documented On 4 9:44AM ; [facility] review of medications documented 1160F Last Documented On 4 9:44AM ; [facility] screening for adult depression: impressi on and score five Last Documented On 4 9:44AM ; [facility] standardized depression screening: posit tena for symptoms Last Documented On 4 9:44AM ; [facility] Reviewed & agreed to staff entries. Last Documented On 4 9:44AM ; [facility] Clinical summary provided to patient Last Documented On 4 9:44AM ; [facility] SOAPP-R: total score 27 Last Documented On 4 9:44AM ; [facility] Surgical History Last Updated History of cholecystectomy 11/26/2022 Last Documented On 4 9:44AM ; [facility] History of hysterectomy 11/26/2022 Last Documented On 4 9:44AM ; [facility] History of Primary Knee Arthroplasty Rig ht 11/26/2022 Last Documented On 4 9:44AM ; [facility] Prior surgery Gatric Lap Band 11/26/2022 Last Documented On 4 9:44AM ; [facility] No Pacemaker 11/26/2022 Last Documented On 4 9:44AM ; [facility] Medical History Includes: Medical History addressed during this encounter Description Last Updated Has had a fall in the last 12 months. On Mothers day 08/18/2023 Last Documented On 4 10:16AM ; [facility] Has a fear of falling. 05/09/2023 Last Documented On 4 9:44AM ; [facility] History of cancer Colon w/ Hemicolectomy in 40's 11/26/2022 Last Documented On 4 9:44AM ; [facility] manager care management 11/26/2022 Last Documented On 4 9:44AM ; [facility] CT/MRI Back legs 11/26/2022 Last Documented On 4 9:44AM ; [facility] Exposure to a lot of bright sunlight 02/2023 Last Documented On 4 9:44AM ; [facility] Moderate to severe pain 11/26/2022 Last Documented On 4 9:44AM ; [facility] No Pain Pump 11/26/2022 Last Documented On 4 9:44AM ; [facility] No Spinal cord stimulator 11/26/2022 Last Documented On 4 9:44AM ; [facility] Physical therapy 11/26/2022 Last Documented On 4 9:44AM ; [facility] Please list all illnesses/co nditions you have been diagnosed with: Colon cancer. depression anxietytia in right eyearthritis bladder problems 11/26/2022 Last Documented On 4 9:44AM ; [facility] Please list all surgeries: Sleeve weight loss. 2011colon cancer. 11/26/2022 Last Documented On 4 9:44AM ; [facility] Treatment with TENS unit 11/26/2022 Last Documented On 4 9:44AM ; [facility] Ultrasound Legs 11/26/2022 Last Documented On 4 9:44AM ; [facility] X-rays Legs. hips 11/26/2022 Last Documented On 4 9:44AM ; [facility] Family History Includes: Family History addressed during this encounter Description Last Updated Family history of diabetes mellitus Sist er 11/26/2022 Last Documented On 4 9:44AM ; [facility] Father Dementia 11/26/2022 Last Documented On 4 9:44AM ; [facility] Mother CVA ~OA ~RA 11/26/2022 Last Documented On 4 9:44AM ; [facility] Family history of Arthritis 11/26/2022 Last Documented On 4 9:44AM ; [facility] Maternal history of Arthritis 11/26/2022 Last Documented On 4 9:44AM ; [facility] Maternal history of family history of ki dney disease 11/26/2022 Last Documented On 4 9:44AM ; [facility] Sororal history of Arthritis 11/26/2022 Last Documented On 4 9:44AM ; [facility] Review of Systems Includes: Review of Systems [...] e Last Documented On 4 9:45AM ; [facility] Encounters Encounter Provider Location Date Check-In Time Check-Out Time Diagnosis PAIN MANAGEMENT FOLLOW UP AFSANEH CLIFFORD COMMUNICATION SPECIALIST-FPA, ASSISTANT BUYER-BC [facility] 08/18/19 24 9:44AM 10:11AM Cervical Spondylosis,S thuy Stenosis Lumbar,Chroni c Pain Syndrome,Sacr oiliitis,Lumb ar Radiculopathy ,Chronic Kidney Disease Stage 2,Fibromyalgi a,Dorsopathy Low Back Pain Insurance Includes: Active Insurance Policies Plan Name Member ID Group # Subscriber Relationship Effect tena Dates 1 - MEDICARE PART A CLAIMS/NGS [id number] ANA BASS Self 03/17/2011 - Unknown 2 - [employer] [id number] PLAN F ANA BASS Self 05/15/2017 - Unknown Clinical Notes Includes: Clinical Notes from this encounter * Progress note Date Encounter Last Documented by 08/18/2023 PAIN MANAGEMENT FOLLOW UP Last d ocumented on 08/18/2023; 10:16 AM, AFSANEH CLIFFORD APRN-FPA, ASSISTANT BUYER-BC; [facility] Active Problems & Conditions - [...] numbness. Denies any motor weakness. 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 depression anxietytia in right eyearthritis bladder problems, and Please list all surgeries: Sleeve weight loss. 2010colon cancer. . Medical: Moderate to severe pain. [...] Affect normal. No pain behaviors. Skin: Normal. Smock, warm, dry. Tests Educational Testing: Questionnaires PHQ-9: [...] 1 week, 10 days, 0 refills Nystatin [id number] UNIT/GM gram apply to buttocks 2 times daily, 30 days, 0 refills EndCited StartCited - Other PHY ORDER/COMMENT please request CD images of MRI lumbar spine from [place] EndCited StartCited - Other spondylosis, cervical region [...] notes, laboratory data, patient self-report questionnaires, and [place] prescription monitoring database entries. Significant social barriers [...] and for adult impression and score five; [56884] Established outpatient, medically appropriate H&P, moderate level [...] but may be subject to typographical or industrial staff nurse errors. Verify all diagnoses, medications, dosages, and [...]
--- OUTSIDE RECORDS SUMMARY | 2024-06-15 16:12 | XMS_ITS | Encounter Summary ---
Author Organization [facility] Address [address] [place] [address] Care Team Providers Care Binding Machine Operator Name Role Phone Darius Urbina MD Primary Care Provider [phone] Encounter Details Date Type Department Care Team (Late st Contact Info) Description 01/17/[address] [facility] [address] [place], [place] [id number] Kirit Grace MD 3 [facility] 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 providers found PCP: MD Namita NAVARRETE Mele Trivedi is an 78-year-old female. Reason for Admission: * No active hospital problems. * HPI: Urge incontinence. Successful trial of SNS Past Medical History: Diagnosis Date Colon cancer (CMS/HCC HHS/HCC) s/p resection Depression High cholesterol History of blood transfusion with colon cancer Hypertension Irregular heartbeat Obesity, unspecified Sciatica left TIA (transient ischemic attack) 2020 affected right eye- only has peripheral vision in that eye Wears dentures Allergies: Allergies Allergen Reactions Tape Unknown Adhesive- red and blisters Social History Tobacco Use Smoking status: Never Smokeless tobacco: Never Substance Use Topics Alcohol use: Not Currently Comment: seldom Past Surgical History: Procedure Laterality Date COLON SURGERY colon resection- GASTRIC SLEEVE PROCEDURE--P after lap band LAP ADJUSTABLE GASTRIC BAND around 2012 TOTAL KNEE ARTHROPLASTY Right Family History Problem Relation Name Age of Onset Arthritis Mother Kidney Disease Mother Anesthesia problems Mother heart stopped- denies mal. hyperthermia Diabetes Sister PONV Sister Mental Health Sister Travel Exposure: Current Outpatient Medications on File Prior to Visit Medication Sig acetaminophen (TYLENOL) 500 MG tablet Take 1 tablet (500 mg total) by mouth daily. alendronate (FOSAMAX) 70 MG tablet Take 1 tablet (70 mg total) by mouth every 7 days. mondays aspirin 81 MG chewable tablet Chew 1 tablet (81 mg total) by mouth daily. biotin 300 MCG Tab Take 1 tablet (300 mcg total) by mouth daily. diphenhydrAMINE-APAP (TYLENOL PM) 25-500 MG Tab tablet Take 2 tablets by mouth nightly at bedtime. DULoxetine (CYMBALTA) 60 MG capsule Take 1 capsule (60 mg total) by mouth daily. LORazepam (ATIVAN) 0.5 MG tablet Take 2 tablets (1 mg total) by mouth daily. methocarbamol (ROBAXIN) 500 MG tablet Take 1 tablet (500 mg total) by mouth 3 (three) times daily as needed. montelukast (SINGULAIR) 10 MG tablet Take 1 tablet (10 mg total) by mouth daily. Multiple Vitamins-Minerals (MULTIVITAMIN ADULTS OR) Take 1 tablet by mouth daily. bariatric pravastatin (PRAVACHOL) 10 MG tablet Take 1 tablet (10 mg total) by mouth daily. traMADol (ULTRAM) 50 MG tablet Take 1 tablet (50 mg total) by mouth daily. verapamil (CALAN) 120 MG tablet Take 2 tablets (240 mg total) by mouth daily. No current facility-administered medications on file prior to visit. There were no vitals taken for this visit. ROS neg Physical Exam NAD A+O x2 Assessment: UUI Plan: InterStim implant KIRIT GRACE MD 01/17/2024 documented in this encounter Plan of Treatment Not on file documented as of this encounter Visit Diagnoses Not on filedocumented in this encounter Care Teams Binding Machine Operator Relationship Specialty Start Date End Date Darius Urbina MD [address] [place] [address] PCP - General INTERNAL MEDICINE 01/14/24 documented as of this encounter
--- OUTSIDE RECORDS SUMMARY | 2024-06-15 16:12 | XMS_ITS | Clinical Summary ---
Author Organization [facility] Address [address] [place] [address] Care Team Providers Care Supervisor Production Managing Name Role Phone Darius Urbina MD Primary Care Provider [phone] Carmen Beckman RN Unavailable [phone] Source Comments [facility],non-owned Affiliates and Associated Physician Practices is amultiple site organization consisting of ambulatory clinics and hospital sitesin [place], [place], [place] and [place]. This disclosure is being madepursuant to the Care Everywhere program and may not contain all information available regarding this patient. Last updated 17.[facility] Allergies No known active allergies Medications * Be aware that medications may not be up to date on this document. Alwaysverify current medications with the patient. Medication Sig Dispensed Refills Start Date End Date Status BIOTIN 5000 PO Take 1 Cap by mouth at bedtime Active LORazepam (ATIVAN) 1 MG tablet Take 1 mg by mouth nightly as needed for Anxiety Active traMADol (ULTRAM) 50 MG tablet Take 50 mg by mouth 2 times daily as needed for Pain Active raNITIdine (ZANTAC) 300 MG tablet Take 300 mg by mouth once daily Active atenolol (TENORMIN) 50 MG tablet Take 25 mg by mouth once daily Active montelukast (SINGULAIR) 10 MG tablet Take 10 mg by mouth once daily Active aspirin (ASPIRIN) 81 MG tablet Take 81 mg by mouth once daily Active atorvastatin (LIPITOR) 20 MG tablet Take 20 mg by mouth at bedtime Active verapamil (ISOPTIN) 120 MG tablet Take 120 mg by mouth every 8 hours Active clopidogrel (PLAVIX) 75 MG tablet Take 75 mg by mouth once daily Active alendronate (FOSAMAX) 5 MG tablet Take 5 mg by mouth daily before breakfast Active vitamin D3 (CHOLECALCIFEROL) 1000 UNITS tablet Take 5,000 Units by mouth once daily Active Multiple Vitamins-Minerals (BARIATRIC MULTIVITAMINS/IRON PO) Active Magnesium 400 MG Active Active Problems Problem Noted Date Diagnosed Date Hypertension 11/23/2014 Morbid obesity 10/14/2014 Gastric prolapse 06/23/2014 Complication of gastric banding 06/23/2014 Family History Medical History Relation Name Comments Arthritis - Osteo Mother Arthritis - Rheumatoid Mother Seizures Sister 1 CAD (Coronary Artery Disease) Sister 2 Diabetes Sister 3 Arthritis - Rheumatoid Sister 4 Relation Name Status Comments Mother Sister 1 Sister 2 Sister 3 Sister 4 Social History Tobacco Use Types Packs/Day Years Used Date Smoking Tobacco: Never Smokeless Tobacco: Never Tobacco Cessation:Counseling Given: Yes Alcohol Use Standard Drinks/Week Comments No 0 (1 standard drink = 0.6 oz pur e alcohol) Sex and Gender Information Value Date Recorded Sex Assigned at Not on file Gender Identity Not on file Sexual Orientation Not on file Last Filed Vital Signs Vital Sign Reading Time Taken Comments Blood Pressure 131/70 12/15/2017 12:45 PM CDT Pulse 84 12/15/2017 11:00 AM CDT Temperature 36.6 C (97.9 F) 12/15/2017 8:16 AM CDT Respiratory Rate 16 12/15/2017 11:00 AM CDT Oxygen Saturation 99% 12/15/2017 12:45 PM CDT Inhaled Oxygen Concentration - - Weight 94.8 kg (209 lb) 12/15/2017 8:16 AM CDT Height 165.1 cm (5' 5 ) 12/15/2017 8:16 AM CDT Body Mass Index 34.78 12/15/2017 8:16 AM CDT Plan of Treatment Health Maintenance Due Date Last Done Comments BONE DENSITY TESTING 1945 MEDICARE AWV 12 MONTHS 1945 HEPATITIS C SCREENING 04/01/1964 DTAP/TDAP/TD VACCINES (1 - Tdap) 1965 PNEUMOCOCCAL VACCINE 50+ (1 of 1 - PCV) 1996 ZOSTER VACCINE (1 of 2) 1996 Respiratory Syncytial Virus (RSV) Vaccine Pt: or over 60 yrs (1 - 1-dose 75+ series) 2021 COVID-19 VACCINE ( - 2023-2 5 season) 2023 INFLUENZA VACCINE (#1) 2023 DEPRESSION SCREENING 03/17/2024 HEPATITIS B VACCINE Aged Out No longe r eligible based on patient's age to complete this topic HIB VACCINE Aged Out No longer eligi ble based on patient's age to complete this topic HPV VACCINE Aged Out No longer eligi ble based on patient's age to complete this topic MENINGOCOCCAL (Group B) VACC INE SHARED DECISION-MAKING Aged Out No longer eligibl e based on patient's age to complete this topic MENINGOCOCCAL GROUPS A/C/Y/W VACCINE Aged Out No longer eligible b ased on patient's age to complete this topic Advance Directives * Full Code (Latest Code Status on File) Date Activated Date Inactivated Comments 11/22/2014 6:30 PM 11/24/2014 12:04 PM * Full Code Date Activated Date Inactivated Comments 08/09/2014 1:51 PM 08/10/2014 12:08 PM * Full Code Date Activated Date Inactivated Comments 03/28/2010 7:33 AM 03/30/2010 1:49 AM Care Teams Supervisor Production Managing Relationship Specialty Start Date End Date Darius Urbina MD [address] [place], [place] [id number] PCP - General Internal Medicine 03/27/12 Carmen Beckman, RN Supervisor Assembly 11/23/14
--- OUTSIDE RECORDS SUMMARY | 2024-06-15 16:12 | XMS_ITS | Clinical Summary ---
Author Organization [facility] Address [address] [place] [address] Care Team Providers Care Oil Bay Technician Name Role Phone Darius Urbina MD Primary Care Provider [phone] Allergies Active Allergy Reactions Criticality Noted Date [...] of gastric banding 06/23/2014 Gastric prolapse 06/23/2014 Surgical History Surgery Date Site/Laterality Comments HERNIA REPAIR TOTAL KNEE ARTHROPLASTY [facility] COLON SURGERY Medical History Medical History Date Comments Urinary bladder disorder Hypertension Colon cancer (HCC) Depression Family History Medical History Relation Name Comments Arthritis Brother Cancer Father Mental illness Maternal Grandfather Blood Clot Maternal Grandmother Hypertension Mother Kidney disease Other Gout Paternal Grandfather Seizures Paternal Grandmother Lung disease Sister Diabetes Neg Hx Relation Name Status Comments Brother Father Maternal Grandfather Maternal Grandmother Mother Other Paternal Grandfather Paternal Grandmother Sister Social History Tobacco Use Types Packs/Day Years Used Date Smoking Tobacco: Never Smokeless Tobacco: Never Personal Safety Answer Date Recorded Getting School Help Needed Not on file 05/29 Comments Unknown Sex and Gender Information Value Date Recorded Sex Assigned at Not on file Legal Sex Female 11:01 AM CAMP DIRECTOR Gender Identity Not on file Sexual Orientation Not on file Obstetrics History Last Filed Vital Signs Vital Sign Reading [...] of Treatment Not on file Insurance MEDICARE [employer] GENERIC Care Teams Oil Bay Technician Relationship Specialty Start Date End Date Darius Urbina MD PCP - General 02/27/12
== END 2024-06-15 14:42 | disposition home or self-care (01) ==
PROVIDERS: PCP Internal Medicine; Visit Provider Internal Medicine Cardiovascular Disease
DX: I35.0 Nonrheumatic aortic (valve) stenosis (principal); I27.20 Pulmonary hypertension, unspecified; I35.1 Nonrheumatic aortic (valve) insufficiency
CPT/HCPCS: 93306

== ENCOUNTER 2024-06-21 10:48 | Outpatient (CLI) | payer MEDICARE, SELFPAY ==
--- NOTE | ~2024-06-21 | XR_ITS ---
AP and lateral views of the sacrum/coccyx CLINICAL HISTORY: Urinary incontinence, a wire comparison: 03/12/2024 FINDINGS: Stable degenerative spondylosis of the lower lumbar spine. There is degenerative change of the SI joints, mild in degree. Bilateral hip joints are intact. Neurostimulator device in the pelvis is unchanged. Scattered surgical clips are unchanged. IMPRESSION: No acute abnormality seen. Stable neurostimulator device. Reviewed, dictated and finalized at location .
--- OUTSIDE RECORDS SUMMARY | 2024-06-21 12:34 | XMS_ITS | Encounter Summary ---
Author Organization [facility] Address [address] [place] [address] Care Team Providers Care Contractor Buyer Name Role Phone Darius Urbina MD Primary Care Provider [phone] Encounter Details Date Type Department Care Team (Late st Contact Info) Description 01/17/[address] [facility] [address] [place], [place] [id number] Kirit Grace MD [address] [facility]. [place], [place] [id number] Social History Tobacco Use Types Packs/Day Years Used Date Smoking Tobacco: Never Smokeless Tobacco: Never Alcohol Use Standard Drinks/Week Comments Not Currently 0 (1 standard drink = 0.6 oz pur e alcohol) seldom Comments No Sex and Gender Information Value Date Recorded Sex Assigned at Not on file Legal Sex Female 9:06 PM ADVISOR ADVOCATE ANGEL CO FOUNDER Gender Identity Not on file Sexual Orientation [...] on filedocumented in this encounter Care Teams Contractor Buyer Relationship Specialty Start Date End Date Darius Urbina MD [address] [place] [address] PCP - General INTERNAL MEDICINE 01/14/24 documented as of this encounter
--- OUTSIDE RECORDS SUMMARY | 2024-06-21 12:34 | XMS_ITS | Referral Summary ---
Author Organization [facility] Address [address] [place] [address] Care Team Providers Care Chief Gauger Name Role Phone Darius Urbina MD Primary Care Provider Allergies Active Allergy Reactions Criticality Noted Date [...] on file Legal Sex Female 11:01 AM EXCEPTIONAL CHILDREN'S TEACHER Gender Identity Not on file Sexual Orientation [...] of Treatment Not on file Insurance MEDICARE [employer] GENERIC Care Teams Chief Gauger Relationship Specialty Start Date End Date Darius Urbina MD PCP - General 02/27/12
--- OUTSIDE RECORDS SUMMARY | 2024-06-21 12:34 | XMS_ITS | Clinical Summary ---
Author Organization [facility] Address [address] [place] [address] Care Team Providers Care Funeral Service Practitioner/Embalmer Name Role Phone Darius Urbina MD Primary Care Provider [phone] Allergies Active Allergy Reactions Criticality Noted Date [...] on file Legal Sex Female 11:01 AM DISTRICT LEADER Gender Identity Not on file Sexual Orientation [...] of Treatment Not on file Insurance MEDICARE [facility] Address: [facility] [address] [place] [address] [employer] GENERIC Care Teams Funeral Service Practitioner/Embalmer Relationship Specialty Start Date End Date Darius Urbina MD PCP - General 02/27/12
--- OUTSIDE RECORDS SUMMARY | 2024-06-21 12:34 | XMS_ITS | CONTINUITY OF CARE DOCUMENT ---
Author Name [facility] Address Unknown Organization [facility] Address [address] [place] [address] Phone [phone] Care Team Providers Care Front End Java Developer Name Role Phone Jose SKY, Isidoro Unavailable [phone] DOMENIC PERRY MD Unavailable DOMENIC PERRY MD Unavailable INSURANCE PROVIDERS Payer name Policy type / Coverage type [place] red alliance party ID [id number] insurance [employer] [id number] [place] Medicare [id number]
--- OUTSIDE RECORDS SUMMARY | 2024-06-21 12:34 | XMS_ITS | Clinical Summary ---
Author Organization [facility] Address [address] [place] [address] Care Team Providers Care Fur Cleaner Name Role Phone Darius Urbina MD Primary Care Provider [phone] Allergies Active Allergy Reactions Criticality Noted Date [...] on file Legal Sex Female 9:06 PM MAGAZINE REPAIRER Gender Identity Not on file Sexual Orientation Not on file Last Filed Vital Signs Vital Sign Reading Time Taken Comments Blood Pressure 175/103 01/22/2024 1:05 PM MAGAZINE REPAIRER Pulse 69 01/22/2024 1:05 PM MAGAZINE REPAIRER Temperature 36.4 C (97.6 F) 01/22/2024 1:05 PM MAGAZINE REPAIRER Respiratory Rate 18 01/22/2024 1:05 PM MAGAZINE REPAIRER Oxygen Saturation 99% 01/22/2024 1:05 PM MAGAZINE REPAIRER Inhaled Oxygen Concentration - - Weight 88.4 kg (194 lb 14.2 oz) 024 11:06 AM MAGAZINE REPAIRER Height 165.1 cm (5' 5 ) 01/14/2024 [...] 2023-2 5 season) 2023 02/13/2021, 06/13/2020, 05/23/2020 Meningococcal B Vaccine Aged Out No l onger eligible based on patient's age to complete this topic Meningococcal Vaccine Aged Out No enrico irasema eligible based on patient's age to complete this topic RSV Immunizations Under 20 Months Aged Out No longer eligible b ased on patient's age to complete this topic Medical Devices Implanted Type Area Development And Planning Engineer Device Identifier Shelf Expiration Date Model / Serial / Lot Interstim X Implanted:Qt y: 1 on 01/22/2024 by Wilmer Jaramillo MD at [facility] Stimulator Implant N/A: Buttocks [employer] 04/30/2025 [id number] / [id number] H / Implant Lead Implanted:Qt y: 1 on 01/22/2024 by Wilmer Jaramillo MD at [facility] Stimulator Implant N/A: Sacrum [employer] 09/07/2025 [id number] / / [id number] Insurance MEDICARE [facility] Advance Directives * Full Code (Latest Code Status on File) Date Activated Date Inactivated Comments 01/22/2024 12:40 PM 01/22/2024 3:39 PM Care Teams Fur Cleaner Relationship Specialty Start Date End Date Darius Urbina MD [address] [place] [address] PCP - General INTERNAL MEDICINE 01/14/24
--- OUTSIDE RECORDS SUMMARY | 2024-06-21 12:34 | XMS_ITS | Clinical Summary ---
Author Organization [facility] Address [address] [place] [address] Care Team Providers Care Technical Project Coordinator Name Role Phone Darius Urbina MD Primary Care Provider [phone] Carmen Beckman RN Unavailable [phone] Source Comments [facility],non-owned Affiliates and Associated Physician Practices is amultiple site organization consisting of ambulatory clinics and hospital sitesin [place], [place], [place] and [place]. This disclosure is being madepursuant to the Care Everywhere program and may not contain all information available regarding this patient. Last updated 17.[facility] Allergies No known active allergies Medications * [...] VACCINE ( - 2023-2 5 season) 2023 DEPRESSION SCREENING 03/17/2024 INFLUENZA VACCINE (Season Ended) 2024 HEPATITIS B VACCINE Aged Out No longe [...] 7:33 AM 03/30/2010 1:49 AM Care Teams Technical Project Coordinator Relationship Specialty Start Date End Date Darius Urbina MD [address] [place], [place] [id number] PCP - General Internal Medicine 03/27/12 Carmen Beckman, RN Truckload Checker 11/23/14
== END 2024-06-21 10:49 | disposition home or self-care (01) ==
PROVIDERS: PCP Internal Medicine; Visit Provider Physician Assistant Medical
DX: N39.42 Incontinence without sensory awareness (principal); Z96.82 Presence of neurostimulator
CPT/HCPCS: 72220

== ENCOUNTER 2024-06-25 12:43 | Outpatient (CLI) | payer MEDICARE, SELFPAY ==
--- NOTE | ~2024-06-25 | XR_ITS ---
EXAM/ PROCEDURE: XR humerus LT - 06/25/2024 13:00 CDT HISTORY: 79 years old Female with Pain in Lt . shoulder radiates through Lt. humerus, NKI COMPARISON: None available TECHNIQUE: Three view(s) FINDINGS/ IMPRESSION: There are no fractures or dislocations.Joint space narrowing, subchondral sclerosis, subchondral cyst formation and osteophyte formation, compatible with moderate osteoarthritis. Reviewed, dictated and finalized at location A.
--- NOTE | ~2024-06-25 | XR_ITS ---
EXAM/ PROCEDURE: XR shoulder LT min 2V - 06/25/2024 13:00 CDT HISTORY: 79 years old Female with Pain in Lt . shoulder radiates through Lt. humerus, NKI COMPARISON: None available TECHNIQUE: Three view(s) FINDINGS/ IMPRESSION: There are no fractures or dislocations.Joint space narrowing, subchondral sclerosis, subchondral cyst formation and osteophyte formation, compatible with moderate osteoarthritis. Reviewed, dictated and finalized at location A.
--- OUTSIDE RECORDS SUMMARY | 2024-06-25 12:50 | XMS_ITS | Clinical Summary ---
Author Organization [facility] Address [address] [place] [address] Care Team Providers Care Client Server Developer Name Role Phone Darius Urbina MD Primary Care Provider [phone] Allergies Active Allergy Reactions Criticality Noted Date [...] on file Legal Sex Female 9:06 PM HOT DOG VENDER Gender Identity Not on file Sexual Orientation Not on file Last Filed Vital Signs Vital Sign Reading Time Taken Comments Blood Pressure 175/103 01/22/2024 1:05 PM HOT DOG VENDER Pulse 69 01/22/2024 1:05 PM HOT DOG VENDER Temperature 36.4 C (97.6 F) 01/22/2024 1:05 PM HOT DOG VENDER Respiratory Rate 18 01/22/2024 1:05 PM HOT DOG VENDER Oxygen Saturation 99% 01/22/2024 1:05 PM HOT DOG VENDER Inhaled Oxygen Concentration - - Weight 88.4 kg (194 lb 14.2 oz) 024 11:06 AM HOT DOG VENDER Height 165.1 cm (5' 5 ) 01/14/2024 [...] this topic Medical Devices Implanted Type Area Packing House Supervisor Device Identifier Shelf Expiration Date Model / Serial / Lot Interstim X Implanted:Qt y: 1 on 01/22/2024 by Wilmer Jaramillo MD at [facility] Stimulator Implant N/A: Buttocks [employer] 04/30/2025 [id number] / [id number] H / Implant Lead Implanted:Qt y: 1 on 01/22/2024 by Wilmer Jaramillo MD at [facility] Stimulator Implant N/A: Sacrum [employer] 09/07/2025 [id number] / / [id number] Insurance [facility]ICARE [facility] Advance Directives * Full Code (Latest Code Status on File) Date Activated Date Inactivated Comments 01/22/2024 12:40 PM 01/22/2024 3:39 PM Care Teams Client Server Developer Relationship Specialty Start Date End Date Darius Urbina MD [address] [place] [address] PCP - General INTERNAL MEDICINE 01/14/24
--- OUTSIDE RECORDS SUMMARY | 2024-06-25 12:50 | XMS_ITS | Clinical Summary ---
Author Organization [facility] Address [address] [place] [address] Phone Care Team Providers Care Component Overhaul Operator Name Role Phone DOMENIC PERRY MD Primary Care Provider [phone] Reason for Visit and Chief Complaint The Chief Complaint is: 3 month follow up Problems Includes: Problems addressed during this encounter and other active Problems Current Visit Onset Date Resolved Date Provider Conditio n Status Chronic Kidney Disease Stage 2 Unknown AFSANEH Banda DARRIN SIGN ERECTOR-FPA, HYDRAULIC DESIGN ENGINEER-BC Active Last Documented On 3 2:12PM ; [facility] Past Visits Onset Date Resolved Date Provider Condition Status Depression Unknown AFSANEH Banda DARRIN SIGN ERECTOR-FPA, HYDRAULIC DESIGN ENGINEER-BC Active Last Documented On 3 2:10PM ; [facility] Anxiety Disorder Nos Unknown AFSANEH Banda DARRIN SIGN ERECTOR-FPA, HYDRAULIC DESIGN ENGINEER-BC Active Last Documented On 3 2:10PM ; [facility] Osteopenia Unknown AFSANEH G DARRIN SIGN ERECTOR-FPA, HYDRAULIC DESIGN ENGINEER-BC Active Last Documented On 3 2:12PM ; [facility] Hyperlipidemia Unknown AFSANEH Banda DARRIN SIGN ERECTOR-F PA, HYDRAULIC DESIGN ENGINEER-BC Active Last Documented On 3 2:12PM ; [facility] Labile Hypertension Unknown AFSANEH G DARRIN A PRN-FPA, HYDRAULIC DESIGN ENGINEER-BC Active Last Documented On 3 2:11PM ; [facility] Iron Deficiency Anemia Unknown ASFANEH Veronika KUL P SIGN ERECTOR-FPA, HYDRAULIC DESIGN ENGINEER-BC Active Last Documented On 3 2:11PM ; [facility] Myalgia and Myositis Unknown AFSANEH MARQUEZLP SIGN ERECTOR-FPA, HYDRAULIC DESIGN ENGINEER-BC Active Last Documented On 3 2:11PM ; [facility] Obesity Unknown AFSANEH MARQUEZLP SIGN ERECTOR-FPA, HYDRAULIC DESIGN ENGINEER-BC Active Last Documented On 3 2:12PM ; [facility] Osteoarthritis Unknown AFSANEH Banda KUL P SIGN ERECTOR-FPA, HYDRAULIC DESIGN ENGINEER-BC Active Last Documented On 3 2:11PM ; [facility] Note: multiple joints Plan of [...] - Last Documented On 05/09/2023 10:19AM ; [facility] Education and Decision Aids were provided during visit for: Pill Count: Tramadol [per PC P] Last Documented On 4 9:39AM ; [facility] Assessments Includes: Assessments from this encounter Findings - [N18.2 - Chronic kidney disease, stage 2 (mild)] Chronic kidney disease, stage 2 - Last Documented On 05/09/2023 10:19AM ; [facility] - [M46.1 - Sacroiliitis, not elsewhere classified] Sacroiliitis - Last Documented On 05/09/2023 10:19AM ; [facility] - [M47.892 - Other spondylosis, cervical region] Cervical spondylosis - Last Documented On 05/09/2023 10:19AM ; [facility] - [M54.50 - Low back pain, unspecified] Low back pain - Last Documented On 05/09/2023 10:19AM ; [facility] - [M48.061 - Spinal stenosis, lumbar region without neurogenic claudication] Lumbar stenosis - Last Documented On 05/09/2023 10:19AM ; [facility] - [M54.16 - Radiculopathy, lumbar region] Lumbar radiculopathy - Last Documented On 05/09/2023 10:19AM ; [facility] - [M79.7 - Fibromyalgia] Fibromyalgia - Last Documented On 05/09/2023 10:19AM ; [facility] - [G89.4 - Chronic pain syndrome] Chronic pain syndrome - Last Documented On 05/09/2023 10:19AM ; [facility] Instructions Includes: Instructions from this encounter Education and Decision Aids were provided during visit for: Pill Count: Tramadol [per PC P] Last Documented On 4 9:39AM ; [facility] Medical Equipment - Implanted Devices Includes: [...] On 4 10:09AM By AFSANEH BARONE ; [facility] Prevagen 10 MG Oral Capsule 08/18/2023 Provider: Diagnosis: Last Documented On 4 10:09AM By AFSANEH BARONE ; [facility] DULoxetine HCl 60 MG Oral Ca psule Delayed Release Particles 08/01/2023 Provider: LIZABETH BAPTISTE Diagnosis: 1 CAPSULE DAILY AT BEDTIME Last Documented On 4 10:09AM By AFSANEH BARONE ; [facility] Aspirin EC Low Strength 81 MG Oral Tablet Delayed Rele ase 11/26/2022 Provider: Diagnosis: Last Documented On 3 3:27PM By AFSANEH BARONE ; [facility] traMADol HCl 50 MG Oral Tablet 11/26/2022 Provider: Diagnosis: one tablet a day. Last Documented On 3 3:27PM By AFSANEH BARONE ; [facility] Montelukast Sodium 10 MG Oral Tablet 11/26/2022 Prov ider: Diagnosis: Last Documented On 3 3:27PM By AFSANEH BARONE ; [facility] Verapamil HCl ER 240 MG Oral Capsule Extended Re lease 24 Hour 11/26/2022 Provider: Diagnosis: Last Documented On 3 3:27PM By AFSANEH BARONE ; [facility] Ativan 0.5 MG Oral Tablet 11/26/2022 Provider: Diagnosis: 2 tablets at bedtime. Last Documented On 3 3:27PM By AFSANEH BARONE ; [facility] Bariatric Multivitamins/Iron Oral Capsule 11/26/2022 Provider: Diagnosis: Last Documented On 3 3:27PM By AFSANEH BARONE ; [facility] Pravastatin Sodium 10 MG Oral Tablet 11/26/2022 Prov ider: Diagnosis: Last Documented On 3 3:27PM By AFSANEH BARONE ; [facility] Tylenol Extra Strength 500 MG Oral Tablet 11/26/2022 Provider: Diagnosis: Last Documented On 3 3:27PM By AFSANEH BARONE ; [facility] Alendronate Sodium 70 MG Oral Tablet 11/26/2022 Prov ider: Diagnosis: 1 weekly. Last Documented On 3 3:27PM By AFSANEH BARONE ; [facility] Carvedilol 12.5 MG Oral Tablet 11/26/2022 Provider: Diagnosis: Last Documented On 3 3:27PM By AFSANEH BARONE ; [facility] Past Medications on file Nystatin 143723 UNIT/GM External Cream 08/18/2023 - 09/17/2023 Provider: LIZABETH BAPTISTE Diagnosis: Candidiasis, unspecified apply to buttocks 2 times daily Last Documented On 4 10:21AM By AFSANEH BARONE ; [facility] Fluconazole 100 MG Oral Tablet 08/18/2023 - 08/28/2023 Provider: LIZABETH BAPTISTE Diagnosis: Candidiasis, unspecified take 1 tablet today and then repeat in 1 week Last Documented On 4 10:21AM By AFSANEH BARONE ; [facility] Medications Administered Includes: Administered Medications [...] 98 Last Documented: On 05/09/2023 9:54AM ; [facility] Results Includes: Results discussed during [...] numbness. Denies any motor weakness. 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 She understands she needs a spotter driver and was given the procedure without [...] 11/26/2022 Last Documented On 4 9:39AM ; [facility] Difficulty walking 11/26/2022 Last Documented On 4 9:39AM ; [facility] No consumption of alcohol 11/26/2022 Last Documented On 4 9:39AM ; [facility] Not using drugs 11/26/2022 Last Documented On 4 9:39AM ; [facility] Smoking Status Unknown Procedures and Surgical History Includes: Procedures from this encounter Procedures Code Diagnosis Performing Provider Service L ocation Service Date use of tobacco assessment performed 1000F Last Documented On 4 9:39AM ; [facility] patient screened for future fall risk: documentation of any fall with injury in past year 1100F Last Documented On 4 9:52AM ; [facility] review of medications documented 1160F Last Documented On 4 9:39AM ; [facility] screening for adult depression: impressi on and score five Last Documented On 4 9:39AM ; [facility] standardized depression screening: posit tena for symptoms Last Documented On 4 9:39AM ; [facility] Reviewed & agreed to staff entries. Last Documented On 4 9:39AM ; [facility] Clinical summary provided to patient Last Documented On 4 9:39AM ; [facility] SOAPP-R: total score 27 Last Documented On 4 9:39AM ; [facility] Surgical History Last Updated History of cholecystectomy 11/26/2022 Last Documented On 4 9:39AM ; [facility] History of hysterectomy 11/26/2022 Last Documented On 4 9:39AM ; [facility] History of Primary Knee Arthroplasty Rig ht 11/26/2022 Last Documented On 4 9:39AM ; [facility] Prior surgery Gatric Lap Band 11/26/2022 Last Documented On 4 9:39AM ; [facility] No Pacemaker 11/26/2022 Last Documented On 4 9:39AM ; [facility] Medical History Includes: Medical History addressed during this encounter Description Last Updated Has had no fall in the last 12 months. 0 08/18/2023 Last Documented On 4 9:39AM ; [facility] Has a fear of falling. 05/09/2023 Last Documented On 4 10:19AM ; [facility] History of cancer Colon w/ Hemicolectomy in 40's 11/26/2022 Last Documented On 4 9:39AM ; [facility] companion caregiver 11/26/2022 Last Documented On 4 9:39AM ; [facility] CT/MRI Back legs 11/26/2022 Last Documented On 4 9:39AM ; [facility] Exposure to a lot of bright sunlight 02/2023 Last Documented On 4 9:39AM ; [facility] Moderate to severe pain 11/26/2022 Last Documented On 4 9:39AM ; [facility] No Pain Pump 11/26/2022 Last Documented On 4 9:39AM ; [facility] No Spinal cord stimulator 11/26/2022 Last Documented On 4 9:39AM ; [facility] Physical therapy 11/26/2022 Last Documented On 4 9:39AM ; [facility] Please list all illnesses/co nditions you have been diagnosed with: Colon cancer. depression anxietytia in right eyearthritis bladder problems 11/26/2022 Last Documented On 4 9:39AM ; [facility] Please list all surgeries: Sleeve weight loss. 2011colon cancer. 1989-11/26/2022 Last Documented On 4 9:39AM ; [facility] Treatment with TENS unit 11/26/2022 Last Documented On 4 9:39AM ; [facility] Ultrasound Legs 11/26/2022 Last Documented On 4 9:39AM ; [facility] X-rays Legs. hips 11/26/2022 Last Documented On 4 9:39AM ; [facility] Family History Includes: Family History addressed during this encounter Description Last Updated Family history of diabetes mellitus Sist er 11/26/2022 Last Documented On 4 9:39AM ; [facility] Father Dementia 11/26/2022 Last Documented On 4 9:39AM ; [facility] Mother CVA ~OA ~RA 11/26/2022 Last Documented On 4 9:39AM ; [facility] Family history of Arthritis 11/26/2022 Last Documented On 4 9:39AM ; [facility] Maternal history of Arthritis 11/26/2022 Last Documented On 4 9:39AM ; [facility] Maternal history of family history of ki dney disease 11/26/2022 Last Documented On 4 9:39AM ; [facility] Sororal history of Arthritis 11/26/2022 Last Documented On 4 9:39AM ; [facility] Review of Systems Includes: Review of [...] Activ e Last Documented On 9:45AM ; [facility] Encounters Encounter Provider Location Date Check-In Time Check-Out Time Diagnosis PAIN MANAGEMENT FOLLOW UP AFSANEH MARQUEZNEENA ELIN-FPA, HYDRAULIC DESIGN ENGINEER-BC [facility] 05/09/19 24 9:34AM 10:17AM Cervical Spondylosis,S thuy Stenosis Lumbar,Chroni c Pain Syndrome,Sacr oiliitis,Lumb ar Radiculopathy ,Chronic Kidney Disease Stage 2,Fibromyalgi a,Dorsopathy Low Back Pain Insurance Includes: Active Insurance Policies Plan Name Member ID Group # Subscriber Relationship Effect tena Dates 1 - MEDICARE PART A CLAIMS/NGS [id number] ANA Shabazz KALI Self 03/17/2011 - Unknown 2 - [employer] [id number] PLAN F ANA BASS Self 05/15/2017 - Unknown Clinical Notes Includes: Clinical Notes from this encounter * Progress note Date Encounter Last Documented by 05/09/2023 PAIN MANAGEMENT FOLLOW UP Last d ocumented on 05/09/2023; 10:19 AM, AFSANEH Banda DARRIN ELIN-BELTRANA, HYDRAULIC DESIGN ENGINEER-SIERRA; [facility] Active Problems & Conditions - [...] numbness. Denies any motor weakness. 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 She understands she needs a spotter driver and was given the procedure without [...] days, 0 refills Past Medical/Surgical History Reported: companion caregiver, Treatment with TENS unit, Physical therapy, Please [...] normal. No pain behaviors. Skin: Normal. [place], warm, dry. Tests Educational Testing: Questionnaires PHQ-9: [...] - Other spondylosis, cervical region Radiology @ [facility]/MRI: MRI Cervical w/o contrast Instructions: continued neck [...] and for adult impression and score five; [31932] Established outpatient, medically appropriate H&P, moderate level [...] but may be subject to typographical or utility person errors. Verify all diagnoses, medications, dosages, and [...]
--- OUTSIDE RECORDS SUMMARY | 2024-06-25 12:51 | XMS_ITS | Clinical Summary ---
Author Organization [facility] Address [address] [place] [address] Care Team Providers Care Rabbet Operator Name Role Phone Darius Urbina MD Primary Care Provider [phone] Carmen Beckman RN Unavailable [phone] Source Comments [facility],non-owned Affiliates and Associated Physician Practices is amultiple site organization consisting of ambulatory clinics and hospital sitesin [place], [place], [place] and [place]. This disclosure is being madepursuant to the Care Everywhere program and may not contain all information available regarding this patient. Last updated 17.[facility] Allergies No known active allergies Medications * [...] 7:33 AM 03/30/2010 1:49 AM Care Teams Rabbet Operator Relationship Specialty Start Date End Date Darius Urbina MD [address], [place] [id number] PCP - General Internal Medicine 03/27/12 Carmen Beckman, RN Product Coordinator 11/23/14
--- OUTSIDE RECORDS SUMMARY | 2024-06-25 12:51 | XMS_ITS | Clinical Summary ---
Author Organization [facility] Address [address] [place] [address] Care Team Providers Care Handbag Finisher Name Role Phone Darius Urbina MD Primary Care Provider [phone] Allergies Active Allergy Reactions Criticality Noted Date [...] on file Legal Sex Female 11:01 AM MENTAL HEALTH TECH Gender Identity Not on file Sexual Orientation [...] of Treatment Not on file Insurance MEDICARE [employer] Care Teams Handbag Finisher Relationship Specialty Start Date End Date Darius Urbina MD PCP - General 02/27/12
--- OUTSIDE RECORDS SUMMARY | 2024-06-25 12:51 | XMS_ITS | Clinical Summary ---
Author Organization [facility] Address [address] [place] [address] Phone Care Team Providers Care Counter Person Name Role Phone DOMENIC PERRY MD Primary Care Provider [phone] Reason for Visit and Chief Complaint The Chief Complaint is: Follow up after left SI injection 05/22/2023 ~50 % - 60 ongoing Problems Includes: Problems addressed during this encounter and other active Problems Current Visit Onset Date Resolved Date Provider Conditio n Status Chronic Kidney Disease Stage 2 Unknown AFSANEH Banda DARRIN APPAREL STOCK CHECKER-FPA, ELECTROPLATING TECHNICIAN-BC Active Last Documented On 3 2:12PM ; [facility] Past Visits Onset Date Resolved Date Provider Condition Status Depression Unknown AFSANEH G DARRIN APPAREL STOCK CHECKER-FPA, ELECTROPLATING TECHNICIAN-BC Active Last Documented On 3 2:10PM ; [facility] Anxiety Disorder Nos Unknown AFSANEH G DARRIN APPAREL STOCK CHECKER-FPA, ELECTROPLATING TECHNICIAN-BC Active Last Documented On 3 2:10PM ; [facility] Osteopenia Unknown AFSANEH G DARRIN APPAREL STOCK CHECKER-FPA, ELECTROPLATING TECHNICIAN-BC Active Last Documented On 3 2:12PM ; [facility] Hyperlipidemia Unknown AFSANEH Veronika DARRIN APPAREL STOCK CHECKER-F PA, ELECTROPLATING TECHNICIAN-BC Active Last Documented On 3 2:12PM ; [facility] Labile Hypertension Unknown AFSANEH G DARRIN A PRN-FPA, ELECTROPLATING TECHNICIAN-BC Active Last Documented On 3 2:11PM ; [facility] Iron Deficiency Anemia Unknown AFSANEH G KUL P APPAREL STOCK CHECKER-FPA, ELECTROPLATING TECHNICIAN-BC Active Last Documented On 3 2:11PM ; [facility] Myalgia and Myositis Unknown AFSANEH CLIFFORD APPAREL STOCK CHECKER-FPA, ELECTROPLATING TECHNICIAN-BC Active Last Documented On 3 2:11PM ; [facility] Obesity Unknown AFSANEH CLIFFORD APPAREL STOCK CHECKER-FPA, ELECTROPLATING TECHNICIAN-BC Active Last Documented On 3 2:12PM ; [facility] Osteoarthritis Unknown AFSANEH MARQUEZL P APPAREL STOCK CHECKER-FPA, ELECTROPLATING TECHNICIAN-BC Active Last Documented On 3 2:11PM ; [facility] Note: multiple joints Plan of [...] - Last Documented On 06/17/2023 3:53PM ; [facility] Education and Decision Aids were provided during visit for: Pill Count: Tramadol Dr. Gerard raygoza Last Documented On 4 2:43PM ; [facility] Assessments Includes: Assessments from this encounter Findings - [N18.2 - Chronic kidney disease, stage 2 (mild)] Chronic kidney disease, stage 2 - Last Documented On 06/17/2023 3:53PM ; [facility] - [M46.1 - Sacroiliitis, not elsewhere classified] Sacroiliitis - Last Documented On 06/17/2023 3:53PM ; [facility] - [M47.892 - Other spondylosis, cervical region] Cervical spondylosis - Last Documented On 06/17/2023 3:53PM ; [facility] - [M54.50 - Low back pain, unspecified] Low back pain - Last Documented On 06/17/2023 3:53PM ; [facility] - [M48.061 - Spinal stenosis, lumbar region without neurogenic claudication] Lumbar stenosis - Last Documented On 06/17/2023 3:53PM ; [facility] - [M54.16 - Radiculopathy, lumbar region] Lumbar radiculopathy - Last Documented On 06/17/2023 3:53PM ; [facility] - [M79.7 - Fibromyalgia] Fibromyalgia - Last Documented On 06/17/2023 3:53PM ; [facility] - [G89.4 - Chronic pain syndrome] Chronic pain syndrome - Last Documented On 06/17/2023 3:53PM ; [facility] Instructions Includes: Instructions from this encounter Education and Decision Aids were provided during visit for: Pill Count: Tramadol Dr. Gerard raygoza Last Documented On 4 2:43PM ; [facility] Medical Equipment - Implanted Devices Includes: Current [...] On 4 10:09AM By AFSANEH BARONE ; [facility] Prevagen 10 MG Oral Capsule 08/18/2023 Provider: Diagnosis: Last Documented On 4 10:09AM By AFSANEH BARONE ; [facility] DULoxetine HCl 60 MG Oral Ca psule Delayed Release Particles 08/01/2023 Provider: LIZABETH BAPTISTE Diagnosis: 1 CAPSULE DAILY AT BEDTIME Last Documented On 4 10:09AM By AFSANEH BARONE ; [facility] Aspirin EC Low Strength 81 MG Oral Tablet Delayed Rele ase 11/26/2022 Provider: Diagnosis: Last Documented On 3 3:27PM By AFSANEH BARONE ; [facility] traMADol HCl 50 MG Oral Tablet 11/26/2022 Provider: Diagnosis: one tablet a day. Last Documented On 3 3:27PM By AFSANEH BARONE ; [facility] Montelukast Sodium 10 MG Oral Tablet 11/26/2022 Prov ider: Diagnosis: Last Documented On 3 3:27PM By AFSANEH BARONE ; [facility] Verapamil HCl ER 240 MG Oral Capsule Extended Re lease 24 Hour 11/26/2022 Provider: Diagnosis: Last Documented On 3 3:27PM By AFSANEH BARONE ; [facility] Ativan 0.5 MG Oral Tablet 11/26/2022 Provider: Diagnosis: 2 tablets at bedtime. Last Documented On 3 3:27PM By AFSANEH BARONE ; [facility] Bariatric Multivitamins/Iron Oral Capsule 11/26/2022 Provider: Diagnosis: Last Documented On 3 3:27PM By AFSANEH BARONE ; [facility] Pravastatin Sodium 10 MG Oral Tablet 11/26/2022 Prov ider: Diagnosis: Last Documented On 3 3:27PM By AFSANEH BARONE ; [facility] Tylenol Extra Strength 500 MG Oral Tablet 11/26/2022 Provider: Diagnosis: Last Documented On 3 3:27PM By AFSANEH BARONE ; [facility] Alendronate Sodium 70 MG Oral Tablet 11/26/2022 Prov ider: Diagnosis: 1 weekly. Last Documented On 3 3:27PM By AFSANEH BARONE ; [facility] Carvedilol 12.5 MG Oral Tablet 11/26/2022 Provider: Diagnosis: Last Documented On 3 3:27PM By AFSANEH BARONE ; [facility] Past Medications on file Nystatin 400992 UNIT/GM External Cream 08/18/2023 - 09/17/2023 Provider: LIZABETH BAPTISTE Diagnosis: Candidiasis, unspecified apply to buttocks 2 times daily Last Documented On 4 10:21AM By AFSANEH BARONE ; [facility] Fluconazole 100 MG Oral Tablet 08/18/2023 - 08/28/2023 Provider: LIZABETH BAPTISTE Diagnosis: Candidiasis, unspecified take 1 tablet today and then repeat in 1 week Last Documented On 10:21AM By AFSANEH BARNESP- ; [facility] Medications Administered Includes: Administered Medications [...] 98 Last Documented: On 06/17/2023 3:10PM ; [facility] Results Includes: Results discussed during [...] numbness. Denies any motor weakness. 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 She understands she needs a driver engineer and was given the procedure without sedation [...] 11/26/2022 Last Documented On 4 2:42PM ; [facility] Tobacco non-user 11/26/2022 Last Documented On 4 2:42PM ; [facility] Difficulty walking 11/26/2022 Last Documented On 4 2:42PM ; [facility] No consumption of alcohol 11/26/2022 Last Documented On 4 2:42PM ; [facility] Not using drugs 11/26/2022 Last Documented On 4 2:42PM ; [facility] Smoking Status Unknown Procedures and Surgical History Includes: Procedures from this encounter Procedures Code Diagnosis Performing Provider Service L ocation Service Date use of tobacco assessment performed 1000F Last Documented On 4 2:42PM ; [facility] patient screened for future fall risk: documentation of any fall with injury in past year 1100F Last Documented On 4 2:42PM ; [facility] review of medications documented 1160F Last Documented On 4 2:42PM ; [facility] screening for adult depression: impressi on and score five Last Documented On 4 2:42PM ; [facility] standardized depression screening: posit tena for symptoms Last Documented On 4 2:42PM ; [facility] Reviewed & agreed to staff entries. Last Documented On 4 2:42PM ; [facility] Clinical summary provided to patient Last Documented On 4 2:42PM ; [facility] SOAPP-R: total score 27 Last Documented On 4 2:42PM ; [facility] Surgical History Last Updated History of cholecystectomy 11/26/2022 Last Documented On 4 2:42PM ; [facility] History of hysterectomy 11/26/2022 Last Documented On 4 2:42PM ; [facility] History of Primary Knee Arthroplasty Rig ht 11/26/2022 Last Documented On 4 2:42PM ; [facility] Prior surgery Gatric Lap Band 11/26/2022 Last Documented On 4 2:42PM ; [facility] No Pacemaker 11/26/2022 Last Documented On 4 2:42PM ; [facility] Medical History Includes: Medical History addressed during this encounter Description Last Updated Has had no fall in the last 12 months. 0 08/18/2023 Last Documented On 4 2:42PM ; [facility] Has a fear of falling. 05/09/2023 Last Documented On 4 2:42PM ; [facility] History of cancer Colon w/ Hemicolectomy in 40's 11/26/2022 Last Documented On 4 2:42PM ; [facility] technical healthcare consultant 11/26/2022 Last Documented On 4 2:42PM ; [facility] CT/MRI Back legs 11/26/2022 Last Documented On 4 2:42PM ; [facility] Exposure to a lot of bright sunlight 02/2023 Last Documented On 4 2:42PM ; [facility] Moderate to severe pain 11/26/2022 Last Documented On 4 2:42PM ; [facility] No Pain Pump 11/26/2022 Last Documented On 4 2:42PM ; [facility] No Spinal cord stimulator 11/26/2022 Last Documented On 4 2:42PM ; [facility] Physical therapy 11/26/2022 Last Documented On 4 2:42PM ; [facility] Please list all illnesses/co nditions you have been diagnosed with: Colon cancer. depression anxietytia in right eyearthritis bladder problems 11/26/2022 Last Documented On 4 2:42PM ; [facility] Please list all surgeries: Sleeve weight loss. 2011colon cancer. 1988-11/26/2022 Last Documented On 4 2:42PM ; [facility] Treatment with TENS unit 11/26/2022 Last Documented On 4 2:42PM ; [facility] Ultrasound Legs 11/26/2022 Last Documented On 4 2:42PM ; [facility] X-rays Legs. hips 11/26/2022 Last Documented On 4 2:42PM ; [facility] Family History Includes: Family History addressed during this encounter Description Last Updated Family history of diabetes mellitus Sist er 11/26/2022 Last Documented On 4 2:42PM ; [facility] Father Dementia 11/26/2022 Last Documented On 4 2:42PM ; [facility] Mother CVA ~OA ~RA 11/26/2022 Last Documented On 4 2:42PM ; [facility] Family history of Arthritis 11/26/2022 Last Documented On 4 2:42PM ; [facility] Maternal history of Arthritis 11/26/2022 Last Documented On 4 2:42PM ; [facility] Maternal history of family history of ki dney disease 11/26/2022 Last Documented On 4 2:42PM ; [facility] Sororal history of Arthritis 11/26/2022 Last Documented On 4 2:42PM ; [facility] Review of Systems Includes: Review of [...] Activ e Last Documented On 9:45AM ; [facility] Encounters Encounter Provider Location Date Check-In Time Check-Out Time Diagnosis PAIN MANAGEMENT FOLLOW UP AFSANEH OSORIO, LIZABETH [facility] 06/17/19 24 2:42PM 3:20PM Cervical Spondylosis,S thuy Stenosis Lumbar,Chroni c Pain Syndrome,Sacr oiliitis,Lumb ar Radiculopathy ,Chronic Kidney Disease Stage 2,Fibromyalgi a,Dorsopathy Low Back Pain Insurance Includes: Active Insurance Policies Plan Name Member ID Group # Subscriber Relationship Effect tena Dates 1 - MEDICARE PART A CLAIMS/NGS [id number] ANA BASS Self 03/17/2011 - Unknown 2 - [employer] [id number] PLAN F ANA BASS Self 05/15/2017 - Unknown Clinical Notes Includes: Clinical Notes from this encounter * Progress note Date Encounter Last Documented by 06/17/2023 PAIN MANAGEMENT FOLLOW UP Last d ocumented on 06/17/2023; 3:53 PM, AFSANEH OSORIO, LIZABETH; [facility] Active Problems & Conditions - Anxiety Disorder [...] numbness. Denies any motor weakness. 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 She understands she needs a driver engineer and was given the procedure without sedation [...] days, 0 refills Past Medical/Surgical History Reported: technical healthcare consultant, Treatment with TENS unit, Physical therapy, Please [...] Affect normal. No pain behaviors. Skin: Normal. [place], warm, dry. Tests Educational Testing: Questionnaires PHQ-9: [...] notes, laboratory data, patient self-report questionnaires, and [place] prescription monitoring database entries. Significant social barriers [...] and for adult impression and score five; [81863] Established outpatient, medically appropriate H&P, moderate level [...] but may be subject to typographical or end frazer errors. Verify all diagnoses, medications, dosages, and [...]
--- OUTSIDE RECORDS SUMMARY | 2024-06-25 12:51 | XMS_ITS | Clinical Summary ---
Author Organization [facility] Address [address] [place] [address] Phone Care Team Providers Care Industrial Truck Mechanic Name Role Phone DOMENIC PERRY MD Primary Care Provider [phone] Reason for Visit and Chief Complaint The Chief Complaint is: Follow up SI injection 01/29/2023 ~50 % 65 onoging Problems Includes: Problems addressed during this encounter and other active Problems Current Visit Onset Date Resolved Date Provider Conditio n Status Chronic Kidney Disease Stage 2 Unknown AFSANEH Banda DARRIN PIPE PRODUCTION WORKER-FPA, PROJ ENGINEER-BC Active Last Documented On 3 2:12PM ; [facility] Past Visits Onset Date Resolved Date Provider Condition Status Depression Unknown AFSANEH G DARRIN PIPE PRODUCTION WORKER-FPA, PROJ ENGINEER-BC Active Last Documented On 3 2:10PM ; [facility] Anxiety Disorder Nos Unknown AFSANEH G DARRIN PIPE PRODUCTION WORKER-FPA, PROJ ENGINEER-BC Active Last Documented On 3 2:10PM ; [facility] Osteopenia Unknown AFSANEH G DARRIN PIPE PRODUCTION WORKER-FPA, PROJ ENGINEER-BC Active Last Documented On 3 2:12PM ; [facility] Hyperlipidemia Unknown AFASNEH G DARRIN PIPE PRODUCTION WORKER-F PA, PROJ ENGINEER-BC Active Last Documented On 3 2:12PM ; [facility] Labile Hypertension Unknown AFSANEH G DARRIN A PRN-FPA, PROJ ENGINEER-BC Active Last Documented On 3 2:11PM ; [facility] Iron Deficiency Anemia Unknown AFSANEH G KUL P PIPE PRODUCTION WORKER-FPA, PROJ ENGINEER-BC Active Last Documented On 3 2:11PM ; [facility] Myalgia and Myositis Unknown AFSANEH MARQUEZLP PIPE PRODUCTION WORKER-FPA, PROJ ENGINEER-BC Active Last Documented On 3 2:11PM ; [facility] Obesity Unknown AFSANEH Banad DARRIN PIPE PRODUCTION WORKER-FPA, PROJ ENGINEER-BC Active Last Documented On 3 2:12PM ; [facility] Osteoarthritis Unknown AFSANEH Banda KUL P PIPE PRODUCTION WORKER-FPA, PROJ ENGINEER-BC Active Last Documented On 3 2:11PM ; [facility] Note: multiple joints [...] - Last Documented On 02/17/2023 10:09AM ; [facility] Education and Decision Aids were provided during visit for: Pill Count: Tramadol [per PC P] Last Documented On 3 9:46AM ; [facility] Assessments Includes: Assessments from this encounter Findings - [N18.2 - Chronic kidney disease, stage 2 (mild)] Chronic kidney disease, stage 2 - Last Documented On 02/17/2023 10:09AM ; [facility] - [M46.1 - Sacroiliitis, not elsewhere classified] Sacroiliitis - Last Documented On 02/17/2023 10:09AM ; [facility] - [M47.892 - Other spondylosis, cervical region] Cervical spondylosis - Last Documented On 02/17/2023 10:09AM ; [facility] - [M54.50 - Low back pain, unspecified] Low back pain - Last Documented On 02/17/2023 10:09AM ; [facility] - [M48.061 - Spinal stenosis, lumbar region without neurogenic claudication] Lumbar stenosis - Last Documented On 02/17/2023 10:09AM ; [facility] - [M54.16 - Radiculopathy, lumbar region] Lumbar radiculopathy - Last Documented On 02/17/2023 10:09AM ; [facility] - [M79.7 - Fibromyalgia] Fibromyalgia - Last Documented On 02/17/2023 10:09AM ; [facility] - [G89.4 - Chronic pain syndrome] Chronic pain syndrome - Last Documented On 02/17/2023 10:09AM ; [facility] Instructions Includes: Instructions from this encounter Education and Decision Aids were provided during visit for: Pill Count: Tramadol [per PC P] Last Documented On 3 9:46AM ; [facility] Medical Equipment - Implanted Devices Includes: [...] On 4 10:09AM By AFSANEH BARONE ; [facility] Prevagen 10 MG Oral Capsule 08/18/2023 Provider: Diagnosis: Last Documented On 4 10:09AM By AFSANEH BARONE ; [facility] DULoxetine HCl 60 MG Oral Ca psule Delayed Release Particles 08/01/2023 Provider: LIZABETH BAPTISTE Diagnosis: 1 CAPSULE DAILY AT BEDTIME Last Documented On 4 10:09AM By AFSANEH BARONE ; [facility] Aspirin EC Low Strength 81 MG Oral Tablet Delayed Rele ase 11/26/2022 Provider: Diagnosis: Last Documented On 3 3:27PM By AFSANEH BARONE ; [facility] traMADol HCl 50 MG Oral Tablet 11/26/2022 Provider: Diagnosis: one tablet a day. Last Documented On 3 3:27PM By AFSANEH BARONE ; [facility] Montelukast Sodium 10 MG Oral Tablet 11/26/2022 Prov ider: Diagnosis: Last Documented On 3 3:27PM By AFSANEH BARONE ; [facility] Verapamil HCl ER 240 MG Oral Capsule Extended Re lease 24 Hour 11/26/2022 Provider: Diagnosis: Last Documented On 3 3:27PM By AFSANEH BARONE ; [facility] Ativan 0.5 MG Oral Tablet 11/26/2022 Provider: Diagnosis: 2 tablets at bedtime. Last Documented On 3 3:27PM By AFSANEH BARONE ; [facility] Bariatric Multivitamins/Iron Oral Capsule 11/26/2022 Provider: Diagnosis: Last Documented On 3 3:27PM By AFSANEH BARONE ; [facility] Pravastatin Sodium 10 MG Oral Tablet 11/26/2022 Prov ider: Diagnosis: Last Documented On 3 3:27PM By AFSANEH BARONE ; [facility] Tylenol Extra Strength 500 MG Oral Tablet 11/26/2022 Provider: Diagnosis: Last Documented On 3 3:27PM By AFSANEH BARONE ; [facility] Alendronate Sodium 70 MG Oral Tablet 11/26/2022 Prov ider: Diagnosis: 1 weekly. Last Documented On 3 3:27PM By AFSANEH BARONE ; [facility] Carvedilol 12.5 MG Oral Tablet 11/26/2022 Provider: Diagnosis: Last Documented On 3 3:27PM By AFSANEH BARONE ; [facility] Past Medications on file Nystatin [id number] UNIT/GM External Cream 08/18/2023 - 09/17/2023 Provider: LIZABETH BAPTISTE Diagnosis: Candidiasis, unspecified apply to buttocks 2 times daily Last Documented On 4 10:21AM By AFSANEH BARONE ; [facility] Fluconazole 100 MG Oral Tablet 08/18/2023 - 08/28/2023 Provider: LIZABETH BAPTISTE Diagnosis: Candidiasis, unspecified take 1 tablet today and then repeat in 1 week Last Documented On 4 10:21AM By AFSANEH YU- ; [facility] Medications Administered Includes: [...] 99 Last Documented: On 02/17/2023 9:53AM ; [facility] Results Includes: Results [...] numbness. Denies any motor weakness. 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 She understands she needs a cdl driver and was given the procedure without [...] 11/26/2022 Last Documented On 3 9:46AM ; [facility] Tobacco non-user 11/26/2022 Last Documented On 3 9:46AM ; [facility] Difficulty walking 11/26/2022 Last Documented On 3 9:46AM ; [facility] No consumption of alcohol 11/26/2022 Last Documented On 3 9:46AM ; [facility] Not using drugs 11/26/2022 Last Documented On 3 9:46AM ; [facility] Smoking Status Unknown Procedures and Surgical History Includes: Procedures from this encounter Procedures Code Diagnosis Performing Provider Service L ocation Service Date use of tobacco assessment performed 1000F Last Documented On 3 9:46AM ; [facility] review of medications documented 1160F Last Documented On 3 9:46AM ; [facility] screening for adult depression: impressi on and score five Last Documented On 3 9:46AM ; [facility] standardized depression screening: posit tena for symptoms Last Documented On 3 9:46AM ; [facility] Reviewed & agreed to staff entries. Last Documented On 3 9:46AM ; [facility] Clinical summary provided to patient Last Documented On 3 9:46AM ; [facility] SOAPP-R: total score 27 Last Documented On 3 9:46AM ; [facility] Surgical History Last Updated History of cholecystectomy 11/26/2022 Last Documented On 3 9:46AM ; [facility] History of hysterectomy 11/26/2022 Last Documented On 3 9:46AM ; [facility] History of Primary Knee Arthroplasty Rig ht 11/26/2022 Last Documented On 3 9:46AM ; [facility] Prior surgery Gatric Lap Band 11/26/2022 Last Documented On 3 9:46AM ; [facility] No Pacemaker 11/26/2022 Last Documented On 3 9:46AM ; [facility] Medical History Includes: Medical History addressed during this encounter Description Last Updated Has had no fall in the last 12 months. 0 08/18/2023 Last Documented On 3 9:46AM ; [facility] Denies a fear of falling. 05/09/2023 Last Documented On 3 9:46AM ; [facility] History of cancer Colon w/ Hemicolectomy in 40's 11/26/2022 Last Documented On 3 9:46AM ; [facility] lead care manager 11/26/2022 Last Documented On 3 9:46AM ; [facility] CT/MRI Back legs 11/26/2022 Last Documented On 3 9:46AM ; [facility] Exposure to a lot of bright sunlight 02/2023 Last Documented On 3 9:46AM ; [facility] Moderate to severe pain 11/26/2022 Last Documented On 3 9:46AM ; [facility] No Pain Pump 11/26/2022 Last Documented On 3 9:46AM ; [facility] No Spinal cord stimulator 11/26/2022 Last Documented On 3 9:46AM ; [facility] Physical therapy 11/26/2022 Last Documented On 3 9:46AM ; [facility] Please list all illnesses/co nditions you have been diagnosed with: Colon cancer. depression anxietytia in right eyearthritis bladder problems 11/26/2022 Last Documented On 3 9:46AM ; [facility] Please list all surgeries: Sleeve weight loss. 2011colon cancer. 1988-11/26/2022 Last Documented On 3 9:46AM ; [facility] Treatment with TENS unit 11/26/2022 Last Documented On 3 9:46AM ; [facility] Ultrasound Legs 11/26/2022 Last Documented On 3 9:46AM ; [facility] X-rays Legs. hips 11/26/2022 Last Documented On 3 9:46AM ; [facility] Family History Includes: Family History addressed during this encounter Description Last Updated Family history of diabetes mellitus Sist er 11/26/2022 Last Documented On 3 9:46AM ; [facility] Father Dementia 11/26/2022 Last Documented On 3 9:46AM ; [facility] Mother CVA ~OA ~RA 11/26/2022 Last Documented On 3 9:46AM ; [facility] Family history of Arthritis 11/26/2022 Last Documented On 3 9:46AM ; [facility] Maternal history of Arthritis 11/26/2022 Last Documented On 3 9:46AM ; [facility] Maternal history of family history of ki dney disease 11/26/2022 Last Documented On 3 9:46AM ; [facility] Sororal history of Arthritis 11/26/2022 Last Documented On 3 9:46AM ; [facility] Review of Systems Includes: Review of [...] e Last Documented On 4 9:45AM ; [facility] Encounters Encounter Provider Location Date Check-In Time Check-Out Time Diagnosis PAIN MANAGEMENT FOLLOW UP AFSANEH CLIFFORD PIPE PRODUCTION WORKER-FPA, PROJ ENGINEER-BC [facility] 02/18/20 23 9:42AM 10:07AM Spinal Stenosis Lumbar,Chronic Pain Syndrome,Sacro iliitis,Lumbar Radiculopathy, Chronic Kidney Disease Stage 2,Fibromyalgia ,Dorsopathy Low Back Pain,Cervical Spondylosis Insurance Includes: Active Insurance Policies Plan Name Member ID Group # Subscriber Relationship Effect tena Dates 1 - MEDICARE PART A CLAIMS/NGS [id number] ANA MADRIDS Self 03/17/2011 - Unknown 2 - [employer] [id number] PLAN F ANA Shabazz KALI Self 05/15/2017 - Unknown Clinical Notes Includes: Clinical Notes from this encounter * Progress note Date Encounter Last Documented by 02/17/2023 PAIN MANAGEMENT FOLLOW UP Last d ocumented on 02/17/2023; 10:09 AM, AFSANEH Banda DARRIN PIPE PRODUCTION WORKER-FPA, PROJ ENGINEER-BC; [facility] Active Problems & Conditions - [...] numbness. Denies any motor weakness. 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 She understands she needs a cdl driver and was given the procedure without [...] days, 0 refills Past Medical/Surgical History Reported: lead care manager, 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 depression anxietytia in right eyearthritis bladder problems, and Please list all surgeries: Sleeve weight loss. 2010[place] cancer. . Medical: Moderate to severe pain. [...] Affect normal. No pain behaviors. Skin: Normal. [place], warm, dry. Tests Educational Testing: Questionnaires PHQ-9: [...] the first of the year. Octavio PT [place] please EndCited Patient was seen today for [...] notes, laboratory data, patient self-report questionnaires, and [employer] prescription monitoring database entries. Significant social barriers exist to compliance resulting in limited prognosis. Decision to proceed with interventional therapies was made at the time of today's visit. Practice Management Use of tobacco assessment performed Review of medications documented; Standardized depression screening: positive for symptoms and for adult impression and score five; [30903] Established outpatient, medically appropriate H&P, moderate level [...] but may be subject to typographical or drywall application supervisor errors. Verify all diagnoses, medications, dosages, and [...]
--- OUTSIDE RECORDS SUMMARY | 2024-06-25 12:51 | XMS_ITS | CONTINUITY OF CARE DOCUMENT ---
Author Name [facility] Address Unknown Organization [facility] Address [address] [place] [address] Phone [phone] Care Team Providers Care Endoscopy Tech Name Role Phone Jose SKY, Isidoro Unavailable DOMENIC PERRY MD Unavailable DOMENIC PERRY MD Unavailable [phone] INSURANCE PROVIDERS Payer name Policy type / Coverage type [place] red libertarian ID [employer] Cost Effective Data insurance [employer] [id number] [place] Medicare [id number]
--- OUTSIDE RECORDS SUMMARY | 2024-06-25 12:51 | XMS_ITS | Referral Summary ---
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
--- OUTSIDE RECORDS SUMMARY | 2024-06-25 12:51 | XMS_ITS | Clinical Summary ---
Author Organization [facility] Address [address] [place] [address] Phone Care Team Providers Care Football Scout Name Role Phone DOMENIC PERRY MD Primary Care Provider [phone] Reason for Visit and Chief Complaint POST PROCEDURE PHONE CALL Problems Includes: Problems addressed during this encounter and other active Problems All Visits Onset Date Resolved Date Provider Condition S tatus Depression Unknown AFSANEH G DARRIN SURVEILLANCE OBSERVER-FPA, CUTTER OPERATOR-BC Active Last Documented On 3 2:10PM ; [facility] Anxiety Disorder Nos Unknown AFSANEH G DARRIN SURVEILLANCE OBSERVER-FPA, CUTTER OPERATOR-BC Active Last Documented On 3 2:10PM ; [facility] Osteopenia Unknown AFSANEH G DARRIN SURVEILLANCE OBSERVER-FPA, CUTTER OPERATOR-BC Active Last Documented On 3 2:12PM ; [facility] Chronic Kidney Disease Stage 2 Unknown ANTHONY SA G DARRIN SURVEILLANCE OBSERVER-FPA, CUTTER OPERATOR-BC Active Last Documented On 3 2:12PM ; [facility] Hyperlipidemia Unknown AFSANEH G DARRIN SURVEILLANCE OBSERVER-F PA, CUTTER OPERATOR-BC Active Last Documented On 3 2:12PM ; [facility] Labile Hypertension Unknown AFSANEH G DARRIN A PRN-FPA, CUTTER OPERATOR-BC Active Last Documented On 3 2:11PM ; [facility] Iron Deficiency Anemia Unknown AFSANEH G KUL P SURVEILLANCE OBSERVER-FPA, CUTTER OPERATOR-BC Active Last Documented On 3 2:11PM ; [facility] Myalgia and Myositis Unknown AFSANEH G DARRIN SURVEILLANCE OBSERVER-OSCAR, CUTTER OPERATOR-BC Active Last Documented On 3 2:11PM ; [facility] Obesity Unknown AFSANEH Banda DARRIN SURVEILLANCE OBSERVER-FPA, CUTTER OPERATOR-BC Active Last Documented On 3 2:12PM ; [facility] Osteoarthritis Unknown AFSANEH Banda JIMMYMele P TERRY-FPWellington, CUTTER OPERATOR-BC Active Last Documented On 3 2:11PM ; [facility] Note: multiple joints Plan [...] 4 10:09AM By AFSANEH BARONE ; [facility] Prevagen 10 MG Oral Capsule 08/18/2023 Provider: Diagnosis: Last Documented On 4 10:09AM By AFSANEH BARONE ; [facility] DULoxetine HCl 60 MG Oral Ca psule Delayed Release Particles 08/01/2023 Provider: LIZABETH BAPTISTE Diagnosis: 1 CAPSULE DAILY AT BEDTIME Last Documented On 4 10:09AM By AFSANEH BARONE ; [facility] Aspirin EC Low Strength 81 MG Oral Tablet Delayed Rele ase 11/26/2022 Provider: Diagnosis: Last Documented On 3 3:27PM By AFSANEH BARONE ; [facility] traMADol HCl 50 MG Oral Tablet 11/26/2022 Provider: Diagnosis: one tablet a day. Last Documented On 3 3:27PM By AFSANEH BARONE ; [facility] Montelukast Sodium 10 MG Oral Tablet 11/26/2022 Prov ider: Diagnosis: Last Documented On 3 3:27PM By AFSANEH BARONE ; [facility] Verapamil HCl ER 240 MG Oral Capsule Extended Re lease 24 Hour 11/26/2022 Provider: Diagnosis: Last Documented On 3 3:27PM By AFSANEH BARONE ; [facility] Ativan 0.5 MG Oral Tablet 11/26/2022 Provider: Diagnosis: 2 tablets at bedtime. Last Documented On 3 3:27PM By AFSANEH BARONE ; [facility] Bariatric Multivitamins/Iron Oral Capsule 11/26/2022 Provider: Diagnosis: Last Documented On 3 3:27PM By AFSANEH BARONE ; [facility] Pravastatin Sodium 10 MG Oral Tablet 11/26/2022 Prov ider: Diagnosis: Last Documented On 3 3:27PM By AFSANEH BARONE ; [facility] Tylenol Extra Strength 500 MG Oral Tablet 11/26/2022 Provider: Diagnosis: Last Documented On 3 3:27PM By AFSANEH BARONE ; [facility] Alendronate Sodium 70 MG Oral Tablet 11/26/2022 Prov ider: Diagnosis: 1 weekly. Last Documented On 3 3:27PM By AFSANEH BARONE ; [facility] Carvedilol 12.5 MG Oral Tablet 11/26/2022 Provider: Diagnosis: Last Documented On 3 3:27PM By AFSANEH BARONE ; [facility] Past Medications on file Nystatin [id number] UNIT/GM External Cream 08/18/2023 - 09/17/2023 Provider: LIZABETH BAPTISTE Diagnosis: Candidiasis, unspecified apply to buttocks 2 times daily Last Documented On 4 10:21AM By AFSANEH BARONE ; [facility] Fluconazole 100 MG Oral Tablet 08/18/2023 - 08/28/2023 Provider: LIZABETH BAPTISTE Diagnosis: Candidiasis, unspecified take 1 tablet today and then repeat in 1 week Last Documented On 4 10:21AM By AFSANEH BARONE ; [facility] Medications Administered Includes: Administered Medications from this encounter No Administered Medications Recorded Results Includes: Results discussed during this encounter No Results Recorded For Specified Dates History of Present Illness Includes: History of Present Illness from this encounter No History of Present Illness Recorded Social History Description Last Updated 11/26/2022 Last Documented On 4 9:33AM ; [facility] Tobacco non-user 11/26/2022 Last Documented On 4 9:33AM ; [facility] Difficulty walking 11/26/2022 Last Documented On 4 9:33AM ; [facility] No consumption of alcohol 11/26/2022 Last Documented On 4 9:33AM ; [facility] Not using drugs 11/26/2022 Last Documented On 4 9:33AM ; [facility] Smoking Status Unknown Procedures and Surgical History Surgical History Last Updated History of cholecystectomy 11/26/2022 Last Documented On 4 9:33AM ; [facility] History of hysterectomy 11/26/2022 Last Documented On 4 9:33AM ; [facility] History of Primary Knee Arthroplasty Rig ht 11/26/2022 Last Documented On 4 9:33AM ; [facility] Prior surgery Gatric Lap Band 11/26/2022 Last Documented On 4 9:33AM ; [facility] No Pacemaker 11/26/2022 Last Documented On 4 9:33AM ; [facility] Medical History Includes: Medical History addressed during this encounter Description Last Updated Has had no fall in the last 12 months. 0 08/18/2023 Last Documented On 4 9:33AM ; [facility] Has a fear of falling. 05/09/2023 Last Documented On 4 9:33AM ; [facility] History of cancer Colon w/ Hemicolectomy in 40's 11/26/2022 Last Documented On 4 9:33AM ; [facility] morning caregiver 11/26/2022 Last Documented On 4 9:33AM ; [facility] CT/MRI Back legs 11/26/2022 Last Documented On 4 9:33AM ; [facility] Exposure to a lot of bright sunlight 02/2023 Last Documented On 4 9:33AM ; [facility] Moderate to severe pain 11/26/2022 Last Documented On 4 9:33AM ; [facility] No Pain Pump 11/26/2022 Last Documented On 4 9:33AM ; [facility] No Spinal cord stimulator 11/26/2022 Last Documented On 4 9:33AM ; [facility] Physical therapy 11/26/2022 Last Documented On 4 9:33AM ; [facility] Please list all illnesses/co nditions you have been diagnosed with: Colon cancer. depression anxietytia in right eyearthritis bladder problems 11/26/2022 Last Documented On 4 9:33AM ; [facility] Please list all surgeries: Sleeve weight loss. 2011colon cancer. 1989-11/26/2022 Last Documented On 4 9:33AM ; [facility] Treatment with TENS unit 11/26/2022 Last Documented On 4 9:33AM ; [facility] Ultrasound Legs 11/26/2022 Last Documented On 4 9:33AM ; [facility] X-rays Legs. hips 11/26/2022 Last Documented On 4 9:33AM ; [facility] Family History Includes: Family History addressed during this encounter Description Last Updated Family history of diabetes mellitus Sist er 11/26/2022 Last Documented On 4 9:33AM ; [facility] Father Dementia 11/26/2022 Last Documented On 4 9:33AM ; [facility] Mother CVA ~OA ~RA 11/26/2022 Last Documented On 4 9:33AM ; [facility] Family history of Arthritis 11/26/2022 Last Documented On 4 9:33AM ; [facility] Maternal history of Arthritis 11/26/2022 Last Documented On 4 9:33AM ; [facility] Maternal history of family history of ki dney disease 11/26/2022 Last Documented On 4 9:33AM ; [facility] Sororal history of Arthritis 11/26/2022 Last Documented On 4 9:33AM ; [facility] Review of Systems Includes: Review [...] e Last Documented On 4 9:45AM ; [facility] Encounters Encounter Provider Location Date Check-In Time Check-Out Time Diagnosis POST PROCEDURE PHONE CALL AFSANEH CLIFFORD APRN-FPA, GIGI-BC 05/27/2023 9:32AM 11:59PM Insurance Includes: Active Insurance Policies Plan Name Member ID Group # Subscriber Relationship Effect tena Dates 1 - MEDICARE PART A CLAIMS/NGS [id number] ANA GARLANDVINS Self 03/17/2011 - Unknown 2 - [employer] [id number] PLAN F ANA Shabazz KALI Self 05/15/2017 - Unknown Clinical Notes Includes: Clinical Notes from this encounter * Progress note Date Encounter Last Documented by 05/27/2023 POST PROCEDURE PHONE CALL Last d ocumented on 05/27/2023; 9:43 AM, Maria Elena Suarez RN; [facility] Top of Document Post-Procedural Patient [...] days, 0 refills Past Medical/Surgical History Reported: morning caregiver, Treatment with TENS unit, Physical therapy, [...]
--- OUTSIDE RECORDS SUMMARY | 2024-06-25 12:51 | XMS_ITS ---
Author Organization [facility] Address [address] [place] [address] Phone Care Team Providers Care Print Inspector Name Role Phone DOMENIC PERRY MD Primary Care Provider [phone] Problems Includes: Active, inactive, and resolved Problems All Visits Onset Date Resolved Date Provider Condition S tatus Depression Unknown AFSANEH G DARRIN DEPARTMENT CLINICIAN-FPA, PLANNED GIVING OFFICER-BC Active Last Documented On 3 2:10PM ; [facility] Anxiety Disorder Nos Unknown AFSANEH G DARRIN DEPARTMENT CLINICIAN-FPA, PLANNED GIVING OFFICER-BC Active Last Documented On 3 2:10PM ; [facility] Osteopenia Unknown AFSANEH G DARRIN DEPARTMENT CLINICIAN-FPA, PLANNED GIVING OFFICER-BC Active Last Documented On 3 2:12PM ; [facility] Chronic Kidney Disease Stage 2 Unknown ANTHONY SA G DARRIN DEPARTMENT CLINICIAN-FPA, PLANNED GIVING OFFICER-BC Active Last Documented On 3 2:12PM ; [facility] Hyperlipidemia Unknown AFSANEH G DARRIN DEPARTMENT CLINICIAN-F PA, PLANNED GIVING OFFICER-BC Active Last Documented On 3 2:12PM ; [facility] Labile Hypertension Unknown AFSANEH G DARRIN A PRN-FPA, PLANNED GIVING OFFICER-BC Active Last Documented On 3 2:11PM ; [facility] Iron Deficiency Anemia Unknown AFSANEH G KUL P DEPARTMENT CLINICIAN-FPA, PLANNED GIVING OFFICER-BC Active Last Documented On 3 2:11PM ; [facility] Myalgia and Myositis Unknown AFSANEH G DARRIN DEPARTMENT CLINICIAN-FPA, PLANNED GIVING OFFICER-BC Active Last Documented On 3 2:11PM ; [facility] Obesity Unknown AFSANEH Banda DARRIN DEPARTMENT CLINICIAN-FPA, PLANNED GIVING OFFICER-BC Active Last Documented On 3 2:12PM ; [facility] Osteoarthritis Unknown AFSANEH Banda KUL P DEPARTMENT CLINICIAN-FPA, PLANNED GIVING OFFICER-BC Active Last Documented On 3 2:11PM ; [facility] Note: multiple joints Plan of Treatment Education and Decision Aids were provided during visit for: Pill Count: Tramadol Dr. Gerard raygoza Last Documented On 4 2:43PM ; [facility] Pill Count: Tramadol [per PC P] Last Documented On 4 9:39AM ; [facility] Pill Count: Tramadol [per PC P] Last Documented On 3 9:46AM ; [facility] Pill Count: Tramadol [per PC P] Last Documented On 3 11:04AM ; [facility] Pill Count: Tramadol [per PC P] Last Documented On 3 3:29PM ; [facility] Assessments Includes: Assessments for all patient encounters Findings Encounter Date Cervical spondylosis PAIN MANAGEMENT FOL LOW UP with AFSANEH Banda DARRIN DEPARTMENT CLINICIAN-FPA, PLANNED GIVING OFFICER-BC 08/18/2023 Last Documented On 4 10:16AM ; [facility] Chronic kidney disease, stage 2 PAIN MAN AGEMENT FOLLOW UP with AFSANEH Banda DARRIN DEPARTMENT CLINICIAN-FPA, PLANNED GIVING OFFICER-BC 08/18/2023 Last Documented On 4 10:16AM ; [facility] Chronic pain syndrome PAIN MANAGEMENT FO LLOW UP with AFSANEH Veronika DARRIN DEPARTMENT CLINICIAN-FPA, PLANNED GIVING OFFICER-BC 08/18/2023 Last Documented On 4 10:16AM ; [facility] Fibromyalgia PAIN MANAGEMENT FOLL OW UP with AFSANEH G DARRIN DEPARTMENT CLINICIAN-FPA, PLANNED GIVING OFFICER-BC 08/18/2023 Last Documented On 4 10:16AM ; [facility] Low back pain PAIN MANAGEMENT FOLL OW UP with AFSANEH G DARRIN DEPARTMENT CLINICIAN-FPA, PLANNED GIVING OFFICER-BC 08/18/2023 Last Documented On 4 10:16AM ; [facility] Lumbar radiculopathy PAIN MANAGEMENT FOL LOW UP with AFSANEH G DARRIN DEPARTMENT CLINICIAN-FPA, PLANNED GIVING OFFICER-BC 08/18/2023 Last Documented On 4 10:16AM ; [facility] Lumbar stenosis PAIN MANAGEMENT FOLL OW UP with AFSANEH G DARRIN DEPARTMENT CLINICIAN-FPA, PLANNED GIVING OFFICER-BC 08/18/2023 Last Documented On 4 10:16AM ; [facility] Sacroiliitis PAIN MANAGEMENT FOLL OW UP with AFSANEH G DARRIN DEPARTMENT CLINICIAN-FPA, PLANNED GIVING OFFICER-BC 08/18/2023 Last Documented On 4 10:16AM ; [facility] Cervical spondylosis PAIN MANAGEMENT FOL LOW UP with AFSANEH G DARRIN DEPARTMENT CLINICIAN-FPA, PLANNED GIVING OFFICER-BC 06/17/2023 Last Documented On 4 3:53PM ; [facility] Chronic kidney disease, stage 2 PAIN MAN AGEMENT FOLLOW UP with AFSANEH G DARRIN DEPARTMENT CLINICIAN-FPA, PLANNED GIVING OFFICER-BC 06/17/2023 Last Documented On 4 3:53PM ; [facility] Chronic pain syndrome PAIN MANAGEMENT FO LLOW UP with AFSANEH G DARRIN DEPARTMENT CLINICIAN-FPA, PLANNED GIVING OFFICER-BC 06/17/2023 Last Documented On 4 3:53PM ; [facility] Fibromyalgia PAIN MANAGEMENT FOLL OW UP with AFSANEH G DARRIN DEPARTMENT CLINICIAN-FPA, PLANNED GIVING OFFICER-BC 06/17/2023 Last Documented On 4 3:53PM ; [facility] Low back pain PAIN MANAGEMENT FOLL OW UP with AFSANEH G DARRIN DEPARTMENT CLINICIAN-FPA, PLANNED GIVING OFFICER-BC 06/17/2023 Last Documented On 4 3:53PM ; [facility] Lumbar radiculopathy PAIN MANAGEMENT FOL LOW UP with AFSANEH G DARRIN DEPARTMENT CLINICIAN-FPA, PLANNED GIVING OFFICER-BC 06/17/2023 Last Documented On 4 3:53PM ; [facility] Lumbar stenosis PAIN MANAGEMENT FOLL OW UP with AFSANEH G DARRIN DEPARTMENT CLINICIAN-FPA, PLANNED GIVING OFFICER-BC 06/17/2023 Last Documented On 4 3:53PM ; [facility] Sacroiliitis PAIN MANAGEMENT FOLL OW UP with AFSANEH G DARRIN DEPARTMENT CLINICIAN-FPA, PLANNED GIVING OFFICER-BC 06/17/2023 Last Documented On 4 3:53PM ; [facility] Cervical spondylosis PAIN MANAGEMENT FOL LOW UP with AFSANEH Veronika DARRIN DEPARTMENT CLINICIAN-FPA, PLANNED GIVING OFFICER-BC 05/09/2023 Last Documented On 4 10:19AM ; [facility] Chronic kidney disease, stage 2 PAIN MAN AGEMENT FOLLOW UP with AFSANEH Veronika DARRIN DEPARTMENT CLINICIAN-FPA, PLANNED GIVING OFFICER-BC 05/09/2023 Last Documented On 4 10:19AM ; [facility] Chronic pain syndrome PAIN MANAGEMENT FO LLOW UP with AFSANEH G DARRIN DEPARTMENT CLINICIAN-FPA, PLANNED GIVING OFFICER-BC 05/09/2023 Last Documented On 4 10:19AM ; [facility] Fibromyalgia PAIN MANAGEMENT FOLL OW UP with AFSANEH Veronika DARRIN DEPARTMENT CLINICIAN-FPA, PLANNED GIVING OFFICER-BC 05/09/2023 Last Documented On 4 10:19AM ; [facility] Low back pain PAIN MANAGEMENT FOLL OW UP with AFSANEH Veronika DARRIN DEPARTMENT CLINICIAN-FPA, PLANNED GIVING OFFICER-BC 05/09/2023 Last Documented On 4 10:19AM ; [facility] Lumbar radiculopathy PAIN MANAGEMENT FOL LOW UP with AFSANEH Veronika DARRIN DEPARTMENT CLINICIAN-FPA, PLANNED GIVING OFFICER-BC 05/09/2023 Last Documented On 4 10:19AM ; [facility] Lumbar stenosis PAIN MANAGEMENT FOLL OW UP with AFSANEH Veronika DARRIN DEPARTMENT CLINICIAN-FPA, PLANNED GIVING OFFICER-BC 05/09/2023 Last Documented On 4 10:19AM ; [facility] Sacroiliitis PAIN MANAGEMENT FOLL OW UP with AFSANEH G DARRIN DEPARTMENT CLINICIAN-FPA, PLANNED GIVING OFFICER-BC 05/09/2023 Last Documented On 4 10:19AM ; [facility] Cervical spondylosis PAIN MANAGEMENT FOL LOW UP with AFSANEH G DARRIN DEPARTMENT CLINICIAN-FPA, PLANNED GIVING OFFICER-BC 02/17/2023 Last Documented On 3 10:09AM ; [facility] Chronic kidney disease, stage 2 PAIN MAN AGEMENT FOLLOW UP with AFSANEH G DARRIN DEPARTMENT CLINICIAN-FPA, PLANNED GIVING OFFICER-BC 02/17/2023 Last Documented On 3 10:09AM ; [facility] Chronic pain syndrome PAIN MANAGEMENT FO LLOW UP with AFSANEH Veronika DARRIN DEPARTMENT CLINICIAN-FPA, PLANNED GIVING OFFICER-BC 02/17/2023 Last Documented On 3 10:09AM ; [facility] Fibromyalgia PAIN MANAGEMENT FOLL OW UP with AFSANEH G DARRIN DEPARTMENT CLINICIAN-FPA, PLANNED GIVING OFFICER-BC 02/17/2023 Last Documented On 3 10:09AM ; [facility] Low back pain PAIN MANAGEMENT FOLL OW UP with AFSANEH Veronika DARRIN DEPARTMENT CLINICIAN-FPA, PLANNED GIVING OFFICER-BC 02/17/2023 Last Documented On 3 10:09AM ; [facility] Lumbar radiculopathy PAIN MANAGEMENT FOL LOW UP with AFSANEH G DARRIN DEPARTMENT CLINICIAN-FPA, PLANNED GIVING OFFICER-BC 02/17/2023 Last Documented On 3 10:09AM ; [facility] Lumbar stenosis PAIN MANAGEMENT FOLL OW UP with AFSANEH G DARRIN DEPARTMENT CLINICIAN-FPA, PLANNED GIVING OFFICER-BC 02/17/2023 Last Documented On 3 10:09AM ; [facility] Sacroiliitis PAIN MANAGEMENT FOLL OW UP with AFSANEH G DARRNI DEPARTMENT CLINICIAN-FPA, PLANNED GIVING OFFICER-BC 02/17/2023 Last Documented On 3 10:09AM ; [facility] Chronic kidney disease, stage 2 PAIN MAN AGEMENT FOLLOW UP with AFSANEH Veronika DARRIN DEPARTMENT CLINICIAN-FPA, PLANNED GIVING OFFICER-BC 01/10/2023 Last Documented On 3 11:30AM ; [facility] Chronic pain syndrome PAIN MANAGEMENT FO LLOW UP with AFSANEH G DARRIN DEPARTMENT CLINICIAN-FPA, PLANNED GIVING OFFICER-BC 01/10/2023 Last Documented On 3 11:30AM ; [facility] Fibromyalgia PAIN MANAGEMENT FOLL OW UP with AFSANEH G DARRIN DEPARTMENT CLINICIAN-FPA, PLANNED GIVING OFFICER-BC 01/10/2023 Last Documented On 3 11:30AM ; [facility] Low back pain PAIN MANAGEMENT FOLL OW UP with AFSANEH G DARRIN DEPARTMENT CLINICIAN-FPA, PLANNED GIVING OFFICER-BC 01/10/2023 Last Documented On 3 11:30AM ; [facility] Lumbar radiculopathy PAIN MANAGEMENT FOL LOW UP with AFSANEH G DARRIN DEPARTMENT CLINICIAN-FPA, PLANNED GIVING OFFICER-BC 01/10/2023 Last Documented On 3 11:30AM ; [facility] Lumbar stenosis PAIN MANAGEMENT FOLL OW UP with AFSANEH Veronika DARRIN DEPARTMENT CLINICIAN-FPA, PLANNED GIVING OFFICER-BC 01/10/2023 Last Documented On 3 11:30AM ; [facility] Sacroiliitis PAIN MANAGEMENT FOLL OW UP with AFSANEH Veronika DARRIN DEPARTMENT CLINICIAN-FPA, PLANNED GIVING OFFICER-BC 01/10/2023 Last Documented On 3 11:30AM ; [facility] Chronic kidney disease, stage 2 PAIN MAN AGEMENT NEW CONSULT with AFASNEH Banda DARRIN DEPARTMENT CLINICIAN-FPA, PLANNED GIVING OFFICER-BC 11/26/2022 Last Documented On 3 3:29PM ; [facility] Chronic pain syndrome PAIN MANAGEMENT NE W CONSULT with AFSANEH G DARRIN DEPARTMENT CLINICIAN-FPA, PLANNED GIVING OFFICER-BC 11/26/2022 Last Documented On 3 3:29PM ; [facility] Fibromyalgia PAIN MANAGEMENT NEW CONSULT with AFSANEH Veronika DARRIN DEPARTMENT CLINICIAN-FPA, PLANNED GIVING OFFICER-BC 11/26/2022 Last Documented On 3 3:29PM ; [facility] Low back pain PAIN MANAGEMENT NEW CONSULT with AFSANEH Veronika DARRIN DEPARTMENT CLINICIAN-FPA, PLANNED GIVING OFFICER-BC 11/26/2022 Last Documented On 3 3:29PM ; [facility] Lumbar radiculopathy PAIN MANAGEMENT NEW CONSULT with AFSANEH G DARRIN DEPARTMENT CLINICIAN-FPA, PLANNED GIVING OFFICER-BC 11/26/2022 Last Documented On 3 3:29PM ; [facility] Lumbar stenosis PAIN MANAGEMENT NEW CONSULT with AFSANEH Veronika DARRIN DEPARTMENT CLINICIAN-FPA, PLANNED GIVING OFFICER-BC 11/26/2022 Last Documented On 3 3:29PM ; [facility] Instructions Includes: Instructions for all patient encounters Education and Decision Aids were provided during visit for: Pill Count: Tramadol Dr. Gerard raygoza Last Documented On 4 2:43PM ; [facility] Pill Count: Tramadol [per PC P] Last Documented On 4 9:39AM ; [facility] Pill Count: Tramadol [per PC P] Last Documented On 3 9:46AM ; [facility] Pill Count: Tramadol [per PC P] Last Documented On 3 11:04AM ; [facility] Pill Count: Tramadol [per PC P] Last Documented On 3 3:29PM ; [facility] Medical Equipment - Implanted Devices [...] On 4 10:09AM By AFSANEH BARONE ; [facility] Prevagen 10 MG Oral Capsule 08/18/2023 Provider: Diagnosis: Last Documented On 4 10:09AM By AFSANEH BARONE ; [facility] DULoxetine HCl 60 MG Oral Ca psule Delayed Release Particles 08/01/2023 Provider: LIZABETH BAPTISTE Diagnosis: 1 CAPSULE DAILY AT BEDTIME Last Documented On 4 10:09AM By AFSANEH BARONE ; [facility] Aspirin EC Low Strength 81 MG Oral Tablet Delayed Rele ase 11/26/2022 Provider: Diagnosis: Last Documented On 3 3:27PM By AFSANEH BARONE ; [facility] traMADol HCl 50 MG Oral Tablet 11/26/2022 Provider: Diagnosis: one tablet a day. Last Documented On 3 3:27PM By AFSANEH BARONE ; [facility] Montelukast Sodium 10 MG Oral Tablet 11/26/2022 Prov ider: Diagnosis: Last Documented On 3 3:27PM By AFSANEH BARONE ; [facility] Verapamil HCl ER 240 MG Oral Capsule Extended Re lease 24 Hour 11/26/2022 Provider: Diagnosis: Last Documented On 3 3:27PM By AFSANEH BARONE ; [facility] Ativan 0.5 MG Oral Tablet 11/26/2022 Provider: Diagnosis: 2 tablets at bedtime. Last Documented On 3 3:27PM By AFSANEH BARONE ; [facility] Bariatric Multivitamins/Iron Oral Capsule 11/26/2022 Provider: Diagnosis: Last Documented On 3 3:27PM By AFSANEH BARONE ; [facility] Pravastatin Sodium 10 MG Oral Tablet 11/26/2022 Prov ider: Diagnosis: Last Documented On 3 3:27PM By AFSANEH BARONE ; [facility] Tylenol Extra Strength 500 MG Oral Tablet 11/26/2022 Provider: Diagnosis: Last Documented On 3 3:27PM By AFSANEH BARONE ; [facility] Alendronate Sodium 70 MG Oral Tablet 11/26/2022 Prov ider: Diagnosis: 1 weekly. Last Documented On 3 3:27PM By AFSANEH BARONE ; [facility] Carvedilol 12.5 MG Oral Tablet 11/26/2022 Provider: Diagnosis: Last Documented On 3 3:27PM By AFSANEH BARONE ; [facility] Past Medications on file Nystatin [id number] UNIT/GM External Cream 08/18/2023 - 09/17/2023 Provider: LIZABETH BAPTISTE Diagnosis: Candidiasis, unspecified apply to buttocks 2 times daily Last Documented On 4 10:21AM By AFSANEH BARONE ; [facility] Fluconazole 100 MG Oral Tablet 08/18/2023 - 08/28/2023 Provider: LIZABETH BAPTISTE Diagnosis: Candidiasis, unspecified take 1 tablet today and then repeat in 1 week Last Documented On 4 10:21AM By AFSANEH BARONE ; [facility] DULoxetine HCl 60 MG Oral Capsule Delayed Release Particles 05/14/2023 - 08/01/2023 Provider: AFSANEH HIGGINS PLANNED GIVING OFFICER-SIERRA Diagnosis: 1 capsule daily at bedtime Last Documented On 4 10:41AM By AFSANEH BARONE ; [facility] DULoxetine HCl 30 MG Oral Ca psule Delayed Release Particles 11/26/2022 - 05/14/2023 Provider: Diagnosis: Last Documented On 4 12:21PM By AFSANEH BARONE ; [facility] Medications Administered Includes: Administered Medications in patient's chart No Administered Medications Recorded Vital Signs Includes: Vital Signs from 06/26/2023 through 06/25/2024 Vital Name 08/18/2023 09:49A Blood Pressure Sitting R 114/70 BP Cuff Size Regular Pulse Rate-Sitting (bpm) 77 Height (in) 65 Weight (lb) 191 Body Mass Index 31.8 Body Surface Area 1.9 Pain Level 5 Oxygen Saturation (%) 99 Last Documented: On 08/18/2023 9:51AM ; [facility] Results Includes: Results from 06/26/2023 through 06/25/2024 No Results Recorded For Specified Dates History of Present Illness History of Present Illness not supported for this document type No History of Present Illness Recorded Social History Description Last Updated 11/26/2022 Last Documented On 3 3:29PM ; [facility] Tobacco non-user 11/26/2022 Last Documented On 3 3:29PM ; [facility] Difficulty walking 11/26/2022 Last Documented On 3 3:29PM ; [facility] No consumption of alcohol 11/26/2022 Last Documented On 3 3:29PM ; [facility] Not using drugs 11/26/2022 Last Documented On 3 3:29PM ; [facility] Smoking Status Unknown Procedures and Surgical History Surgical History Last Updated History of cholecystectomy 11/26/2022 Last Documented On 3 3:29PM ; [facility] History of hysterectomy 11/26/2022 Last Documented On 3 3:29PM ; [facility] History of Primary Knee Arthroplasty Rig ht 11/26/2022 Last Documented On 3 3:29PM ; [facility] Prior surgery Gatric Lap Band 11/26/2022 Last Documented On 3 3:29PM ; [facility] No Pacemaker 11/26/2022 Last Documented On 3 3:29PM ; [facility] Medical History Includes: Medical History in patient's chart Description Last Updated Has had a fall in the last 12 months. On Mothers day 08/18/2023 Last Documented On 4 10:16AM ; [facility] Has a fear of falling. 05/09/2023 Last Documented On 4 10:19AM ; [facility] History of cancer Colon w/ Hemicolectomy in 40's 11/26/2022 Last Documented On 3 3:29PM ; [facility] medical care evaluation specialist 11/26/2022 Last Documented On 3 3:29PM ; [facility] CT/MRI Back legs 11/26/2022 Last Documented On 3 3:29PM ; [facility] Exposure to a lot of bright sunlight 02/2023 Last Documented On 3 3:29PM ; [facility] Moderate to severe pain 11/26/2022 Last Documented On 3 3:29PM ; [facility] No Pain Pump 11/26/2022 Last Documented On 3 3:29PM ; [facility] No Spinal cord stimulator 11/26/2022 Last Documented On 3 3:29PM ; [facility] Physical therapy 11/26/2022 Last Documented On 3 3:29PM ; [facility] Please list all illnesses/co nditions you have been diagnosed with: Colon cancer. depression anxietytia in right eyearthritis bladder problems 11/26/2022 Last Documented On 3 3:29PM ; [facility] Please list all surgeries: Sleeve weight loss. 2011colon cancer. 1988-11/26/2022 Last Documented On 3 3:29PM ; [facility] Treatment with TENS unit 11/26/2022 Last Documented On 3 3:29PM ; [facility] Ultrasound Legs 11/26/2022 Last Documented On 3 3:29PM ; [facility] X-rays Legs. hips 11/26/2022 Last Documented On 3 3:29PM ; [facility] Family History Includes: Family History in patient's chart Description Last Updated Family history of diabetes mellitus Sist er 11/26/2022 Last Documented On 3 3:29PM ; [facility] Father Dementia 11/26/2022 Last Documented On 3 3:29PM ; [facility] Mother CVA ~OA ~RA 11/26/2022 Last Documented On 3 3:29PM ; [facility] Family history of Arthritis 11/26/2022 Last Documented On 3 3:29PM ; [facility] Maternal history of Arthritis 11/26/2022 Last Documented On 3 3:29PM ; [facility] Maternal history of family history of ki dney disease 11/26/2022 Last Documented On 3 3:29PM ; [facility] Sororal history of Arthritis 11/26/2022 Last Documented On 3 3:29PM ; [facility] Review of Systems Review of Systems not [...] e Last Documented On 4 9:45AM ; [facility] Encounters Includes: Encounters from 06/26/2023 through 06/25/2024 Encounter Provider Location Date Check-In Time Check-Out Time Diagnosis PAIN MANAGEMENT FOLLOW UP AFSANEH CLIFFORD DEPARTMENT CLINICIAN-FPA, PLANNED GIVING OFFICER-BC [facility]-EA 08/18/19 24 9:44AM 10:11AM Cervical Spondylosis,S thuy Stenosis Lumbar,Chroni c Pain Syndrome,Sacr oiliitis,Lumb ar Radiculopathy ,Chronic Kidney Disease Stage 2,Fibromyalgi a,Dorsopathy Low Back Pain Insurance Includes: Active Insurance Policies Plan Name Member ID Group # Subscriber Relationship Effect tena Dates 1 - MEDICARE PART A CLAIMS/NGS [id number] ANA BASS Self 03/17/2011 - Unknown 2 - [employer] [id number] PLAN F ANA BASS Self 05/15/2017 - Unknown Clinical Notes Includes: Signed Clinical Notes starting from 04/05/2022 * Progress note Date Encounter Last Documented by 08/18/2023 PAIN MANAGEMENT FOLLOW UP Last d ocumented on 08/18/2023; 10:16 AM, AFSANEH CLIFFORD APRN-FPA, PLANNED GIVING OFFICER-BC; [facility] Active Problems & Conditions [...] numbness. Denies any motor weakness. 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 She understands she needs a lease purchase driver and was given the procedure without [...] days, 0 refills Past Medical/Surgical History Reported: medical care evaluation specialist, Treatment with TENS unit, Physical therapy, [...] Affect normal. No pain behaviors. Skin: Normal. [place], warm, dry. Tests Educational Testing: Questionnaires PHQ-9: [...] 1 week, 10 days, 0 refills Nystatin [id number] UNIT/GM gram apply to buttocks 2 times daily, 30 days, 0 refills EndCited StartCited - Other PHY ORDER/COMMENT please request CD images of MRI lumbar spine from [place] EndCited StartCited - Other spondylosis, cervical region [...] notes, laboratory data, patient self-report questionnaires, and [place] prescription monitoring database entries. Significant social barriers [...] and for adult impression and score five; [60662] Established outpatient, medically appropriate H&P, moderate level [...] but may be subject to typographical or game warden errors. Verify all diagnoses, medications, dosages, and [...]
--- OUTSIDE RECORDS SUMMARY | 2024-06-25 12:51 | XMS_ITS | Encounter Summary ---
Author Organization [facility] Address [address] [place] [id number] Care Team Providers Care Power Shear Operator Name Role Phone Darius Urbina MD Primary Care Provider [phone] Encounter Details Date Type Department Care Team (Late st Contact Info) Description 01/17/[address] [facility] [address] [place] [id number] Kirit Grace MD [address] [facility] 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
--- OUTSIDE RECORDS SUMMARY | 2024-06-25 12:52 | XMS_ITS | Clinical Summary ---
Author Organization [facility] Address [address] [place] [address] Phone Care Team Providers Care Records Manager Name Role Phone DOMENIC PERRY MD Primary Care Provider [phone] Reason for Visit and Chief Complaint The Chief Complaint is: 2 month follow up on pain Problems Includes: Problems addressed during this encounter and other active Problems Current Visit Onset Date Resolved Date Provider Conditio n Status Chronic Kidney Disease Stage 2 Unknown AFSANEH Banda DARRIN SENIOR SOFTWARE TEST ENGINEER-FPA, IN [place] Active Last Documented On 3 2:12PM ; [facility] Past Visits Onset Date Resolved Date Provider Condition Status Depression Unknown AFSANEH Banda DARRIN SENIOR SOFTWARE TEST ENGINEER-FPA, [place] Active Last Documented On 3 2:10PM ; [facility] Anxiety Disorder Nos Unknown AFSANEH Banda DARRIN SENIOR SOFTWARE TEST ENGINEER-FPA, [place] Active Last Documented On 3 2:10PM ; [facility] Osteopenia Unknown AFSANEH G DARRIN SENIOR SOFTWARE TEST ENGINEER-FPA, IN [place]-BC Active Last Documented On 3 2:12PM ; [facility] Hyperlipidemia Unknown AFSANEH Banda DARRIN SENIOR SOFTWARE TEST ENGINEER-F PA, IN [place] Active Last Documented On 3 2:12PM ; [facility] Labile Hypertension Unknown AFSANEH G DARRIN A PRN-FPA, [place] Active Last Documented On 3 2:11PM ; [facility] Iron Deficiency Anemia Unknown AFSANEH Veronika KUL P SENIOR SOFTWARE TEST ENGINEER-FPA, [place] Active Last Documented On 3 2:11PM ; [facility] Myalgia and Myositis Unknown AFSANEH CLIFFORD SENIOR SOFTWARE TEST ENGINEER-FPA, IN [place] Active Last Documented On 3 2:11PM ; [facility] Obesity Unknown AFSANEH MARQUEZLP SENIOR SOFTWARE TEST ENGINEER-FPA, [place] Active Last Documented On 3 2:12PM ; [facility] Osteoarthritis Unknown AFSANEH MARQUEZL P SENIOR SOFTWARE TEST ENGINEER-FPA, IN [place] Active Last Documented On 3 2:11PM ; [facility] Note: multiple joints Plan [...] - Last Documented On 08/18/2023 10:16AM ; [facility] Assessments Includes: Assessments from this encounter Findings - [N18.2 - Chronic kidney disease, stage 2 (mild)] Chronic kidney disease, stage 2 - Last Documented On 08/18/2023 10:16AM ; [facility] - [M46.1 - Sacroiliitis, not elsewhere classified] Sacroiliitis - Last Documented On 08/18/2023 10:16AM ; [facility] - [M47.892 - Other spondylosis, cervical region] Cervical spondylosis - Last Documented On 08/18/2023 10:16AM ; [facility] - [M54.50 - Low back pain, unspecified] Low back pain - Last Documented On 08/18/2023 10:16AM ; [facility] - [M48.061 - Spinal stenosis, lumbar region without neurogenic claudication] Lumbar stenosis - Last Documented On 08/18/2023 10:16AM ; [facility] - [M54.16 - Radiculopathy, lumbar region] Lumbar radiculopathy - Last Documented On 08/18/2023 10:16AM ; [facility] - [M79.7 - Fibromyalgia] Fibromyalgia - Last Documented On 08/18/2023 10:16AM ; [facility] - [G89.4 - Chronic pain syndrome] Chronic pain syndrome - Last Documented On 08/18/2023 10:16AM ; [facility] Medical Equipment - Implanted Devices Includes: Current Devices No Medical Equipment Recorded Medications Includes: Medications discussed during this encounter and other current Medications New / Renewed during this visit LIZABETH BAPTISTE on 08/18/2023 Nystatin [id number] UNIT/GM External Cream Provider: LIZABETH VASQUEZ 30 day supply: 30 gram, 0 refills Diagnosis: Candidiasis, unspecified apply to buttocks 2 times daily Pharmacy: [facility], [id number] - Last Documented On 4 10:21AM By AFSANEH BARONE ; [facility] Fluconazole 100 MG Oral Tablet Provider: LIZABETH BAPTISTE 10 day supply: 2 tablet, 0 refills Diagnosis: Candidiasis, unspecified take 1 tablet today and then repeat in 1 week [place]: [place], [id number] - Last Documented On 4 10:21AM By AFSANEH BARONE ; [facility] Methocarbamol 500 MG Oral Tablet Provider: AFSANEH OSORIO IN [place] 30 day supply: 90 tablet, 0 refills Diagnosis: Other spondylosis, cervical region One tablet three times a day as needed for neck or low back stiffness Pharmacy: [facility], [id number] - Last Documented On 4 10:09AM By AFSANEH BARONE ; [facility] Current Medications (continue as prescribed) Prevagen 10 MG Oral Capsule 08/18/2023 Provider: Diagnosis: Last Documented On 4 10:09AM By AFSANEH BARONE ; [facility] DULoxetine HCl 60 MG Oral Ca psule Delayed Release Particles 08/01/2023 Provider: CANDELARIA BAPTISTE Diagnosis: 1 CAPSULE DAILY AT BEDTIME Last Documented On 4 10:09AM By AFSANEH BARNESPWILLIE ; [facility] Aspirin EC Low Strength 81 MG Oral Tablet Delayed Rele ase 11/26/2022 Provider: Diagnosis: Last Documented On 3 3:27PM By AFSANEH BARONE ; [facility] traMADol HCl 50 MG Oral Tablet 11/26/2022 Provider: Diagnosis: one tablet a day. Last Documented On 3 3:27PM By AFS[facility]H CLIFFORD [facility] ; [facility] Montelukast Sodium 10 MG Oral Tablet 11/26/2022 Prov ider: Diagnosis: Last Documented On 3 3:27PM By AFSANEH BARONE ; [facility] Verapamil HCl ER 240 MG Oral Capsule Extended Re lease 24 Hour 11/26/2022 Provider: Diagnosis: Last Documented On 3 3:27PM By AFSANEH BARONE ; [facility] Ativan 0.5 MG Oral Tablet 11/26/2022 Provider: Diagnosis: 2 tablets at bedtime. Last Documented On 3 3:27PM By AFSANEH BARONE ; [facility] Bariatric Multivitamins/Iron Oral Capsule 11/26/2022 Provider: Diagnosis: Last Documented On 3 3:27PM By AFSANEH BARONE ; [facility] Pravastatin Sodium 10 MG Oral Tablet 11/26/2022 Prov ider: Diagnosis: Last Documented On 3 3:27PM By AFSANEH BARONE ; [facility] Tylenol Extra Strength 500 MG Oral Tablet 11/26/2022 Provider: Diagnosis: Last Documented On 3 3:27PM By AFSANEH BARONE ; [facility] Alendronate Sodium 70 MG Oral Tablet 11/26/2022 Prov ider: Diagnosis: 1 weekly. Last Documented On 3 3:27PM By AFSANEH BARONE ; [facility] Carvedilol 12.5 MG Oral Tablet 11/26/2022 Provider: Diagnosis: Last Documented On 3 3:27PM By AFSANEH YU- ; [facility] Medications Administered Includes: Administered [...] 99 Last Documented: On 08/18/2023 9:51AM ; [facility] Results Includes: Results discussed during this encounter [...] numbness. Denies any motor weakness. 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 and was given the procedure without [...] 11/26/2022 Last Documented On 4 9:44AM ; [facility] Tobacco non-user 11/26/2022 Last Documented On 4 9:44AM ; [facility] Difficulty walking 11/26/2022 Last Documented On 4 9:44AM ; [facility] No consumption of alcohol 11/26/2022 Last Documented On 4 9:44AM ; [facility] Not using drugs 11/26/2022 Last Documented On 4 9:44AM ; [facility] Smoking Status Unknown Procedures and Surgical History Includes: Procedures from this encounter Procedures Code Diagnosis Performing Provider Service L ocation Service Date use of tobacco assessment performed 1000F Last Documented On 4 9:44AM ; [facility] patient screened for future fall risk: documentation of any fall with injury in past year 1100F Last Documented On 4 9:44AM ; [facility] review of medications documented 1160F Last Documented On 4 9:44AM ; [facility] screening for adult depression: impressi on and score five Last Documented On 4 9:44AM ; [facility] standardized depression screening: posit tena for symptoms Last Documented On 4 9:44AM ; [facility] Reviewed & agreed to staff entries. Last Documented On 4 9:44AM ; [facility] Clinical summary provided to patient Last Documented On 4 9:44AM ; [facility] SOAPP-R: total score 27 Last Documented On 4 9:44AM ; [facility] Surgical History Last Updated History of cholecystectomy 11/26/2022 Last Documented On 4 9:44AM ; [facility] History of hysterectomy 11/26/2022 Last Documented On 4 9:44AM ; [facility] History of Primary Knee Arthroplasty Rig ht 11/26/2022 Last Documented On 4 9:44AM ; [facility] Prior surgery Gatric Lap Band 11/26/2022 Last Documented On 4 9:44AM ; [facility] No Pacemaker 11/26/2022 Last Documented On 4 9:44AM ; [facility] Medical History Includes: Medical History addressed during this encounter Description Last Updated Has had a fall in the last 12 months. On Mothers day 08/18/2023 Last Documented On 4 10:16AM ; [facility] Has a fear of falling. 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 11/26/2022 Last Documented On 4 9:44AM ; [facility] CT/MRI Back legs 11/26/2022 Last Documented On 4 9:44AM ; [facility] Exposure to a lot of bright sunlight 02/2023 Last Documented On 4 9:44AM ; [facility] Moderate to severe pain 11/26/2022 Last Documented On 4 9:44AM ; [facility] No Pain Pump 11/26/2022 Last Documented On 4 9:44AM ; [facility] No Spinal cord stimulator 11/26/2022 Last Documented On 4 9:44AM ; [facility] Physical therapy 11/26/2022 Last Documented On 4 9:44AM ; [facility] Please list all illnesses/co nditions you have been diagnosed with: Colon cancer. depression anxietytia in right eyearthritis bladder problems 11/26/2022 Last Documented On 4 9:44AM ; [facility] Please list all surgeries: Sleeve weight loss. 2011colon cancer. 11/26/2022 Last Documented On 4 9:44AM ; [facility] Treatment with TENS unit 11/26/2022 Last Documented On 4 9:44AM ; [facility] Ultrasound Legs 11/26/2022 Last Documented On 4 9:44AM ; [facility] X-rays Legs. hips 11/26/2022 Last Documented On 4 9:44AM ; [facility] Family History Includes: Family History addressed during this encounter Description Last Updated Family history of diabetes mellitus Sist er 11/26/2022 Last Documented On 4 9:44AM ; [facility] Father Dementia 11/26/2022 Last Documented On 4 9:44AM ; [facility] Mother CVA ~OA ~RA 11/26/2022 Last Documented On 4 9:44AM ; [facility] Family history of Arthritis 11/26/2022 Last Documented On 4 9:44AM ; [facility] Maternal history of Arthritis 11/26/2022 Last Documented On 4 9:44AM ; [facility] Maternal history of family history of ki dney disease 11/26/2022 Last Documented On 4 9:44AM ; [facility] Sororal history of Arthritis 11/26/2022 Last Documented On 4 9:44AM ; [facility] Review of Systems Includes: Review of [...] e Last Documented On 4 9:45AM ; [facility] Encounters Encounter Provider Location Date Check-In Time Check-Out Time Diagnosis PAIN MANAGEMENT FOLLOW UP AFSANEH CLIFFORD SENIOR SOFTWARE TEST ENGINEER-FPA, IN [place]-BC [facility] 08/18/19 24 9:44AM 10:11AM Cervical Spondylosis,S thuy Stenosis Lumbar,Chroni c Pain Syndrome,Sacr oiliitis,Lumb ar Radiculopathy ,Chronic Kidney Disease Stage 2,Fibromyalgi a,Dorsopathy Low Back Pain Insurance Includes: Active Insurance Policies Plan Name Member ID Group # Subscriber Relationship Effect tena Dates 1 - MEDICARE PART A CLAIMS/NGS [id number] ANA BASS Self 03/17/2011 - Unknown 2 - [employer] [id number] PLAN F ANA BASS Self 05/15/2017 - Unknown Clinical Notes Includes: Clinical Notes from this encounter * Progress note Date Encounter Last Documented by 08/18/2023 PAIN MANAGEMENT FOLLOW UP Last d ocumented on 08/18/2023; 10:16 AM, AFSANEH CLIFFORD APRN-FPA, IN [place]-BC; [facility] Active Problems & Conditions [...] numbness. Denies any motor weakness. 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 and was given the procedure without [...] days, 0 refills Past Medical/Surgical History Reported: post acute care registered nurse, Treatment with TENS unit, Physical therapy, Please [...] Affect normal. No pain behaviors. Skin: Normal. [place], warm, dry. Tests Educational Testing: Questionnaires PHQ-9: [...] 1 week, 10 days, 0 refills Nystatin [id number] UNIT/GM gram apply to buttocks 2 times daily, 30 days, 0 refills EndCited StartCited - Other PHY ORDER/COMMENT please request CD images of MRI lumbar spine from [place] EndCited StartCited - Other spondylosis, cervical region [...] notes, laboratory data, patient self-report questionnaires, and [place] prescription monitoring database entries. Significant social barriers [...] and for adult impression and score five; [63832] Established outpatient, medically appropriate H&P, moderate level [...] but may be subject to typographical or recreation officer errors. Verify all diagnoses, medications, dosages, and [...]
--- OUTSIDE RECORDS SUMMARY | 2024-06-25 12:52 | XMS_ITS ---
Care Plan - [facility] Created on: June 25, 2024 ANA BASS : 1945 Sex: Female Author Organization [facility] Address [address] [place] [address] Phone Care Team Providers Care Investigative Research Specialist Name Role Phone DOMENIC PERRY MD Primary Care Provider [phone]
== END 2024-06-25 12:44 | disposition home or self-care (01) ==
PROVIDERS: PCP Internal Medicine; Visit Provider Nurse Practitioner Family
DX: M79.602 Pain in left arm (principal)
CPT/HCPCS: 73030; 73060

== ENCOUNTER 2024-08-04 11:19 | Outpatient (CLI) | payer MEDICARE, SELFPAY ==
--- OUTSIDE RECORDS SUMMARY | 2024-08-04 11:46 | XMS_ITS | CONTINUITY OF CARE DOCUMENT ---
Author Name [facility] Address Unknown Organization [facility] Address [address] [place] [address] Phone [phone] Care Team Providers Care Wood Furniture Assembler Name Role Phone Jose SKY, Isidoro Unavailable DOMENIC PERRY MD Unavailable DOMENIC PERRY MD Unavailable [phone] INSURANCE PROVIDERS Payer name Policy type / Coverage type [place] red green party ID [email or web address] [id number] [place] [employer] Medicare [id number]
--- OUTSIDE RECORDS SUMMARY | 2024-08-04 11:46 | XMS_ITS | Referral Summary ---
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 [address] [place] [address] [employer] GENERIC Care Teams Sales Planning Coordinator Relationship Specialty Start Date End Date Darius Urbina MD PCP - General 02/27/12
--- OUTSIDE RECORDS SUMMARY | 2024-08-04 11:46 | XMS_ITS | Clinical Summary ---
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
--- OUTSIDE RECORDS SUMMARY | 2024-08-04 11:46 | XMS_ITS | Clinical Summary ---
Author Organization [facility] Address [address] [place] [address] Care Team Providers Care Organic Chemistry Teacher Name Role Phone Darius Urbina MD Primary Care Provider [phone] Carmen Beckman RN Unavailable Source Comments [facility],non-owned Affiliates and Associated Physician Practices is amultiple site organization consisting of ambulatory clinics and hospital sitesin [place], [place], [place] and [place]. This disclosure is being madepursuant to the Care Everywhere program and may not contain all information available regarding this patient. Last updated 17.[facility] Allergies No known active allergies Medications * Be aware that medications may not be up to date on this document. Alwaysverify current medications with the patient. 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 Gender Identity Not on file Sexual Orientation [...] Last Done Comments BONE DENSITY TESTING 1945 HEPATITIS C SCREENING 04/01/1964 DTAP/TDAP/TD VACCINES (1 - Tdap) 1965 PNEUMOCOCCAL VACCINE 50+ (1 of 1 - PCV) 1996 ZOSTER VACCINE (1 of 2) 1996 Respiratory Syncytial Virus (RSV) Vaccine Pt: or over 60 yrs (1 - 1-dose 75+ series) 2021 COVID-19 VACCINE (2023-2 5 season) 2023 DEPRESSION SCREENING 03/17/2024 INFLUENZA [...] on patient's age to complete this topic Insurance MEDICARE [facility] [employer] GENERIC Advance Directives * Full Code (Latest Code Status on File) Date Activated Date Inactivated Comments 11/22/2014 6:30 PM 11/24/2014 12:04 PM * Full Code Date Activated Date Inactivated Comments 08/09/2014 1:51 PM 08/10/2014 12:08 PM * Full Code Date Activated Date Inactivated Comments 03/28/2010 7:33 AM 03/30/2010 1:49 AM Care Teams Organic Chemistry Teacher Relationship Specialty Start Date End Date Darius Urbina MD [address] [place] [address] PCP - General Internal Medicine 03/27/12 Carmen Beckman, RN [employer] 11/23/14
--- OUTSIDE RECORDS SUMMARY | 2024-08-04 11:46 | XMS_ITS | Continuity of Care Document ---
Author Organization [facility] Address [address] [place] [address] Care Team Providers Care Community Health Nurse Name Role Phone Darius Urbina Primary Care Physician [phone] Encounter [facility] [id number] Date(s): 08/03/24 - 08/03/[address] [address]- Discharge Disposition: Home or Self Care Encounter Type: Between Visit Allergies, Adverse Reactions, Alerts Substance Criticality Severity Reaction Reaction Severity Status Adhesive Bandage Unable to assess criticality Unknown Active Assessment and Plan Future Scheduled Tests Radiology* IR Injection Nerves SI Joint Left 12/17/23 * IR Injection Nerves SI Joint Left 09/12/23 * IR Injection Sacroiliac Joint Left 06/23/24 * IR MBB Injection Lumb/Sacr Lv1 Bilat 08/03/24 Immunizations Given and Recorded Vaccine Date Status Refusal Reason SARS-CoV-2 mRNA (tozinameran) vaccine 02/13/21 Rec orded SARS-CoV-2 mRNA (tozinameran) vaccine 06/13/20 Rec orded SARS-CoV-2 mRNA (tozinameran) vaccine 05/23/20 Rec orded Medications alendronate 70 mg oral tablet = 1 tab, Weekly., 0 Refill(s) Start Date: 09/12/23 Status: Ordered Repeat number: 1 aspirin 81 mg oral delayed release tablet = 1 tab, Oral, Daily, # 90 tab, 0 Refill(s) Start Date: 09/12/23 Status: Ordered Quantity: 90.0 Unit: Repeat number: 1 Ativan 0.5 mg oral tablet = 1 tab, BID, 0 Refill(s) Start Date: 09/12/23 Status: Ordered Repeat number: 1 diclofenac 3% topical gel 1 kerry, Topical, BID, to R knee as needed, # 50 gm, 1 Refill(s), [facility]acy: [facility] Start Date: 05/13/24 Status: Ordered Quantity: 50.0 Unit: g Repeat number: 2 Indications: Pain in right knee; DULoxetine 60 mg oral delayed release capsule = 1 cap, Oral, every day at bedtime, # 90 cap, 0 Refill(s), [facility] Start Date: 08/03/24 Status: Ordered Quantity: 90.0 Unit: Repeat number: 1 Indications: Fibromyalgia; methocarbamol 500 mg oral tablet = 1 tab, Oral, TID, PRN NEEDED FOR SPASMS, # 90 tab, 0 Refill(s), [facility] Start Date: 08/03/24 Status: Ordered Quantity: 90.0 Unit: Repeat number: 1 Indications: Spondylosis without myelopathy or radiculopathy, lumbar region; montelukast 10 mg oral tablet = 1 tab, Daily, 0 Refill(s) Start Date: 09/12/23 Status: Ordered Repeat number: 1 Multi Vitamin+ 1, 0 Refill(s) Start Date: 09/12/23 Status: Ordered Repeat number: 1 nystatin 100,000 units/g topical cream 0 Refill(s) Start Date: 09/12/23 Status: Ordered Repeat number: 1 pravastatin 10 mg oral tablet = 1 tab, Oral, Daily, # 90 tab, 0 Refill(s) Start Date: 09/12/23 Status: Ordered Quantity: 90.0 Unit: Repeat number: 1 traMADol 50 mg oral tablet = 1 tab, Daily, 0 Refill(s) Start Date: 09/12/23 Status: Ordered Repeat number: 1 Tylenol Extra Strength 500 mg oral powder 1,000 mg, BID, 0 Refill(s) Start Date: 09/12/23 Status: Ordered Repeat number: 1 verapamil 240 mg/12 hours oral tablet, extended release = 1 tab, every morning, 0 Refill(s) Start Date: 09/12/23 Status: Ordered Repeat number: 1 Problem List Condition Confirmation Course Effective Dates Status Health St atus Informant Chronic kidney disease Confirmed Active Chronic pain syndrome Confirmed Active Fibromyalgia Confirmed Active Sacroiliitis Confirmed Active Lumbar spondylosis Confirmed Active Opioid contract exists 1 Confirmed 09/12/23 Active Spinal stenosis, lumbar region without neurogenic claudication Confirmed Active 1Added secondary to current Opioid Treatment Agreement Procedures Procedure Date Related Diagnosis Body Site Status Arthroplasty of right knee Completed Cholecystectomy (procedure) Completed Endoscopic laser surgery on colon Completed Entire tonsil Completed History of - surgery (contex t-dependent category) Completed Hysterectomy (procedure) Completed Insertion or replacement of peripheral, sacral, or gastric neurostimulator pulse generator or yard hostler, requiring pocket creation and connection between electrode array and pulse generator or yard hostler Completed Social History Social History Type Response Smoking Status Never (less than 100 in lifetime) entered on: 09/12/23 Sex Female Sex Representation Female (finding) Implantable Device List Procedure Provider Procedure Date Device Type Site Unknown Unknown 01/22/24 Unknown Unknown Device Identifier Serial Number Lot or Batch Number Manufacturing Date Expiration Date Distinct Identification Code MRI Safety Implantable Status Assigning Authority Unknown Unknown Unknown Unknown Unknown Unknown MR Condrussell onal Active Unknown Patient Care team information Care Team Personnel Name: Darius Urbina Position: No Access Member Role: Primary Care Physician Address: [address] [place] [address] Telecom: Care Team Related Persons Name: RADHA COWART Insurance Providers Guarantor name: ANA BASS [employer] Plan Information #: 1 Payer: Medicare Member Number: NA Policy Number: NA Group Number: NA Payer Identifier: NA Health Plan Information #: 2 Payer: [facility] Member Number: NA Policy Number: NA Group Number: NA Payer Identifier: NA
[2024-08-04 12:00] LABS: Hematocrit 43.5 % (35.0-42.0); Hemoglobin 13.7 g/dL (11.7-13.8); Mean Corpuscular HGB Conc 31.5 g/dL (32-36); Mean Corpuscular Hemoglobin 31.4 pg (27.0-31.0); Mean Corpuscular Volume 99.8 fL (78.0-102.0); Mean Platelet Volume 9.8 fl (9.2-11.8); Platelet Count Result 240 K/mm3 (150-420); Red Blood Count 4.36 M/mm3 (4.20-5.40); Red Cell Distribution Width 12.8 % (11.6-14.4); White Blood Count 6.6 K/mm3 (4.8-10.8)
[2024-08-04 12:10] LABS: Add Urine Microscopic? YES; Appearance Urine Sl Cloudy (Clear); Bilirubin Urine Negative (Negative); Blood Urine Negative (Negative); Color Urine Orange (Yellow); Glucose Urine UA Negative (Negative); Ketones Urine Trace (Negative); Leukocyte Esterase Ur 1+ (Negative); Nitrate Urine Negative (Negative); Protein Urine Trace (Negative); Specific Grav Ur 1.025 (1.010-1.020); pH Urine 5.5 (5.0-8.0)
[2024-08-04 12:17] LABS: RBC Urine None seen /hpf (0-2); Squamous Epithelial Cell Urine Few /hpf (Few)
[2024-08-04 12:18] LABS: Bacteria Urine 1+ /hpf
[2024-08-04 12:41] LABS: Alanine Aminotransferase 12 U/L (6-35); Albumin Level 4.3 g/dL (3.5-5.1); Alkaline Phosphatase 73 U/L (38-126); Anion Gap 3 mmol/L (4-12); Aspartate Amino Transferase 42 U/L (14-36); Bilirubin,Total 0.8 mg/dL (0.2-1.3); Blood Urea Nitrogen 22 mg/dL (7-17); CRP < 0.5 mg/dL (<1.0); Calcium 9.2 mg/dL (8.4-10.2); Carbon Dioxide 31 mmol/L (22-30); Chloride 106 mmol/L (98-107); Cholesterol 202 mg/dL (0-200); Estimated Glomerular Filt Rate 60; Glucose 78 mg/dL (65-110); HDL Direct 97 mg/dL; LDL Cholesterol Calculated 95 mg/dL (<130); Osmolality Calculated 292 mOsm/kg (285-295); Potassium 4.9 mmol/L (3.4-5.0); Sodium 140 mmol/L (137-145); Total Protein 7.1 g/dL (6.3-8.2); Triglycerides 52 mg/dL (<150)
[2024-08-04 13:09] LABS: Thyroid Stimulating Hormone < 0.015 uIU/mL (0.465-4.680)
[2024-08-04 18:00] LABS: Free T4 Free Thyroxine 1.16 ng/dL (0.78-2.19)
[2024-08-04 18:30] LABS: Free T3 3.12 pg/mL (2.18-3.98)
== END 2024-08-04 11:20 | disposition home or self-care (01) ==
LOC: CHSLAB 11:21
PROVIDERS: PCP Internal Medicine; Visit Provider Internal Medicine
DX: E03.9 Hypothyroidism, unspecified (principal); I10 Essential (primary) hypertension; E78.5 Hyperlipidemia, unspecified
CPT/HCPCS: 36415; 80053; 80061; 81001; 84439; 84443; 84481; 85027; 86140

== ENCOUNTER 2024-08-11 13:05 | Outpatient (CLI) | payer MEDICARE, SELFPAY ==
--- NOTE | ~2024-08-11 | US_ITS ---
EXAMINATION: US thyroid DATE: 08/11/2024 13:32 INDICATION: Compensated hyperthyroidism TECHNIQUE: Multiple ultrasound images of the thyroid were obtained. COMPARISON: None. FINDINGS: The right thyroid lobe measures 4.1 x 1.4 x 2.0 cm. Within the right lobe of the thyroid gland is a 5.4 x 5.2 x 5.9 mm nodule: Composition -mixed cystic and solid (1) Echogenicity -hyperechoic or isoechoic (1) Shape - wider than tall Margin - smooth Echogenic foci - none. = TR2 not suspicious. The left thyroid lobe measures 3.9 x 1.5 x 1.7 cm. Within the left lobe of the thyroid gland is a 6.2 x 2.6 x 5.4 mm nodule: Composition -spongiform Echogenicity -hypoechoic (2) Shape - wider than tall Margin - smooth Echogenic foci - none. = TR2 not suspicious. The isthmus measures 0.3cm in anterior to posterior dimension. There is otherwise normal echotexture and echogenicity throughout the remainder of the thyroid gland. No additional discrete nodules identified. Normal vascular flow is present. IMPRESSION: TR2 nodules detected bilaterally. These nodules are not sonographically suspicious and no FNA is recommended Follow-up may be performed at the discretion of the referring clinician. Reviewed, dictated and finalized at location A.
--- OUTSIDE RECORDS SUMMARY | 2024-08-11 13:12 | XMS_ITS | Referral Summary ---
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 Gender Identity Not on file Sexual Orientation Not on file Last Filed Vital Signs Vital Sign Reading Time Taken Comments Blood Pressure 165/114 08/26/2017 10:15 AM CDT Pulse 97 08/26/2017 10:15 AM CDT Temperature - - Respiratory Rate - - Oxygen Saturation - - Inhaled Oxygen Concentration - - Weight 97.5 kg (215 lb) 08/26/2017 10:15 AM CDT Height 160 cm (5' 3) 08/26/2017 10:15 AM CDT Body Mass Index 38.09 08/26/2017 10:15 AM CDT Plan of Treatment Not on file Insurance MEDICARE [employer] GENERIC Care Teams Desk Director Relationship Specialty Start Date End Date Darius Urbina MD PCP - General 02/27/12
--- OUTSIDE RECORDS SUMMARY | 2024-08-11 13:12 | XMS_ITS | CONTINUITY OF CARE DOCUMENT ---
Author Name [facility] Address Unknown Organization [facility] Address [address] [place] [address] Phone [phone] Care Team Providers Care Environmental Compliance Officer Name Role Phone Jose SKY, Isidoro Unavailable DOMENIC PERRY MD Unavailable DOMENIC PERRY MD Unavailable INSURANCE PROVIDERS Payer name Policy type / Coverage type [place] red libertarian ID [employer] [address] insurance Saisei [id number] [place] MEDICARE Medicare [id number]
--- OUTSIDE RECORDS SUMMARY | 2024-08-11 13:12 | XMS_ITS | Clinical Summary ---
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 [address] [place] [address] [employer] GENERIC Care Teams Motion Study Engineer Relationship Specialty Start Date End Date Darius Urbina MD PCP - General 02/27/12
--- OUTSIDE RECORDS SUMMARY | 2024-08-11 13:12 | XMS_ITS | Clinical Summary ---
Author Organization [facility] Address [address] [place] [address] Care Team Providers Care Retail Pharmacy Manager Name Role Phone Darius Urbina MD Primary Care Provider [phone] Carmen Beckman RN Unavailable Source Comments [facility],non-owned Affiliates and Associated Physician Practices is amultiple site organization consisting of ambulatory clinics and hospital sitesin [place], [place], [place] and [place]. This disclosure is being madepursuant to the Care Everywhere program and may not contain all information available regarding this patient. 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 Gender Identity Not on file Sexual Orientation [...] 8:16 AM CDT Height 165.1 cm (5' 5) 12/15/2017 8:16 AM CDT Body Mass Index [...] age to complete this topic Insurance MEDICARE [facility] FINANCIAL COMMERCIAL GENERIC Advance Directives * Full Code (Latest Code Status on File) Date Activated Date Inactivated Comments 11/22/2014 6:30 PM 11/24/2014 12:04 PM * Full Code Date Activated Date Inactivated Comments 08/09/2014 1:51 PM 08/10/2014 12:08 PM * Full Code Date Activated Date Inactivated Comments 03/28/2010 7:33 AM 03/30/2010 1:49 AM Care Teams Retail Pharmacy Manager Relationship Specialty Start Date End Date Darius Urbina MD [address] [place] [address] PCP - General Internal Medicine 03/27/12 Carmen Beckman, RN Receiving Associate Store 11/23/14
== END 2024-08-11 13:06 | disposition home or self-care (01) ==
LOC: CHSIMG 13:08
PROVIDERS: PCP Internal Medicine; Visit Provider Internal Medicine
DX: E05.80 Other thyrotoxicosis without thyrotoxic crisis or storm (principal)
CPT/HCPCS: 76536

== ENCOUNTER 2024-08-24 09:24 | Outpatient (CLI) | payer MEDICARE, SELFPAY ==
--- NOTE | 2024-08-24 10:00 | ECG_ITS ---
Test Date: 2024-08-24 10:10:56 Measurements Intervals [place] Rate: 72 P: 64 UT: 149 QRS: 51 QRSD: 82 T: 49 QT: 371 QTc: 408 Interpretive Statements SINUS RHYTHM WITH SINUS ARRHYTHMIA BASELINE ARTIFACT- I, II, III, AVR, AVL, AVF NORMAL ECG No previous ECG available for comparison Electronically Signed On 08-24-2024 10:20:45 CDT by Sammy Allred D.O.
--- OUTSIDE RECORDS SUMMARY | 2024-08-24 10:03 | XMS_ITS | Clinical Summary ---
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
--- OUTSIDE RECORDS SUMMARY | 2024-08-24 10:03 | XMS_ITS | Referral Summary ---
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
--- OUTSIDE RECORDS SUMMARY | 2024-08-24 10:03 | XMS_ITS | Clinical Summary ---
Author Organization [facility] Address [address] [place] [address] Care Team Providers Care Washer And Crusher Tender Name Role Phone Darius Urbina MD Primary Care Provider [phone] Carmen Beckman RN Unavailable [phone] Source Comments [facility],non-owned Affiliates and Associated Physician Practices is amultiple site organization consisting of ambulatory clinics and hospital sitesin [place], [place], [place] and [place]. This disclosure is being madepursuant to the Care Everywhere program and may not contain all information available regarding this patient. 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 Gender Identity Not on file Sexual [...] age to complete this topic Insurance MEDICARE [facility] FINANCIAL COMMERCIAL GENERIC Advance Directives * Full Code (Latest Code Status on File) Date Activated Date Inactivated Comments 11/22/2014 6:30 PM 11/24/2014 12:04 PM * Full Code Date Activated Date Inactivated Comments 08/09/2014 1:51 PM 08/10/2014 12:08 PM * Full Code Date Activated Date Inactivated Comments 03/28/2010 7:33 AM 03/30/2010 1:49 AM Care Teams Washer And Crusher Tender Relationship Specialty Start Date End Date Darius Urbina MD [address] [place] [address] PCP - General Internal Medicine 03/27/12 Carmen Beckman, RN Manager Sales And Marketing 11/23/14
--- OUTSIDE RECORDS SUMMARY | 2024-08-24 10:03 | XMS_ITS | CONTINUITY OF CARE DOCUMENT ---
Author Name [facility] Address Unknown Organization [facility] Address [address] [place] [address] Phone [phone] Care Team Providers Care Magistrate Assistant Name Role Phone Jose SKY, Isidoro Unavailable DOMENIC PERRY MD Unavailable [phone] DOMENIC PERRY MD Unavailable INSURANCE PROVIDERS Payer name Policy type / Coverage type [place] red green party ID [employer] [place] insurance [id number] [place] MEDICARE Medicare [id number]
[2024-08-24 10:23] LABS: Add Urine Microscopic? YES; Ammonia < 9 umol/L (9-30); Appearance Urine Clear (Clear); Basophils Absolute Auto 0.03 K/mm3 (0.00-0.10); Basophils Percent Auto 0.6 % (0.0-1.0); Bilirubin Urine 1+ (Negative); Blood Urine Negative (Negative); Color Urine Dark Yellow (Yellow); Eosinophils Absolute Auto 0.08 K/mm3 (0.02-0.50); Eosinophils Percent Auto 1.7 % (1.0-6.0); Glucose Urine UA Negative (Negative); Hematocrit 41.6 % (35.0-42.0); Immature Granulocyte Absolute 0.01 K/mm3 (0.00-0.00); Immature Granulocyte Percent A 0.2 % (0.0-0.0); Ketones Urine 1+ (Negative); Leukocyte Esterase Ur Negative (Negative); Lymphocytes Absolute Auto 1.81 K/mm3 (1.10-4.50); Lymphocytes Percent Auto 37.4 % (18.0-42.0); Mean Corpuscular HGB Conc 31.3 g/dL (32-36); Mean Corpuscular Hemoglobin 31.7 pg (27.0-31.0); Mean Corpuscular Volume 101.5 fL (78.0-102.0); Mean Platelet Volume 9.2 fl (9.2-11.8); Monocytes Absolute Auto 0.41 K/mm3 (0.10-0.90); Monocytes Percent Auto 8.5 % (2.0-11.0); Neutrophils Percent Auto 51.6 % (50.0-70.0); Nitrate Urine Negative (Negative); Platelet Count Result 258 K/mm3 (150-420); Protein Urine Trace (Negative); Specific Grav Ur >= 1.030 (1.010-1.020); White Blood Count 4.8 K/mm3 (4.8-10.8); pH Urine 5.5 (5.0-8.0)
[2024-08-24 10:32] LABS: RBC Urine None seen /hpf (0-2); WBC Urine 0-3 /hpf (0-3)
[2024-08-24 10:33] LABS: Bacteria Urine 1+ /hpf; Mucus Urine Moderate /lpf; Squamous Epithelial Cell Urine Moderate /hpf (Few)
[2024-08-24 10:45] LABS: GGT 18.6 U/L (12-43)
[2024-08-24 10:56] LABS: Anion Gap 4 mmol/L (4-12); Blood Urea Nitrogen 20 mg/dL (7-17); Carbon Dioxide 30 mmol/L (22-30); Chloride 107 mmol/L (98-107); Free T3 2.94 pg/mL (2.18-3.98); Potassium 4.4 mmol/L (3.4-5.0); Sodium 141 mmol/L (137-145)
[2024-08-24 10:57] LABS: Alanine Aminotransferase 14 U/L (6-35); Albumin Level 4.1 g/dL (3.5-5.1); Alkaline Phosphatase 60 U/L (38-126); Aspartate Amino Transferase 42 U/L (14-36); Bilirubin,Total 0.6 mg/dL (0.2-1.3); Calcium 8.9 mg/dL (8.4-10.2); Estimated Glomerular Filt Rate > 60; Glucose 88 mg/dL (65-110); Osmolality Calculated 293 mOsm/kg (285-295); Total Protein 6.9 g/dL (6.3-8.2)
[2024-08-24 10:58] LABS: Thyroid Stimulating Hormone < 0.015 uIU/mL (0.465-4.680)
[2024-08-24 11:36] LABS: Free T4 Free Thyroxine 0.93 ng/dL (0.78-2.19)
[2024-08-26 09:53] LABS: Thyroid Peroxidase Antibodies 1 IU/mL (<9)
[2024-08-28 15:58] LABS: PEth 16:0/18:1 (PLPEth) NEGATIVE ng/mL (<20); PEth 16:0/18:2 (PLPEth) NEGATIVE ng/mL (<20)
[2024-08-31 18:14] LABS: Thyroid Stimulating Immunoglob <89 % baseline (<140)
== END 2024-08-24 09:25 | disposition home or self-care (01) ==
LOC: CHSLAB 09:27
PROVIDERS: PCP Internal Medicine; Visit Provider Internal Medicine
DX: E05.90 Thyrotoxicosis, unspecified without thyrotoxic crisis or storm (principal); R53.83 Other fatigue; R94.5 Abnormal results of liver function studies; R74.01 Elevation of levels of liver transaminase levels; Z79.899 Other long term (current) drug therapy
CPT/HCPCS: 36415; 80053; 80321; 81001; 82140; 82977; 84439; 84443; 84445; 84480; 84481; 85025; 86376; 87086; 93005; G0480

== ENCOUNTER 2024-09-10 08:55 | Outpatient (CLI) | payer MEDICARE, SELFPAY ==
[2024-09-10 09:43] LABS: Free T4 Free Thyroxine 0.86 ng/dL (0.78-2.19)
[2024-09-10 13:38] LABS: Free T3 3.49 pg/mL (2.18-3.98)
== END 2024-09-10 08:56 | disposition home or self-care (01) ==
LOC: CHSLAB 08:57
PROVIDERS: PCP Internal Medicine
DX: E04.2 Nontoxic multinodular goiter (principal)
CPT/HCPCS: 36415; 84439; 84481

== ENCOUNTER 2024-12-30 13:49 | Outpatient (CLI) | payer MEDICARE, SELFPAY ==
--- NOTE | ~2024-12-30 | XR_ITS ---
[id number] Indication: LT SHOULDER PAIN, ARM PAIN Comparison: None Findings: Mild osteopenia, no acute fracture or subluxation Moderate loss of disc height throughout. Soft tissues unremarkable Impression: No acute abnormality. Reviewed, dictated and finalized at location P. Impression: No acute abnormality.
--- NOTE | ~2024-12-30 | XR_ITS ---
EXAMINATION: XR shoulder LT min 2V, 12/30/2024 14:00 CDT HISTORY: LT SHOULDER PAIN, ARM PAIN COMPARISON: No comparisons available. Findings: No acute fracture or malalignment. Severe degenerative changes Soft tissues unremarkable. Impression: No acute fracture or malalignment. Reviewed, dictated and finalized at location P. Impression: No acute fracture or malalignment.
--- OUTSIDE RECORDS SUMMARY | 2024-12-30 15:50 | XMS_ITS | Clinical Summary ---
Author Organization [facility] Address [address] [place] [address] Care Team Providers Care Dialysis Registered Nurse Name Role Phone Darius Urbina MD Primary [...] on file Legal Sex Female 9:06 PM NURSE SPECIAL Gender Identity Not on file Sexual Orientation Not on file Last Filed Vital Signs Vital Sign Reading Time Taken Comments Blood Pressure 175/103 01/22/2024 1:05 PM NURSE SPECIAL Pulse 69 01/22/2024 1:05 PM NURSE SPECIAL Temperature 36.4 C (97.6 F) 01/22/2024 1:05 PM NURSE SPECIAL Respiratory Rate 18 01/22/2024 1:05 PM NURSE SPECIAL Oxygen Saturation 99% 01/22/2024 1:05 PM NURSE SPECIAL Inhaled Oxygen Concentration - - Weight 88.4 kg (194 lb 14.2 oz) 024 11:06 AM NURSE SPECIAL Height 165.1 cm (5' 5) 01/14/2024 10:4 0 AM CDT Body Mass Index 32.43 01/14/2024 10:40 AM CDT Plan of Treatment Health Maintenance Due Date Last Done Comments Hepatitis C 1963 DTaP, Tdap and Td Vaccines ( 1 - Tdap) 1965 Pneumococcal Vaccine: 50+ Years (1 of 1 - PCV) 1996 Zoster Vaccines (1 of 2) 1996 Annual Medicare Wellness Visit 2011 Dexa Scan (General) 2011 RSV Immunization or 60+ Years (1 - 1-dose 75+ series) 2021 COVID-19 Vaccine (4 - 2024-2 6 season) 2024 02/13/2021, 06/13/2020, 05/23/2020 Influenza Adult (#1) 2024 Meningococcal B Vaccine Aged Out No l onger eligible based on patient's age to complete this topic Meningococcal Vaccine Aged Out No enrico irasema eligible based on patient's age to complete this topic RSV Immunizations Under 20 Months Aged Out No longer eligible b ased on patient's age to complete this topic Medical Devices Implanted Type Area Ginning Operator Device Identifier Shelf Expiration Date Model / Serial / Lot Interstim X Implanted:Qt y: 1 on 01/22/2024 by Wilmer Jaramillo MD at [facility] Stimulator Implant N/A: Buttocks [employer] 04/30/2025 [id number] / [id number] / Implant Lead Implanted:Qt y: 1 on 01/22/2024 by Wilmer Jaramillo MD at [facility] Stimulator Implant N/A: Sacrum [employer] 09/07/2025 [id number] / / [id number] Insurance MEDICARE [facility] Advance Directives * Full Code (Latest Code Status on File) Date Activated Date Inactivated Comments 01/22/2024 12:40 PM 01/22/2024 3:39 PM Care Teams Dialysis Registered Nurse Relationship Specialty Start Date End Date Darius Urbina MD [address] [place] [address] PCP - General INTERNAL MEDICINE 01/14/24
--- OUTSIDE RECORDS SUMMARY | 2024-12-30 15:50 | XMS_ITS | Clinical Summary ---
Author Organization [facility] [employer] Address [address] [place] [address] Care Team Providers Care Vending Machine Coin Collector Name Role Phone Darius Urbina MD Primary Care Provider [phone] Carmen Beckman RN Unavailable [phone] Source Comments [facility] [employer]non-owned Affiliates and Associated Physician Practices is amultiple site organization consisting of ambulatory clinics and hospital sitesin [place], [place], [place] and [place]. This disclosure is being madepursuant to the Care Everywhere program and may not contain all information available regarding this patient. Last updated 17.[facility] [employer] 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 Gender Identity Not on file Sexual Orientation [...] yrs (1 - 1-dose 75+ series) 2021 DEPRESSION SCREENING 03/17/2024 COVID-19 VACCINE (2023-2 5 season) 2024 INFLUENZA VACCINE (#1) 2024 HEPATITIS B VACCINE Aged Out No [...] age to complete this topic Insurance MEDICARE [facility] FINANCIAL COMMERCIAL GENERIC Advance Directives * Full Code (Latest Code Status on File) Date Activated Date Inactivated Comments 11/22/2014 6:30 PM 11/24/2014 12:04 PM * Full Code Date Activated Date Inactivated Comments 08/09/2014 1:51 PM 08/10/2014 12:08 PM * Full Code Date Activated Date Inactivated Comments 03/28/2010 7:33 AM 03/30/2010 1:49 AM Care Teams Vending Machine Coin Collector Relationship Specialty Start Date End Date Darius Urbina MD [address] [place] [address] PCP - General Internal Medicine 03/27/12 Carmen Beckman, RN Dice Manager 11/23/14
--- OUTSIDE RECORDS SUMMARY | 2024-12-30 15:50 | XMS_ITS | Encounter Summary ---
Author Organization [facility] Address [address] [place] [address] Care Team Providers Care Private Client Advisor Name Role Phone Darius Urbina MD Primary Care Provider [phone] Encounter Details Date Type Department Care Team (Late st Contact Info) Description 01/17/[address] [address] [place], [place] [id number] Kirit Grace MD [address] [facility] 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
--- OUTSIDE RECORDS SUMMARY | 2024-12-30 15:50 | XMS_ITS | Clinical Summary ---
Author Organization [employer] Address [address] [place] [address] Care Team Providers Care Transit Department Clerk Name Role Phone Unavailable Primary Care Provider Unavailabl e Source Comments This disclosure is being made pursuant to the [employer] program and maynot contain all information available regarding this patient.[employer] Social History Tobacco Use Types Packs/Day Years Used Date Smoking Tobacco: Never Assessed Comments Unknown Sex and Gender Information Value Date Recorded Sex Assigned at Not on file Legal Sex Female 6:39 PM CDT Gender Identity Not on file Sexual Orientation Not on file Plan of Treatment Health Maintenance Due Date Last Done Comments Lab-Hepatitis C Screening 1945 Osteoporosis Screening-Bone Density 1945 Annual Wellness Visit 1964 Tetanus/Pertussis Vaccine Teen/Adult (1 - Tdap) 1965 Pneumococcal Vaccines 50+ (1 of 1 - PCV) 1996 Zoster (Shingles) Vaccine 50 + (1 of 2) 1996 RSV Adult (1 - 1-dose 75+ series) 2021 COVID-19 Vaccine ( - 2023-2 5 season) 2024 Influenza Vaccine (#1) 2024 HIB Vaccine Aged Out No longer eligi ble based on patient's age to complete this topic HPV Vaccine (9-26yo & Shared Decision 27-45yo) Aged Out No longer eligible b ased on patient's age to complete this topic Hepatitis A Vaccine Aged Out No longe r eligible based on patient's age to complete this topic IPV Vaccine Aged Out No longer eligi ble based on patient's age to complete this topic Meningococcal Conjugate Vaccine Aged Out No longer eligible based on patient's age to complete this topic RSV < 20 Months Aged Out No longer el igible based on patient's age to complete this topic
--- OUTSIDE RECORDS SUMMARY | 2024-12-30 15:50 | XMS_ITS | Clinical Summary ---
Author Organization [facility] Address [address] [place] [address] Care Team Providers Care Grommet Machine Operator Name Role Phone Darius Urbina MD Primary Care Provider [phone] Allergies Active Allergy Reactions Criticality Noted Date Comments Adhesive Tape-Silicones Prochlorperazine Rash Medium Medications celecoxib (CeleBREX) 200 mg capsule take 1 capsule (200MG) by ORAL route every day as needed 30 6 2 Active Additional Information Patient not taking.Reported on 09/01/2024 atenolol (TENORMIN) 25 mg tablet 8 Active biotin 5 mg capsule Take 1 capsule by mouth. Active ibuprofen (ibuprofen) 200 mg tab/cap Take by mouth every 6 hours. Active LORazepam (ATIVAN) 1 mg tablet Take 1 mg by mouth. Active meloxicam (MOBIC) 15 mg tablet 8 Active mirtazapine (REMERON) 30 mg tablet 8 Active montelukast (SINGULAIR) 10 mg tablet Take 10 mg by mouth. Active raNITIdine (ZANTAC) 300 mg tablet 8 Active traMADol (ULTRAM) 50 mg tablet Take 50 mg by mouth 2 times daily. 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 Gender Identity Not on file Sexual Orientation Not on file Obstetrics History Last Filed Vital Signs Vital Sign Reading Time Taken Comments Blood Pressure 124/76 09/01/2024 11:23 AM CDT Pulse 74 09/01/2024 11:23 AM CDT Temperature - - Respiratory Rate - - Oxygen Saturation - - Inhaled Oxygen Concentration - - Weight 90.4 kg (199 lb 4.8 oz) 09/01/2024 11:23 AM CDT Height 160 cm (5' 3) 09/01/2024 11:23 AM CDT Body Mass Index 35.3 09/01/2024 11:23 AM CDT Plan of Treatment Health Maintenance Due Date Last Done Comments Depression Screening 1945 Fall Risk Assessment 1945 Hepatitis C Screening 1945 Osteoporosis Screening-Bone Density Scan 1945 DTaP/Tdap/Td Vaccine (1 - Tdap) 1957 Hepatitis B Screening 1964 Pneumococcal vaccine 65+ (1 of 1 - PCV) 1996 Zoster Vaccine (1 of 2) 1996 Well Visit 65+ 2011 Covid-19 Vaccine ( season) 2024 02/13/2021, 06/13/2020, 05/23/2020 Influenza Vaccine (#1) 2024 Insurance MEDICARE MEDICARE Care Teams Grommet Machine Operator Relationship Specialty Start Date End Date Darius Urbina MD PCP - General 02/27/12
== END 2024-12-30 13:50 | disposition home or self-care (01) ==
LOC: CHSIMG 13:51
PROVIDERS: PCP Internal Medicine; Visit Provider Internal Medicine
DX: M25.512 Pain in left shoulder (principal)
CPT/HCPCS: 72040; 73030

== ENCOUNTER 2025-03-02 11:05 | Outpatient (CLI) | payer MEDICARE, SELFPAY ==
[2025-03-02 11:24] LABS: Hematocrit 41.5 % (35.0-42.0); Hemoglobin 13.1 g/dL (11.7-13.8); Mean Corpuscular HGB Conc 31.6 g/dL (32-36); Mean Corpuscular Hemoglobin 32.1 pg (27.0-31.0); Mean Corpuscular Volume 101.7 fL (78.0-102.0); Platelet Count Result 254 K/mm3 (150-420); Red Blood Count 4.08 M/mm3 (4.20-5.40); White Blood Count 5.9 K/mm3 (4.8-10.8)
[2025-03-02 11:25] LABS: Glucose Urine UA Negative (Negative); Leukocyte Esterase Ur Trace (Negative); Nitrate Urine Negative (Negative); Specific Grav Ur >= 1.030 (1.010-1.020)
[2025-03-02 11:34] LABS: Add Urine Microscopic? YES; Appearance Urine Sl Cloudy (Clear)
[2025-03-02 11:46] LABS: Alanine Aminotransferase 10 U/L (6-35); Albumin Level 4.4 g/dL (3.5-5.1); Alkaline Phosphatase 72 U/L (38-126); Anion Gap 10 mmol/L (4-12); Aspartate Amino Transferase 35 U/L (14-36); Bilirubin,Total 0.6 mg/dL (0.2-1.3); Blood Urea Nitrogen 19 mg/dL (7-17); CRP < 0.5 mg/dL (<1.0); Calcium 9.6 mg/dL (8.4-10.2); Carbon Dioxide 27 mmol/L (22-30); Chloride 107 mmol/L (98-107); Cholesterol 181 mg/dL (0-200); Estimated Glomerular Filt Rate > 60; Glucose 98 mg/dL (65-110); HDL Direct 91 mg/dL; Osmolality Calculated 300 mOsm/kg (285-295); Potassium 4.1 mmol/L (3.4-5.0); Sodium 144 mmol/L (137-145); Total Protein 6.9 g/dL (6.3-8.2); Triglycerides 85 mg/dL (<150); Uric Acid 3.9 mg/dL (2.5-7.5)
[2025-03-02 12:14] LABS: Thyroid Stimulating Hormone 0.873 uIU/mL (0.465-4.680)
--- OUTSIDE RECORDS SUMMARY | 2025-03-02 13:29 | XMS_ITS | Clinical Summary ---
Author Organization [facility] Building [facility] Address [address] [place] [address] Care Team Providers Care Side Laster Tack Name Role Phone Darius Urbina MD Primary Care Provider [phone] Allergies Active Allergy Reactions Criticality Noted Date Comments Adhesive Tape-Silicones Prochlorperazine Rash Medium Medications atenolol (TENORMIN) 25 mg tablet 08/07/2017 Active LORazepam (ATIVAN) 1 mg tablet Take 1 mg by mouth. Active mirtazapine (REMERON) 30 mg tablet 07/30/2017 Active montelukast (SINGULAIR) 10 mg tablet Take 10 mg by mouth. Active traMADol (ULTRAM) 50 mg tablet Take [...] capsule (60 mg total) by mouth daily 08/24/2024 Active verapamil SR (CALAN SR) 240 mg CR tablet Take 1 tablet (240 mg total) by mouth nightly 08/24/2024 Active Active Problems Problem Noted Date Diagnosed Date Hypertension 11/23/2014 Morbid obesity 10/14/2014 Complication of gastric banding 06/23/2014 Gastric prolapse 06/23/2014 Encounters Date Type Department Care Team Description 01/19/2025 Results Follow-Up [facility] Diabetes Endocrine Care at [address] [place] [address] [place] [address] Cruz Mahan DO Thyroid Function [place] 01/18/2025 1:00 PM POWER SWEEPER OPERATOR Lab [facility] Outpatient [facility] - Outpatient Center at [address] [address] Low TSH level 01/18/2025 12:30 PM POWER SWEEPER OPERATOR Office Visit [facility] Diabetes Endocrine Care at [address] [place] [address] Cruz Mahan DO Low TSH level (Primary Dx); Multinodular goiter from Last 3 Months Surgical History Surgery Date Site/Laterality Comments HERNIA [...] on file Legal Sex Female 11:01 AM POWER SWEEPER OPERATOR Gender Identity Not on file Sexual Orientation Not on file Last Filed Vital Signs Vital Sign Reading Time Taken Comments Blood Pressure 126/74 01/18/2025 12:30 PM POWER SWEEPER OPERATOR Pulse 84 01/18/2025 12:30 PM POWER SWEEPER OPERATOR Temperature - - Respiratory Rate - - Oxygen Saturation - - Inhaled Oxygen Concentration - - Weight 89.9 kg (198 lb 4.8 oz) 01/18/2025 12:30 PM POWER SWEEPER OPERATOR Height 160 cm (5' 3) 01/18/2025 12:30 PM POWER SWEEPER OPERATOR Body Mass Index 35.13 01/18/2025 12:30 PM POWER SWEEPER OPERATOR Plan of Treatment Health Maintenance Due Date Last Done Comments Depression Screening 1946 Fall Risk Assessment 1945 Hepatitis C Screening 1945 Osteoporosis Screening-Bone Density Scan 1946 DTaP/Tdap/Td Vaccine (1 - Tdap) 1957 Hepatitis B Screening 1964 Pneumococcal vaccine 65+ (1 of 1 - PCV) 1996 Zoster Vaccine (1 of 2) 1996 Well Visit 65+ 2011 Covid-19 Vaccine ( - season) 2024 02/13/2021, 06/13/2020, 05/23/2020 Influenza Vaccine (#1) 2024 Procedures Procedure Name Priority Date/Time Associated Diagnosis Comments THYROID FUNCTION CASCADE Routine 01/18/2025 1:05 PM POWER SWEEPER OPERATOR Low TSH level from Last 3 Months Results * Thyroid Function Tom Green (01/18/2025 1:05 PM POWER SWEEPER OPERATOR) TSH 0.93 0.30 - 4.20 mcIUnit/mL Comment:Testing performed by : [facility], [address] [place] [address]., [id number] Blood 01/18/2025 1:0 5 PM POWER SWEEPER OPERATOR 01/18/2025 5:31 PM POWER SWEEPER OPERATOR us Cruz Mahan DO LAB BLOOD ORDERABLES Final Result [id number] [facility] [place] [address] from Last 3 Months Insurance MEDICARE MEDICARE [facility] Care Teams Side Laster Tack Relationship Specialty Start Date End Date Darius Urbina MD PCP - General 02/27/12
--- OUTSIDE RECORDS SUMMARY | 2025-03-02 13:29 | XMS_ITS | Clinical Summary ---
Author Organization [employer] Address [address] [place] [address] Care Team Providers Care Marine Propulsion Technician Name Role Phone Unavailable Primary Care Provider Unavailabl e Source Comments This disclosure is being made pursuant to the [employer] program and maynot contain all information available regarding this patient.[employer] Social History Tobacco Use Types Packs/Day Years [...] 75+ series) 2021 COVID-19 Vaccine ( - 2024-2 6 season) 2024 Influenza Vaccine (#1) 2024 HIB [...]
--- OUTSIDE RECORDS SUMMARY | 2025-03-02 13:29 | XMS_ITS | Clinical Summary ---
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 Gender Identity Not on file Sexual Orientation Not on file Last Filed Vital Signs Vital Sign Reading Time Taken Comments Blood Pressure 175/103 01/22/2024 1:05 PM CASINO SUPERVISOR Pulse 69 01/22/2024 1:05 PM CASINO SUPERVISOR Temperature 36.4 C (97.6 F) 01/22/2024 1:05 PM CASINO SUPERVISOR Respiratory Rate 18 01/22/2024 1:05 PM CASINO SUPERVISOR Oxygen Saturation 99% 01/22/2024 1:05 PM CASINO SUPERVISOR Inhaled Oxygen Concentration - - Weight 88.4 kg (194 lb 14.2 oz) 024 11:06 AM CASINO SUPERVISOR Height 165.1 cm (5' 5) 01/14/2024 10:4 [...] 02/13/2021, 06/13/2020, 05/23/2020 Influenza Adult (#1) 2024 Hepatitis A Vaccines Aged Out No long er eligible based on patient's age to complete this topic Meningococcal B Vaccine Aged Out No l onger eligible based on patient's age to complete this topic Meningococcal Vaccine Aged Out No enrico irasema eligible based on patient's age to complete this topic RSV Immunizations Under 20 Months Aged Out No longer eligible b ased on patient's age to complete this topic Medical Devices Implanted Type Area Labor Relations Manager Device Identifier Shelf Expiration Date Model / Serial / Lot Interstim X Implanted:Qt y: 1 on 01/22/2024 by Wilmer Jaramillo MD at [facility] Stimulator Implant N/A: Buttocks [employer] 04/30/2025 [id number] / [id number] H / Implant Lead Implanted:Qt y: 1 on 01/22/2024 by Wilmer Jaramillo MD at [facility] Stimulator Implant N/A: Sacrum [employer] 09/07/2025 [id number] / / [id number] Insurance MEDICARE [facility] Advance Directives * Full Code (Latest Code Status on File) Date Activated Date Inactivated Comments 01/22/2024 12:40 PM 01/22/2024 3:39 PM Care Teams Cable Television Line Technician Relationship Specialty Start Date End Date Darius Urbina MD [address] [place] [id number] PCP - General INTERNAL MEDICINE 01/14/24
--- OUTSIDE RECORDS SUMMARY | 2025-03-02 13:29 | XMS_ITS | Encounter Summary ---
Author Organization [facility] Address [address] [place] [address] Care Team Providers Care Diagnostics Tech Name Role Phone Darius Urbina MD Primary Care Provider [phone] Encounter Details Date Type Department Care Team ([facility] Contact Info) Description 01/19/2025 Results Follow-Up [facility] Diabetes Endocrine Care at [address] [place] [id number] Cruz Mahan, [address] [place] [address] [address] [place], [place] [id number] Thyroid Function [place] Social History Tobacco Use Types Packs/Day Years Used Date Smoking Tobacco: Never Smokeless Tobacco: Never Comments Unknown Sex and Gender Information Value Date Recorded Sex Assigned at Not on file 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
--- OUTSIDE RECORDS SUMMARY | 2025-03-02 13:29 | XMS_ITS | Encounter Summary ---
Author Organization [facility] Address [address] [place] [address] Care Team Providers Care Larriman Name Role Phone Darius Urbina MD Primary Care Provider [phone] Encounter Details Date Type Department Care Team (Late st Contact Info) Description 01/17/[address] [facility] [facility] [address] [place], [place] [id number] Kirit Grace MD [address] [facility]. 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
== END 2025-03-02 11:06 | disposition home or self-care (01) ==
LOC: CHSLAB 11:07
PROVIDERS: PCP Internal Medicine; Visit Provider Internal Medicine
DX: I10 Essential (primary) hypertension (principal); E78.5 Hyperlipidemia, unspecified; R07.9 Chest pain, unspecified; M13.0 Polyarthritis, unspecified
CPT/HCPCS: 36415; 80053; 80061; 81001; 84443; 84550; 85027; 86140